=== PATIENT | female | born 1970 | race Two or more races ===

== ENCOUNTER 2023-01-13 09:43 | Emergency (ER) | payer MEDICAID, SELFPAY ==
[2023-01-13 09:49] VITALS: BP 154/90; PULSE 85; RESP 18; TEMP 36.8; O2SAT 98; BMI 36.4
[2023-01-13] MEDS: BENZOCAINE 30 ML, lidocaine HCL 15 ML MM (10:21)
[2023-01-13] MEDS: KETOROLAC TROMETHAMINE 30 MG/ML VIAL IM (10:21)
[2023-01-13] MEDS: AMOXICILLIN/POTASSIUM CLAV 1 TAB TABLET PO (10:21)
--- NOTE | 2023-01-13 10:28 | ED.GENADUL1 ---
HPI - General Adult General Chief complaint: Dental/Oral Stated complaint: TOOTHACHE Time Seen by Provider: 01/13/23 10:08 History of Present Illness HPI narrative: The patient coming to the ER with a lower dental pain that been going on at least for the last few days the patient did had a history of multiple dental issues before with dental work The patient is coming with a left lower dental pain denying any other complaints she did take Tylenol at home with no effect Related Data Previous Rx's Medication Instructions Recorded amoxicillin 875 mg-potassium 1 tab PO BID #20 tabs 01/13/23 clavulanate 125 mg tablet ibuprofen 600 mg tablet 600 mg PO Q8H PRN pain #20 tabs 01/13/23 Allergies Allergy/AdvReac Type Severity Reaction Status Date / Time acetaminophen [From Percocet] Allergy Unknown Verified 01/13/23 09:49 doxycycline Allergy Unknown Verified 01/13/23 09:49 oxycodone [From Percocet] Allergy Unknown Verified 01/13/23 09:49 Review of Systems ROS Status of ROS 10 or more systems reviewed and unremarkable except as noted in history and below PFSH PFSH Social History Smoking status: Never smoker Exam Narrative Exam Narrative: Nurses notes and vital signs reviewed and patient is not hypoxic Dental exam The patient have a multiple dental work in the left lower mandible in addition to the tooth #17 is totally decayed with the gum that is inflamed and red left-sided lymphadenopathy detected Nurses notes and vital signs reviewed and patient is not hypoxic. General: Well-appearing and in no apparent distress. Skin: Warm, dry, no pallor noted. No rash. Head: Normocephalic, atraumatic. Neck: Supple, non-tender. Eye: Pupils are equal, round and EOMI. No scleral icterus. Ears, Nose, Mouth, and Throat: TM are clear, no nasal mucosal hypertrophy. Oral mucosa is moist, no posterior oropharynx erythema, uvula is mid-line Cardiovascular: Regular Rate and Rhythm without murmur, gallop or rub. Respiratory: No accessory muscle use or respiratory distress. Lungs are clear to auscultation, no wheezing, rales or rhonchi Chest Wall: no tenderness Back: No midline thoracic or lumbar vertebral tenderness. No CVA tenderness Musculoskeletal: normal ROM, no calf or popliteal tenderness, no lower extremity edema/swelling GI: Abdomen is soft, non-distended. Normal bowel sounds. No masses appreciated. No tenderness to palpation. No rebound, guarding, or rigidity noted. Neurological: A&O x4. No cranial nerve dysfunction observed. No truncal ataxia. Moves all extremities. Sensation intact. Psychiatric: Cooperative and interactive. Normal mood and affect. Constitutional Vital Signs, click to edit/add: Last Vital Signs Temp 98.2 F 01/13/23 09:49 Pulse 85 01/13/23 09:49 Resp 18 01/13/23 09:49 BP 154/90 H 01/13/23 09:49 Pulse Ox 98 01/13/23 09:49 O2 Del Method Room Air 01/13/23 09:49 Course Vital Signs Vital signs: Vital Signs Temperature 98.2 F 01/13/23 09:49 Pulse Rate 85 01/13/23 09:49 Respiratory Rate 18 01/13/23 09:49 Blood Pressure 154/90 H 01/13/23 09:49 Pulse Oximetry 98 01/13/23 09:49 Oxygen Delivery Method Room Air 01/13/23 09:49 Temperature 98.2 F 01/13/23 09:49 Pulse Rate 85 01/13/23 09:49 Respiratory Rate 18 01/13/23 09:49 Blood Pressure 154/90 H 01/13/23 09:49 Pulse Oximetry 98 01/13/23 09:49 Oxygen Delivery Method Room Air 01/13/23 09:49 Medical Decision Making [facility] Narrative Medical decision making narrative: The patient presenting to us with a dental infection she was started on Augmentin in addition to supportive care of pain and she will be following up with her dentist with outpatient The patient is to follow up with primary care physician in next 2-3 days or to return to the emergency department should any of the signs or symptoms worsen or new symptoms develop. The patient agrees with the following Diagnosis and Treatment plan and the patient will be discharged home. Discharge Plan Discharge Chief Complaint: Dental/Oral Clinical Impression: Toothache, Dental abscess Time of Disposition Decision: 10:09 Condition: Good Mode of Transportation: Private Vehicle Prescriptions / Home Meds: New amoxicillin-pot clavulanate 875-125 mg tablet 1 tab PO BID Qty: 20 0RF ibuprofen 600 mg tablet 600 mg PO Q8H PRN (Reason: pain) Qty: 20 0RF Instructions: Dental Abscess (ED) Stand Alone Forms: Portal Instructions
== END 2023-01-13 10:38 | disposition home or self-care (01) ==
LOC: ER 10:33
PROVIDERS: Emergency Provider Emergency Medicine
DX: K08.89 Other specified disorders of teeth and supporting structures (principal); K04.7 Periapical abscess without sinus
CPT/HCPCS: 96372; 99284

== ENCOUNTER 2023-06-24 13:03 | Outpatient (OUT) | payer MEDICAID, SELFPAY ==
--- NOTE | 2023-06-24 13:12 | XR_ITS ---
The [place] [id number] Patient Name: VIKKI YEH MRN: [id number] date: 1970 Sex: F Assigned Patient Location: [facility] Current Patient Location: [facility] Accession/Order Number: [id number] Exam Date: 06/24/2023 13:20 Report Date: 06/24/2023 14:37 At the request of: NIR SPIVEY Procedure: XR lumbar spine min 4V EXAMINATION: XR lumbar spine min 4V HISTORY: Sciatica Right Side M54.31 COMPARISON: No relevant comparison available. FINDINGS: BONES: Normal alignment with no acute fracture or spondylolisthesis. Mild to moderate degenerative spondylosis and facet osteoarthropathy DISC SPACES: Mild to moderate multilevel disc space narrowing most significant at L5-S1 PARASPINOUS: Negative. No paraspinous abnormality is seen. OTHER: Negative. XR/XR lumbar spine min 4V IMPRESSION: Mild to moderate degenerative changes Electronically authenticated by: LYNN WILCOX Date: 06/24/2023 14:37
--- NOTE | 2023-06-24 13:12 | XR_ITS ---
The [address] [address] Patient Name: VIKKI YEH MRN: [id number] date: 1970 Sex: F Assigned Patient Location: [facility] Current Patient Location: Accession/Order Number: [id number] Exam Date: 06/24/2023 13:20 Report Date: 06/25/2023 06:38 At the request of: NIR SPIVEY Procedure: XR hip RT min 2V PROCEDURE: XR hip RT min 2V HISTORY: Right Hip Pain M25.551 COMPARISON: None. FINDINGS: BONES:No fracture, acute abnormality, or significant arthropathy. SOFT TISSUES:No visible soft tissue swelling. EFFUSION:None visible. OTHER: Negative. XR/XR hip RT min 2V IMPRESSION: 1. No acute bone abnormality or significant degenerative joint disease. Electronically authenticated by: ARISTEO GÓMEZ Date: 06/25/2023 06:38
== END 2023-06-24 13:04 | disposition home or self-care (01) ==
LOC: MAMMO 13:04
PROVIDERS: Visit Provider Nurse Practitioner
DX: Z12.31 Encounter for screening mammogram for malignant neoplasm of breast (principal); M54.31 Sciatica, right side; M25.551 Pain in right hip; M51.36 Other intervertebral disc degeneration, lumbar region
CPT/HCPCS: 72110; 73502; 77063; 77067

== ENCOUNTER 2023-07-09 15:27 | Outpatient (OUT) | payer MEDICAID, SELFPAY ==
--- OUTSIDE RECORDS SUMMARY | 2023-07-09 15:31 | XMS_ITS | CCD ---
Author Organization [facility] Care Team Providers Care Commanding Officer Garage Name Role Phone Shazia Coker Primary Care Physician Shazia Coker Attending Unavailable Sheela, Shazia Mcclain Admitting Unavailable Sheela, Shazia Mcclain Attending Unavailable Sheela, Shazia Mcclain Attending Unavailable Sheela, Shazia Mcclain Attending Unavailable Sheela, Shazia Mcclain Attending Unavailable Sheela, NURSING SERVICE DIRECTOR Shazia Mcclain Attending Unavailable Sheela, NURSING SERVICE DIRECTORAdriana Mcclain Admitting Unavailable Allergies Allergy Classification Reported Allergen(s) Allergy Type Date of Onset Reaction(s) Facility (2 sources) Doxycycline; Translations: [doxycycline] Drug Allergy Dizziness (finding) [facility] (2 sources) methazolAMIDE; Translations: [methazolamide] Drug Allergy Weal (disorder) [facility] (2 sources) oxyCODONE; Translations: [oxycodone] Drug Allergy Loss of consciousness (finding) [facility] Medications Current Medications Medication Drug Class(es) Dates Sig (Normalized) Sig (Original) loratadine 10 mg oral tablet (1 source) Start: 06-18-2023 take 10 mg by mouth once daily loratadine 10 mg, Oral, Daily, Refills(s) 0 Start Date: 06/18/23 Status: Ordered rimegepant 75 mg disintegrating oral tablet (1 source) Start: 07-03-2023 take 1 tablet by mouth once Nurtec ODT 75 mg oral tablet, disintegrating 75 mg = 1 tab(s), Oral, Once, # 8 tab(s), Refills(s) 0, Samples 8 Start Date: 07/03/23 Status: Ordered traMADol hydrochloride 50 mg oral tablet (1 source) Opioid Agonist Start: 06-18-2023 take 1 tablet by mouth every twelve hours as needed for pain traMADOL 50 mg Tab 50 mg = 1 tab(s), Oral, q12hr, PRN for pain, # 30 tab(s), Refills(s) 0, Pharmacy: [facility]/pharmacy #[id number], 150, cm, 06/18/23 13:20:00 EDT, Height/Length Dosing, 75.8, kg, 06/18/23 13:20:00 EDT, Weight Dosing Start Date: 06/18/23 Status: Ordered Problems Problem Classification Problem Date Documented Da te Episodic/Chronic Genitourinary symptoms and ill-defined conditions (1 source) Urinary incontinence 07-03-2023 Chronic Headache; including migraine (1 source) Migraine 07-03-2023 Chronic Malaise and fatigue (1 source) Fatigue 07-03-2023 Episodic Other non-traumatic joint disorders (1 source) Hip pain 06-18-2023 Episodic Other skin disorders (1 source) Changes in skin texture 07-03-2023 Episodic Other upper respiratory disease (1 source) Polyp of nasal cavity and/or nasal sinus 07-03-2023 Episodic Spondylosis; intervertebral disc disorders; other back problems (1 source) Backache 06-18-2023 Episodic Unclassified (1 source) Cancer cervix screening status 07-03-2023 Unclassified (4 sources) Patient encounter status 06-18-2023 Results Test Name Value Interpretation Reference Range Facility Outside Mammographyon 2023 Outside Mammography [id number]# 1.00TIFF Normal [facility] Reminderson 07-04-2023 Reminders - From: Shazia Kerr To: [facility] - Clinical; Sent: 07/04/2023 10:55:22 EDT Show up: 07/04/2023 10:55:00 EDT Subject: Ambulatory Reminder Due Date/Time: 07/05/2023 10:54:00 EDT labs look good. triglycerides are slightly elevated but cholesterol is good. changing diet will help bring triglycerides down. less greasy, fatty, fried foods Results: Date Result Name Ind Value Ref Range 07/03/2023 9:09 WBC 8.2 E9/L (4.0 - 11.0) 07/03/2023 9:09 RBC 4.6 E12/L (4.3 - 5.9) 07/03/2023 9:09 HGB 13.5 gm/dL (12.0 - 16.0) 07/03/2023 9:09 Hct 40.5 % (34.0 - 46.0) 07/03/2023 9:09 MCV 87.5 fL (80.0 - 100.0) 07/03/2023 9:09 MCH 29.1 pg (27.0 - 34.0) 07/03/2023 9:09 MCHC 33.2 gm/dL (31.4 - 36.0) 07/03/2023 9:09 RDW ((H)) 15.6 % (10.9 - 14.2) 07/03/2023 9:09 Platelet 338.0 E9/L (150.0 - 500.0) 07/03/2023 9:09 MPV 8.1 fL (6.4 - 10.8) 07/03/2023 9:09 Neutro Auto 61.1 % (36.0 - 75.0) 07/03/2023 9:09 Lymph Auto 25.0 % (14.0 - 50.0) 07/03/2023 9:09 Gallia Auto 7.4 % (4.0 - 14.0) 07/03/2023 9:09 Eos Auto 5.4 % (0.0 - 8.0) 07/03/2023 9:09 Basophil Auto 1.1 % (0.0 - 2.0) 07/03/2023 9:09 Neutro Absolute 5.0 E9/L (2.0 - 7.5) 07/03/2023 9:09 Lymph Absolute 2.1 E9/L (1.0 - 4.0) 07/03/2023 9:09 Gallia Absolute 0.6 E9/L (0.2 - 1.0) 07/03/2023 9:09 Eos Absolute 0.4 E9/L (0.0 - 0.5) 07/03/2023 9:09 Basophil Absolute 0.1 E9/L (0.0 - 0.2) 07/03/2023 9:09 Glucose Lvl 81 mg/dL (55 - 199) 07/03/2023 9:09 BUN 9 mg/dL (5 - 21) 07/03/2023 9:09 Creatinine 0.7 mg/dL (0.5 - 1.3) 07/03/2023 9:09 eGFR 103 mL/min/1.73 m2 (>=59 - ) 07/03/2023 9:09 BUN/Creat Ratio 13 (10 - 20) 07/03/2023 9:09 Sodium Lvl 136 mmol/L (135 - 145) 07/03/2023 9:09 Potassium Lvl 4.1 mmol/L (3.5 - 5.3) 07/03/2023 9:09 Chloride 105 mmol/L (101 - 111) 07/03/2023 9:09 CO2 26 mmol/L (21 - 31) 07/03/2023 9:09 AGAP 9 mEq/L (6 - 16) 07/03/2023 9:09 Calcium Lvl 9.2 mg/dL (8.9 - 11.1) 07/03/2023 9:09 Alk Phos 96 Int._Unit/L (21 - 98) 07/03/2023 9:09 ALT 20 Int._Unit/L (6 - 46) 07/03/2023 9:09 AST 20 Int._Unit/L (5 - 43) 07/03/2023 9:09 Total Protein 7.5 gm/dL (6.0 - 7.8) 07/03/2023 9:09 Albumin Lvl 4.2 gm/dL (3.3 - 5.0) 07/03/2023 9:09 Globulin 3.3 gm/dL (1.4 - 4.0) 07/03/2023 9:09 A/G Ratio 1.3 (1.1 - 2.2) 07/03/2023 9:09 Bili Total 0.4 mg/dL (0.0 - 1.1) 07/03/2023 9:09 Chol 143 mg/dL (120 - 200) 07/03/2023 9:09 Trig ((H)) 157 mg/dL ( - <=149) 07/03/2023 9:09 HDL 60 mg/dL 07/03/2023 9:09 LDL Direct 58 mg/dL ( - <=129) 07/03/2023 9:09 VLDL 31 mg/dL (7 - 40) 07/03/2023 9:09 TSH 2.05 mcIU/mL (0.34 - 5.60) Patient informed and voiced understanding. Normal [facility] CBC w/ Auto Diffon 4 Basophils/100 WBC (Bld) 1.1 % Normal 0.0-2.0 [facility] Comment on above: Performed By: #### 2 [id number] #### [facility] [address] [place] [address] Basophils/Leukocytes Auto (Bld) [Pure # fraction] 0.1 E9/L Normal 0.0-0.2 [facility] Comment on above: Performed By: #### 2 [id number] #### [facility] [address] [place] [address] Eosinophils (Bld) [#/Vol] 0.4 E9/L Normal 0.0-0.5 [facility] Comment on above: Performed By: #### 2 [id number] #### [facility] [address] [place] [address] Eosinophils/100 WBC (Bld) 5.4 % Normal 0.0-8.0 [facility] Comment on above: Performed By: #### 2 [id number] #### [facility] [address] [place] [address] Erythrocyte distribution width (RBC) [Ratio] 15.6 % High 10.9-14.2 [facility] Comment on above: Performed By: #### 2 [id number] #### [facility] [address] [place] [address] Hematocrit (Bld) [Volume fraction] 40.5 % Normal 34.0-46.0 [facility] Comment on above: Performed By: #### 2 [id number] #### [facility] [address] [place] [address] Hemoglobin (Bld) [Mass/Vol] 13.5 g/dL Normal 12.0-16.0 [facility] Comment on above: Performed By: #### 2 [id number] #### [facility] [address] [place] [address] Lymphocytes (Bld) [#/Vol] 2.1 E9/L Normal 1.0-4.0 [facility] Comment on above: Performed By: #### 2 [id number] #### [facility] [address] [place] [address] Lymphocytes/100 WBC (Bld) 25.0 % Normal 14.0-50.0 [facility] Comment on above: Performed By: #### 2 [id number] #### [facility] [address] [place] [address] MCH (RBC) [Entitic mass] 29.1 pg Normal 27.0-34.0 [facility] Comment on above: Performed By: #### 2 [id number] #### [facility] [address] [place] [address] MCHC (RBC) [Mass/Vol] 33.2 g/dL Normal 31.4-36.0 [facility] Comment on above: Performed By: #### 2 [id number] #### [facility] [address] [place] [address] MCV (RBC) [Entitic vol] 87.5 fL Normal 80.0-100.0 [facility] Comment on above: Performed By: #### 2 [id number] #### [facility] [address] [place] [address] Monocytes (Bld) [#/Vol] 0.6 E9/L Normal 0.2-1.0 [facility] Comment on above: Performed By: #### 2 [id number] #### [facility] [address] [place] [address] Neutrophils (Bld) [#/Vol] 5.0 E9/L Normal 2.0-7.5 [facility] Comment on above: Performed By: #### 2 [id number] #### [facility] [address] [place] [address] Neutrophils/100 WBC (Bld) 61.1 % Normal 36.0-75.0 [facility] Comment on above: Performed By: #### 2 [id number] #### [facility] [address] [place] [address] Platelet mean volume (Bld) [Entitic vol] 8.1 fL Normal 6.4-10.8 [facility] Comment on above: Performed By: #### 2 [id number] #### [facility] [address] [place] [address] Platelets (Bld) [#/Vol] 338.0 E9/L Normal 150.0-500.0 [facility] Comment on above: Performed By: #### 2 [id number] #### [facility] [address] [place] [address] RBC (Bld) [#/Vol] 4.6 E12/L Normal 4.3-5.9 [facility] Comment on above: Performed By: #### 2 [id number] #### [facility] [address] [place] [address] WBC corrected for nucl RBC Auto (Bld) [#/Vol] 8.2 E9/L Normal 4.0-11.0 [facility] Comment on above: Performed By: #### 2 [id number] #### [facility] [address] [place] [address] CHEMISTRYOrdered By: SYSTEM SYSTEM on 07-03-2023 Albumin [Mass/Vol] 4.2 g/dL Normal 3.3 - 5.0 gm/dL [facility] Albumin/Globulin [Mass ratio] 1.3 {ratio} Normal 1.1 - 2.2 [facility] ALP [Catalytic activity/Vol] 96 [iU]/d Normal 21 - 98 Int._Unit/L [facility] ALT No additional P-5'-P [Catalytic activity/Vol] 20 [iU]/d Normal 6 - 46 Int._Unit/L [facility] Anion gap [Moles/Vol] 9 mmol/L Normal 6 - 16 mEq/L R emisol Chem AST [Catalytic activity/Vol] 20 [iU]/d Normal 5 - 43 Int._Unit/L [facility] Bilirubin [Mass/Vol] 0.4 mg/dL Normal 0.0 - 1 .1 mg/dL [facility] Calcium [Mass/Vol] 9.2 mg/dL Normal 8.9 - 11. 1 mg/dL [facility] Chloride [Moles/Vol] 105 mmol/L Normal 101 - 1 11 mmol/L [facility] Cholesterol [Mass/Vol] 143 mg/dL Normal 120 - 200 mg/dL [facility] Cholesterol in HDL [Mass/Vol] 60 mg/dL Invalid Interpretation Code [facility] Comment on above: Result Comment: '>= 60 LOW RISK' '<= 40 HIGH RISK' Cholesterol in LDL [Mass/Vol] 58 mg/dL Normal <=129mg/dL [facility] Cholesterol in VLDL [Mass/Vol] 31 mg/dL Normal 7 - 40 mg/dL [facility] CO2 [Moles/Vol] 26 mmol/L Normal 21 - 31 mmol/L [facility] Creatinine [Mass/Vol] 0.7 mg/dL Normal 0.5 - 1.3 mg/dL [facility] eGFR 103 mL/min/1.73 m2 Normal >=59mL/mi n/1. 73 m2 [facility] Globulin (S) [Mass/Vol] 3.3 g/dL Normal 1.4 - 4.0 gm/dL [facility] Glucose [Mass/Vol] 81 mg/dL Normal 55 - 199 mg/dL [facility] Potassium [Moles/Vol] 4.1 mmol/L Normal 3.5 - 5.3 mmol/L [facility] Protein [Mass/Vol] 7.5 g/dL Normal 6.0 - 7.8 gm/dL [facility] Sodium [Moles/Vol] 136 mmol/L Normal 135 - 145 mmol/L [facility] Triglyceride [Mass/Vol] 157 mg/dL High <=149mg/dL [facility] TSH Qn 2.05 m[IU]/L Normal 0.34 - 5.60 mcIU/mL [facility] Urea nitrogen [Mass/Vol] 9 mg/dL Normal 5 - 21 mg/dL [facility] Urea nitrogen/Creatinine [Mass ratio] 13 mg/mg Normal 10 - 20 [facility] CMPon 07-03-2023 Albumin [Mass/Vol] 4.2 g/dL Normal 3.3-5.0 [facility] Comment on above: Performed By: #### 2 [id number] #### [facility] [address] [place] [address] Albumin/Globulin (S) [Mass conc ratio] 1.3 Normal 1.1-2.2 [facility] Comment on above: Performed By: #### 2 [id number] #### [facility] [address] [place] [address] ALP [Catalytic activity/Vol] 96 Int._Unit/L Normal 21-98 [facility] Comment on above: Performed By: #### 2 [id number] #### [facility] [address] [place] [address] ALT No additional P-5'-P [Catalytic activity/Vol] 20 Int._Unit/L Normal 6-46 [facility] Comment on above: Performed By: #### 2 [id number] #### [facility] [address] [place] [address] Anion gap [Moles/Vol] 9 mmol/L Normal 6-16 [facility] Comment on above: Performed By: #### 2 [id number] #### [facility] [address] [place] [address] AST [Catalytic activity/Vol] 20 Int._Unit/L Normal 5-43 [facility] Comment on above: Performed By: #### 2 [id number] #### [facility] [address] [place] [address] Bilirubin [Mass/Vol] 0.4 mg/dL Normal 0.0-1.1 [facility] Comment on above: Performed By: #### 2 [id number] #### [facility] [address] [place] [address] Calcium [Mass/Vol] 9.2 mg/dL Normal 8.9-11.1 [facility] Comment on above: Performed By: #### 2 [id number] #### [facility] [address] [place] [address] Chloride [Moles/Vol] 105 mmol/L Normal 101-111 [facility] Comment on above: Performed By: #### 2 [id number] #### [facility] [address] [place] [address] CO2 [Moles/Vol] 26 mmol/L Normal 21-31 [facility] Comment on above: Performed By: #### 2 990264 #### [facility] [address] [place] [address] Creatinine [Mass/Vol] 0.7 mg/dL Normal 0.5-1.3 [facility] Comment on above: Performed By: #### 2 085885 #### [facility] [address] [place] [address] Globulin (S) [Mass/Vol] 3.3 g/dL Normal 1.4-4.0 [facility] Comment on above: Performed By: #### 2 135218 #### [facility] [address] [place] [address] Glucose [Mass/Vol] 81 mg/dL Normal 55-199 [facility] Comment on above: Performed By: #### 2 [id number] #### [facility] [address] [place] [address] Potassium [Moles/Vol] 4.1 mmol/L Normal 3.5-5.3 [facility] Comment on above: Performed By: #### 2 627187 #### [facility] [address] [place] [address] Protein [Mass/Vol] 7.5 g/dL Normal 6.0-7.8 [facility] Comment on above: Performed By: #### 2 855752 #### [facility] [address] [place] [address] Sodium [Moles/Vol] 136 mmol/L Normal 135-145 [facility] Comment on above: Performed By: #### 2 748334 #### [facility] [address] [place] [address] Urea nitrogen [Mass/Vol] 9 mg/dL Normal 5-21 [facility] Comment on above: Performed By: #### 2 532256 #### [facility] [address] [place] [address] Urea nitrogen/Creatinine [Mass ratio] 13 No Units Normal 10-20 [facility] Comment on above: Performed By: #### 2 [id number] #### [facility] [address] [place] [address] Family Medicine Office/Clini c Noteon 07-03-2023 Family Medicine Office/Clinic Note HPI Staff Vikki is a 52 year old female presenting for well woman Woman check up: Last pap: 2020 Last Suze: 2020 Results of lap pap: normal but in 2019 had hyperplasia Where was it done: [place] hx: # of pregnancies.2.. abortions.0.. live births.2.. living children...2 menstrual cycle (normal,heavy,ect): D&C after hyperplasia and it normalized her periods. Had her on progesterone for a couple months History of STD: no Do you want tested for STD today: yes Vaginal discharge, odor, itching: none Self breast exam at home? she doesn't she has lumpy breasts and would call every month thinking something's wrong Hx of breast, cervical or uterine cancer in the family: none questions/concerns: wants to see a urogynecologist for incontinence that's worsening History of Present Illness pt presents today for well woman exam Review of Systems PHQ Score Initial Depression Screen Score: 0 SCORE Physical Exam Vitals & Measurements T: 36.7 ?C(Temporal Artery) HR: 68(Peripheral) RR: 16 BP: 118/66 SpO2: 98% HT: 59 in HT: 150 cm WT: 77.10 kg WT: 169.62 lb BMI: 34.27 General: Well developed, well nourished, in no acute distress Neck: Neck supple. No masses or palpable cervical nodes. Trachea midline. Thyroid without nodules, masses, tenderness, or enlargement Breast: No mass, nodule, discharge, or erythema bilaterally, and no axillary lymphadenopathy Lungs: Normal respiratory effort and clear to auscultation Cardio: Regular rate and rhythm, normal S1 and S2, no murmur, no rub Abdomen: Soft, non-distended, non-tender, normal bowel sounds x4 Gyno: normal external genitalia. Urethra no discharge. Vagina normal without lesions, no vaginal discharge. Cervix normal, without lesions. Uterus normal. No adnexal masses. Pap obtained Neurologic: Grossly normal Skin: Faxon, moist, no tenting Lymph Nodes: No cervical adenopathy, nodes normal Mental Status: Alert and oriented x3. Normal mood and affect Assessment/Plan 1. Well woman exam (Z01.419: Encounter for gynecological examination (general) (routine) without abnormal findings) pt presents today for well woman exam. BSE discussed. mammogram done at [facility]. pap obtained without difficulty. pt scheduled for MRI of back next weeks Ordered: CBC w/ Auto Diff Comprehensive Metabolic Panel Lab Specimen Collect 55900 Lipid Panel PAP [id number] CT/GC/Trich HPV rflx Genotype PAP 520856 CT/GC/Trich HPV rflx Genotype Thyroid Stimulating Hormone 2. Screening for hyperlipidemia (Z13.220: Encounter for screening for lipoid disorders) lipid panel drawn Ordered: CBC w/ Auto Diff Comprehensive Metabolic Panel Lab Specimen Collect 59220 Lipid Panel PAP 324144 CT/GC/Trich HPV rflx Genotype Thyroid Stimulating Hormone 3. Screening for thyroid disorder (Z13.29: Encounter for screening for other suspected endocrine disorder) TSH drawn Ordered: CBC w/ Auto Diff Comprehensive Metabolic Panel Lab Specimen Collect 32987 Lipid Panel PAP [id number] CT/GC/Trich HPV rflx Genotype Thyroid Stimulating Hormone 4. Fatigue (R53.83: Other fatigue) pt c/o fatigue will check CBC and TSH Ordered: CBC w/ Auto Diff Comprehensive Metabolic Panel Lab Specimen Collect 88315 Lipid Panel PAP [id number] CT/GC/Trich HPV rflx Genotype Thyroid Stimulating Hormone 5. Change of, skin texture (R23.4: Changes in skin texture) area on left thigh is dark, hard and has changed in texture. will refer to SHELLY huizar Ordered: [facility] External Ambulatory Referral Lab Specimen Collect [id number]/GC/Trich HPV rflx Genotype 6. Urinary incontinence in female (R32: Unspecified urinary incontinence) c/o worsening urinary incontinence pt requesting referral to urogyn in [place]. Ordered: [facility] External Ambulatory Referral PAP [id number] CT/GC/Trich HPV rflx Genotype 7. Nasal polyps (J33.9: Nasal polyp, unspecified) pt had nasal polyps removed in 2019 and 2020. was supposed to follow up with ENT annually but has not done so since moving to [place], will refer to Dr. Bautista Ordered: [facility] External Ambulatory Referral PAP [id number] CT/GC/Trich HPV rflx Genotype 8. Screening for cervical cancer (Z12.4: Encounter for screening for malignant neoplasm of cervix) pap obtained . pt requesting STD testing as well Ordered: PAP [id number] CT/GC/Trich HPV rflx Genotype PAP [id number] CT/GC/Trich HPV rflx Genotype 9. Migraine (G43.909: Migraine, unspecified, not intractable, without status migrainosus) 10. BMI 34.0-34.9,adult (Z68.34: Body mass index [BMI] 34.0-34.9, adult) BMI education complete Ordered: Body Mass Index (BMI) documented 3008F CBC w/ Auto Diff Comprehensive Metabolic Panel Current tobacco non-user 1036F Depression Screening Negative 3352F Lipid Panel Most recent diastolic blood pressure <80 mm Hg 3078F PAP [id number] CT/GC/Trich HPV rflx Genotype Systolic BP <130 mm Hg (Most Recent) 3074F Thyroid Stimulating Hormone 11. Class 1 obesity due to e (more content not included)... Normal [facility] Comment on above: Result Comment: Elec tronically Signed By: Shazia Kerr\.br\Date and Time Signed: 07/03/23 09:29 EDT HEMATOLOGYOrdered By: SYSTEM SYSTEM on 07-03-2023 Basophils/100 WBC (Bld) 1.1 % Normal 0.0 - 2.0 % [facility] Basophils/Leukocytes Auto (Bld) [Pure # fraction] 0.1 E9/L Normal 0.0 - 0.2 E9/L [facility] Eosinophils (Bld) [#/Vol] 0.4 E9/L Normal 0.0 - 0.5 E9/L [facility] Eosinophils/100 WBC (Bld) 5.4 % Normal 0.0 - 8.0 % [facility] Erythrocyte distribution width (RBC) [Ratio] 15.6 % High 10.9 - 14.2 % [facility] Hematocrit (Bld) [Volume fraction] 40.5 % Normal 34.0 - 46.0 % [facility] Hemoglobin (Bld) [Mass/Vol] 13.5 g/dL Normal 12.0 - 16.0 gm/dL [facility] Lymphocytes (Bld) [#/Vol] 2.1 E9/L Normal 1.0 - 4.0 E9/L [facility] Lymphocytes/100 WBC (Bld) 25.0 % Normal 14.0 - 50.0 % [facility] MCH (RBC) [Entitic mass] 29.1 pg Normal 27.0 - 34.0 pg [facility] MCHC (RBC) [Mass/Vol] 33.2 g/dL Normal 31.4 - 36.0 gm/dL [facility] MCV (RBC) [Entitic vol] 87.5 fL Normal 80.0 - 100.0 fL [facility] Monocytes (Bld) [#/Vol] 0.6 E9/L Normal 0.2 - 1.0 E9/L [facility] Monocytes/100 WBC (Bld) 7.4 % Normal 4.0 - 14.0 % [facility] Neutrophils (Bld) [#/Vol] 5.0 E9/L Normal 2.0 - 7.5 E9/L [facility] Neutrophils/100 WBC (Bld) 61.1 % Normal 36.0 - 75.0 % [facility] Platelet mean volume (Bld) [Entitic vol] 8.1 fL Normal 6.4 - 10.8 fL [facility] Platelets (Bld) [#/Vol] 338.0 E9/L Normal 150.0 - 500.0 E9/L [facility] RBC (Bld) [#/Vol] 4.6 E12/L Normal 4.3 - 5.9 E12/L [facility] WBC corrected for nucl RBC Auto (Bld) [#/Vol] 8.2 E9/L Normal 4.0 - 11.0 E9/L [facility] Lipid Panelon 07-03-2023 Cholesterol [Mass/Vol] 143 mg/dL Normal 120-200 [facility] Comment on above: Performed By: #### 2 [id number] #### [facility] [address] [place] [address] Cholesterol in HDL [Mass/Vol] 60 mg/dL Invalid Interpretation Code [facility] Comment on above: Result Comment: '>= 60 LOW RISK' '<= 40 HIGH RISK' Performed By: #### 2 [id number] #### [facility] [address] [place] [address] Cholesterol in LDL [Mass/Vol] 58 mg/dL Normal <=129 [facility] Comment on above: Performed By: #### 2 [id number] #### [facility] [address] [place] [address] Cholesterol in VLDL [Mass/Vol] 31 mg/dL Normal 7-40 [facility] Comment on above: Performed By: #### 2 272476 #### [facility] [address] [place] [address] Triglyceride [Mass/Vol] 157 mg/dL High <=149 [facility] Comment on above: Performed By: #### 2 [id number] #### [facility] [address] [place] [address] PAP [id number] 07-03-2023 PAP [id number] cancel Invalid Interpretation Code [facility] Comment on above: Performed By: #### 1 [id number] #### [facility] [address] [place] [address] Gynecological Body Site ENDOCERVIX Normal [facility] Comment on above: Performed By: #### 1 [id number] #### [facility] [address] [place] [address] Physician Referralon 024 Physician Referral [id number] #1.00TIFF Normal [facility] Physician Referral [id number] #1.00TIFF Normal [facility] Physician Referral [id number] 9#1.00TIFF Normal [facility] TSHon 07-03-2023 TSH Qn 2.05 m[IU]/L Normal 0.34-5.60 [facility] Comment on above: Performed By: #### 2 [id number] #### [facility] [address] [place] [address] eGFRon 07-03-2023 eGFR 103 mL/min/1.73 m2 Normal >=59 [facility] Comment on above: Order Comment: Order added by Discern Expert. Performed By: #### 1 [id number] #### [facility] [address] [place] [address] RAD - MISCon 06-25-2023 RAD - MIS [id number]# 1.00TIFF Normal [facility] RAD - MISC [id number] #1.00TIFF Normal [facility] Ambulatory Visit Summaryon 0 06-18-2023 Ambulatory Visit Summary VIKKI YEH :1970 Visit Date:06/18/2023 Ambulatory Visit Instructions Your Diagnosis Breast cancer screening by mammogram Back pain with right-sided sciatica Right hip pain BMI 33.0-33.9,adult Non-smoker Tests Performed MA Mamm Screen w/CAD if perf and 3D [place] -- Results Pending -- XR Hip 2-3 Views Right -- Results Pending -- XR Spine Lumbosacral Minimum 4 Views -- Results Pending -- Please visit your patient portal for your results or contact your primary care physician. Your Care Team Attending Physician - Shazia Kerr Primary Care Physician - Shazia Kerr This Is Your Medications List loratadine Procedures Performed Surgery, Surgery, Surgery. Discharge Vitals Heart Rate (Peripheral) 80 Respiratory Rate 18 Blood Pressure 124/76 Height 150 cm Height 59 in Weight 75.75 kg Weight 166.65 lb BMI 33.67 What to do next Scheduled Follow-Up Appointments Saturday. 2023 8:20 AM EDT With: Shazia Kerr Where: [facility] [place] Normal [facility] Family Medicine Office/Clini c Noteon 06-18-2023 Family Medicine Office/Clinic Note HPI Staff Vikki is a 52 year old female presenting to [facility] care Establish Care: History: Any previous diagnosis: Gerd, Migraine, Vertigo, Allergic Rhinitis , Right side Tinnitus, Chronic Sinusitis History of seeing any specialist: ENT When was your last doctors visit: Last provider: new to area Any recent labs: nothing in the last year Health Maintenance UTD: Colonoscopy: 2 years ago, removed one polyup everything else was normal Mammogram: 2000 normal( would like order for [facility] and go to [place]) Pelvic/Pap: 2000 normal EGD: had 2 of them had them done in [place] Current issues/complaints: Pain characteristics: Pain location: Right hip and leg pain Intensity:3/10 sitting, when moving or at night 7/10 Onset: 5-6 months ago gradually started, worse in 2 months Medication used: Aspercreme, Bengay, heating pad, tylenol Having a hard time going up stairs, this Saturday pain woke her up out of sleep had to sleep on the chair. Had hit right hip a few time on end of bed unsure if this is what caused the pain. Having radiculopathy down right side. Pain is aching and then turns to sharp, night time is the worst. Hasn't had any imaging done. has been told she has herniated disc at either L4 or L5. Has done PT and injections done for that. Would like referral to ENT she is to be checked ever 6 months to have nasal passaged checked Hasn't had a migraines in several months. Pt states she use to see a neurologist and was diagnosed with migraines. She use to take Nurtec and another medication. Pt is going to contact her old pharmacy and get the names and doses of medication. History of Present Illness pt c/o right hip and lower back pain with sciatica Review of Systems PHQ Score Initial Depression Screen Score: 0 SCORE Physical Exam Vitals & Measurements HR: 80(Peripheral) RR: 18 BP: 124/76 SpO2: 99% HT: 59 in HT: 150 cm WT: 75.75 kg WT: 166.65 lb BMI: 33.67 General: alert, no acute distress ENMT: oral mucosa moist, no pharyngeal erythema or exudate Cardiovascular: regular rate and rhythm, normal peripheral perfusion Respiratory: Lungs CTA, respirations non labored Extremities: no deformity, no trauma Neurological: oriented x 4, LOC appropriate for age, CN II-XII intact, motor strength equal & normal bilaterally, speech normal Assessment/Plan 1. Back pain with right-sided sciatica (M54.31: Sciatica, right side) low back pain with right sciatica. pt has been doing exercises she learned at Physical therapy for about 2 months. can not take anit inflammatory due to acid reflux. will order medrol dose pack and tramadol for bedtime. is not able to sleep due to pain. RTC 2 weeks for well woman exam Ordered: methylPREDNISolone, = 1 packet(s), Oral, As Directed, as directed on package labeling, X 6 day(s), # 21 tab(s), Refills(s) 0, Pharmacy: [facility]/pharmacy #[id number], 150, cm, 06/18/23 13:20:00 EDT, Height/Length Dosing, 75.8, kg, 06/18/23 13:20:00 EDT, Weight Dosing tramadol, 50 mg = 1 tab(s), Oral, q12hr, PRN for pain, # 30 tab(s), Refills(s) 0, Pharmacy: [facility]/pharmacy #[id number], 150, cm, 06/18/23 13:20:00 EDT, Height/Length Dosing, 75.8, kg, 06/18/23 13:20:00 EDT, Weight Dosing XR Hip 2-3 Views Right XR Spine Lumbosacral Minimum 4 Views 2. Right hip pain (M25.551: Pain in right hip) x ray order provided will go to [facility] Ordered: methylPREDNISolone, = 1 packet(s), Oral, As Directed, as directed on package labeling, X 6 day(s), # 21 tab(s), Refills(s) 0, Pharmacy: [facility]/pharmacy #[id number], 150, cm, 06/18/23 13:20:00 EDT, Height/Length Dosing, 75.8, kg, 06/18/23 13:20:00 EDT, Weight Dosing tramadol, 50 mg = 1 tab(s), Oral, q12hr, PRN for pain, # 30 tab(s), Refills(s) 0, Pharmacy: [facility]/pharmacy #[id number], 150, cm, 06/18/23 13:20:00 EDT, Height/Length Dosing, 75.8, kg, 06/18/23 13:20:00 EDT, Weight Dosing XR Hip 2-3 Views Right XR Spine Lumbosacral Minimum 4 Views 3. Breast cancer screening by mammogram (Z12.31: Encounter for screening mammogram for malignant neoplasm of breast) mammogram order provided Ordered: methylPREDNISolone, = 1 packet(s), Oral, As Directed, as directed on package labeling, X 6 day(s), # 21 tab(s), Refills(s) 0, Pharmacy: [facility]/pharmacy #[id number], 150, cm, 06/18/23 13:20:00 EDT, Height/Length Dosing, 75.8, kg, 06/18/23 13:20:00 EDT, Weight Dosing tramadol, 50 mg = 1 tab(s), Oral, q12hr, PRN for pain, # 30 tab(s), Refills(s) 0, Pharmacy: [facility]/pharmacy #[id number], 150, cm, 06/18/23 13:20:00 EDT, Height/Length Dosing, 75.8, kg, 06/18/23 13:20:00 EDT, Weight Dosing MA Mamm Screen w/CAD if perf and 3D [place] 4. BMI 33.0-33.9,adult (Z68.33: Body mass index [BMI] 33.0-33.9, adult) BMI education complete Ordered: methylPREDNISolone, = 1 packet(s), Oral, As Directed, as directed on package labeling, X 6 day(s), # 21 tab(s), Refills(s) 0, Pharmacy: [facility]/pharmacy #[id number], 150, cm, 06/18/23 13:20:00 EDT, Height/Length Dosing, 75.8, kg, 06/18/23 13:20:00 EDT, Weight Dosing tramadol, 50 mg = 1 tab(s), Oral, q12hr, PRN for pain, (more content not included)... Normal [facility] Comment on above: Result Comment: Elec tronically Signed By: Sheela BLANCO, Shazia Mcclain\.br\Date and Time Signed: 06/18/23 17:37 EDT Encounters Encounter Date Encounter Type Care Provider Facility Start: 07-03-2023 End: 07-04-2023 ambulatory Shazia Coker Facility:[facility] Start: 07-03-2023 End: 07-03-2023 Lab Drop off Shazia Coker [facility] Start: 06-18-2023 End: 06-19-2023 ambulatory Shazia L Sheela Facility:[facility] Margaret noe Start: 06-17-2023 ambulatory Shazia L Sheela Facility: [facility] [place] Procedures Date Procedure Procedure Detail Performing Clinician Cerclage Shazia Coker Comment on above: 2007 Surgery (qualifier value) Margareth bustos Sheela Surgical procedure Shazia Schw ab Payers Date Payer Category Payer Private Health Insurance [id number] 1970 Unknown [id number] 1970 Unknown [id number] 1970 Unknown [id number] 1970 Unknown [id number] Social History Date Type Detail Facility Start: 07-03-2023 Tobacco smoking status Never s moked tobacco (finding) [facility] Tobacco smoking status Never [facility] Sex Assigned At Female [facility] Evaluation + Plan note 07-03-2023 Note Date & Type Note Facility 07-03-2023 Evaluation + Plan note Diagnostic Tests PendingWIP [id number] CT/GC/Trich HPV rflx Genotype 07/03/23 [facility] Hospital course Narrative Note Date & Type Note Facility Hospital course Narrative No data available for this section [facility] Hospital Discharge instructions Note Date & Type Note Facility Hospital Discharge instructions No data available for this section [facility] Progress note Note Date & Type Note Facility Progress note No data available for this section [facility] Summary Purpose Family History No Family History Records Found Advance Directives No Advanced Directives Records FoundNo Advanced Directives Records FoundNo Advanced Directives Records FoundNo Advanced Directives Records FoundNo Advanced Directives Records FoundNo Advanced Directives Records FoundNo Advanced Directives Records Found Additional Source Comments Patient Care team informatio n (unrecognized section and content) Personnel Name: Shazia Kerr Address: Address: [address] [place] [address]- INFORMATION SOURCE (unrecogn ized section and content) DATE CREATED AUTHOR 07/04/2023 [facility] DATE CREATED AUTHOR AUTHOR'S ORGANIZ ATION 07/05/2023 [facility] DATE CREATED AUTHOR AUTHOR'S ORGANIZ ATION 07/06/2023 [facility] FOR RECORDS PERTAINING TO PATIENTS WHO ARE OR HAVE BEEN ENROLLED IN A CHEMICAL DEPENDENCY/SUBSTANCEABUSE PROGRAM, SOME INFORMATION MAY BE OMITTED. This clinical summary was aggregated from multiple sources. Caution should be exercised in using it in the provision of clinical care. This summary normalizes information from multiple sources, and as a consequence, information in this document may materially change the coding, format and clinical context of patient data. In addition, data may be omitted in some cases. CLINICAL DECISIONS SHOULD BE BASED ON THE PRIMARY CLINICAL RECORDS. [facility] [employer] provides no warranty or guarantee of the accuracy or completeness of information in this document.
--- NOTE | 2023-07-09 15:32 | MR_ITS ---
[address] [address] Patient Name: VIKKI YEH MRN: [id number] date: 1970 Sex: F Assigned Patient Location: MRI Current Patient Location: Accession/Order Number: [id number] Exam Date: 07/09/2023 15:44 Report Date: 07/10/2023 07:25 At the request of: NIR SPIVEY Procedure: MR lumbar spine wo con EXAMINATION: MR lumbar spine wo con HISTORY: Degenerative disc disase, low back pain with right sciatica COMPARISON: 06/24/23 plain x-ray TECHNIQUE: A variety of imaging planes and parameters were utilized for visualization of suspected pathology. FINDINGS: For the purposes of numbering, sagittal T2 image # 8 extends from the T10 vertebral body superiorly to the S3-S4 level inferiorly. PARASPINAL AREA: Normal with no visible mass. BONES: Normal alignment of the lumbar vertebral bodies with no acute fracture or spondylolisthesis. Signal abnormality inferior L4 superior L5 vertebral bodies with decreased T1 increased T2 signal, Modic type I changes . Mild degenerative spondylosis and facet osteoarthropathy CORD/CAUDA EQUINA: Normal caliber, contour, and signal intensity. DISC LEVELS: 12-L1: Early degenerative disc disease is present without focal protrusion or neural impingement. L1-L2: Moderate degenerative disc disease is present without visible neural impingement. L2-L3: Moderate degenerative disc disease is present without visible neural impingement. L3-L4: Moderate degenerative disc disease is present without visible neural impingement. L4-L5: Modic 1 endplate changes consistent with edema/inflammation. Asymmetric narrowing right greater than left. Moderate diffuse disc/osteophyte complex with posterior broad-based disc herniation of the protrusion type, extending posteriorly up to 3.4 mm, this abuts but does not efface the nerves. No foraminal stenosis. L5-S1: Disc desiccation. Posterior disc protrusion measuring 2 mm. No central or foraminal stenosis MR/MR lumbar spine wo con IMPRESSION: Degenerative changes throughout the lumbar spine most significant at L4-L5 where posterior central broad-based disc herniation the protrusion type is observed abutting but not effacing the nerves Electronically authenticated by: LYNN WILCOX Date: 07/10/2023 07:25
== END 2023-07-09 15:28 | disposition home or self-care (01) ==
LOC: MRI 15:27
PROVIDERS: PCP Nurse Practitioner; Visit Provider Nurse Practitioner
DX: M51.36 Other intervertebral disc degeneration, lumbar region (principal); M54.41 Lumbago with sciatica, right side
CPT/HCPCS: 72148

== ENCOUNTER 2023-09-10 13:20 | Outpatient (OUT) | payer MEDICAID, SELFPAY ==
--- NOTE | 2023-09-10 | CONS_ITS ---
CONSULTATION DATE: 09/10/2023 TO: Antoine Corral M.D. and Dr. Faviola Toscano CHIEF COMPLAINT: Includes severe right hip pain. HISTORY: Patient complains of pain in her right hip area. She is a 52-year-old female, who reports having pain starting in this area approximately six months ago. It occurred spontaneously, increased gradually to its present state, where she complains at least 5-7/10 pain, described as a stabbing type of pain in her right hip area, increased with activities such as standing, walking and performing transitioning maneuvers. She feels most comfortable in the semi- recumbent position. Denies any change in bowel and bladder habits or new sensorimotor changes in the lower extremities. CURRENT MEDICATIONS: Include Aleve, topical Maikel-Good, Biofreeze and she reports she has tried Flexeril in the past. Her FERN on today?s visit is 42%. EXAMINATION: Notable for patient having no clinical radiculopathy or myelopathy involving the lower extremities. The patient did have significant tenderness overlying the right greater trochanteric area, just proximal to the insertion of the gluteus medius muscle on the right side. IMPRESSION: Our impression is patient with chronic pain secondary to right trochanteric bursitis. RECOMMENDATIONS: I have recommended she consider using a Lidoderm patch over the affected area. I have given her a script for baclofen 10 mg pills, half a pill to one pill b.i.d. and to consider proceeding with a right trochanteric bursa injection in the office. Gone over the details of the procedure with the patient. All her questions were answered. She agrees to proceed with the outlined plan. Will obtain approval for the procedure. As part of providing excellent, safe, comprehensive care, the following was completed at our patient's visit: 1. A medication reconciliation and review to ensure accurate knowledge of current/active medications, including asking our patients to inform us about any bugr-esn-ncvhyeh medications or herbal remedies/nutritional supplements/alternative remedies. 2. A review to specifically ensure our patients have had annual screening for: elevated body mass index (BMI, see intake chart for exact total), tobacco use, screening for depression, and screening for unhealthy alcohol use. When screening is concerning, patients are provided with education and the specific recommendation to discuss the concerning health issue and treatment options with their primary care provider. DAWNA
--- OUTSIDE RECORDS SUMMARY | 2023-09-10 13:43 | XMS_ITS | CCD ---
Author Organization [facility] Care Team Providers Care Industrial Staff Nurse Name Role Phone Shazia Coker Primary Care Physician Patric Shazia L Attending Unavailable Patric, ADULT AND PEDIATRIC NEUROLOGIST Shazia L Attending Unavailable Patric, ADULT AND PEDIATRIC NEUROLOGIST Shazia L Admitting Unavailable Patric, ADULT AND PEDIATRIC NEUROLOGIST Shazia L Admitting Unavailable Patric, ADULT AND PEDIATRIC NEUROLOGIST Shazia L Attending Unavailable Patric, ADULT AND PEDIATRIC NEUROLOGIST Shazia L Attending Unavailable Patric, ADULT AND PEDIATRIC NEUROLOGIST Shazia L Attending Unavailable Patric, FRANCIS Shazia L Attending Unavailable MD Antoine Corral Primary Care Provider MD Justus Toscano Attending Provider DOROTHY DYER Attending Unavailable PATRIC, SHAZIA Referring Unavailable GERALDINE MOISE Attending Unavailable PATRIC, SHAZIA Referring Unavailable Justus Toscano Attending Unavailable Justus Toscano Admitting Unavailable Antoine Corral Primary Care Unavailable Allergies Allergy Classification Reported Allergen(s) Allergy Type Date of Onset Reaction(s) Facility (2 sources) Doxycycline; Translations: [doxycycline] Drug Allergy Dizziness (finding) [facility] (4 sources) methazolAMIDE; Translations: [methazolamide] Drug Allergy 4 Weal (disorder) [facility] (2 sources) oxyCODONE; Translations: [oxycodone] Drug Allergy Loss of consciousness (finding) [facility] (2 sources) Acetaminophen / oxyCODONE Drug Allergy 4 Anaphylaxis [facility] (2 sources) doxyclin Allergy to substance 4 Dizziness [facility] Medications Current Medications Medication Drug Class(es) Dates Sig (Normalized) Sig (Original) cholecalciferol 0.025 mg oral capsule (1 source) Vitamin D Start: 08-29-2023 take 25 ug by mouth once daily Cholecalciferol (Vitamin D3) Active 25 MCG PO Daily August 29, 2023 12:00am loratadine 10 mg oral tablet (2 sources) Start: 08-29-2023 take 1 tablet by mouth once daily Loratadine (Claritin) 10 mg tablet Active 10 MG PO Daily August 29, 2023 12:00am Start: 06-18-2023 take 10 mg by mouth [...] Ordered traMADol hydrochloride 50 mg oral tablet (2 sources) Opioid Agonist Start: 08-29-2023 Tramadol Activ e MG PO August 29, 2023 12:00am Start: 06-18-2023 take 1 tablet by edward th every twelve hours as needed for pain traMADOL 50 mg Tab 50 mg = 1 tab(s), Oral, q12hr, PRN for pain, # 30 tab(s), Refills(s) 0, Pharmacy: [facility]/pharmacy #[id number], 150, cm, 06/18/23 13:20:00 EDT, Height/Length Dosing, 75.8, kg, 06/18/23 13:20:00 EDT, Weight Dosing Start Date: 06/18/23 Status: Ordered Completed/Discontinued Medications Medication Drug Class(es) Dates Sig (Normalized) Sig (Original) Ciprofloxacin (2 sources) Quinolone Antimicrobial Start: 04-17-2023 End: 08-29-2023 Ciprofloxacin Hcl (Ciloxan) 0.3 % ointment Discontinued 1 APPLIC EYE-LEFT Three times daily 3.5 April 17, 2023 1:00am August 29, 2023 1:16pm Start: 04-17-2023 Ciprofloxacin Hcl (Ciloxan) 0.3 % ointment Active 1 APPLIC EYE-LEFT Three times daily 3.5 April 17, 2023 1:00am fluticasone propionate 0.05 mg/actuat metered dose nasal spray (1 source) Corticosteroid Start: 08-29-2023 End: 08-29-2023 Fluticasone Propionate Discontinued INTRANASAL August 29, 2023 12:00am August 29, 2023 1:16pm Problems Problem Classification Problem Date Documented Date Episodic/Chronic Esophageal disorders (2 sources) Gastroesophageal reflux disease; Translations: [Gastro-esophageal reflux disease without esophagitis] 04-17-2023 Chronic Genitourinary symptoms and ill-defined conditions (1 source) Urinary incontinence 07-03-2023 Chronic Headache; including migraine (1 source) Migraine 07-03-2023 Chronic Malaise and fatigue (1 source) Fatigue 07-03-2023 Episodic Other non-traumatic joint disorders (1 source) Hip pain 06-18-2023 Episodic Other skin disorders (1 source) Changes in skin texture 07-03-2023 Episodic Other upper respiratory disease (2 sources) Seasonal allergic rhinitis; Translations: [Other seasonal allergic rhinitis] 04-17-2023 Chronic Other upper respiratory disease (1 source) Polyp of nasal cavity and/or nasal sinus 07-03-2023 Episodic Spondylosis; intervertebral disc disorders; other back problems (1 source) Backache 06-18-2023 Episodic Unclassified (1 source) Cancer cervix screening status 07-03-2023 Unclassified (4 sources) Patient encounter status 06-18-2023 Unclassified (1 source) Low back pain, unspecified; Translations: [Low back pain, unspecified] Onset: 08-28-2023 Results Test Name Value Interpretation Reference Range Facility XR lumbar spine 6V w bending on 08-28-2023 XR lumbar spine 6V w bending [facility] [place] [address] XRay Report Signed Patient: Vikki Power MR#: [id number] [birth year] : 1970 Acct:[id number] Age/Sex: 52 / F ADM Date: 08/28/23 Loc: XD Room: Type: [facility] Attending Dr: Justus Toscano MD Copies to: Justus Toscano MD Ordering Provider: Justus Toscano MD Date of Service: 08/28/23 XR/XR lumbar spine 6V w bending: M54.50 - Low back pain, unspecified LUMBAR SPINE WITH FLEXION, EXTENSION AND BENDING VIEWS - 6 views: CLINICAL HISTORY: Low back pain with radiation to the hips and down to the left knee. No reported injury. COMPARISON: 06/24/2023 Standing AP neutral, right and left bending and lateral views in neutral, flexion and extension were obtained. There is reverse S-shaped thoracolumbar scoliotic curvature. No acute compression fractures are identified. There is minimal retrolisthesis of L3 on L4, L4 and L5 and L5 on S1. Alignment does not change significantly with flexion or extension. There is mild multilevel disc space narrowing and endplate spurring. There is also mid and lower lumbar facet hypertrophy. The SI joints are intact. No paraspinal soft tissue abnormalities are seen. XR/XR lumbar spine 6V w bending IMPRESSION: SCOLIOSIS AND DEGENERATIVE CHANGES, DESCRIBED. Impression dictated by: Brandi Weinstein M.D.08/28/2023 4:52 PM Dictation Location: [place] [address] Transcribed By: [facility] 08/28/23 1652 Dictated By: Brandi Weinstein MD 08/28/23 1644 Signed By: 08/28/23 1652 Normal [facility] Physician Referralon 024 Physician Referral [id number]#1.00TIFF Normal [facility] Consultation Noteon 07-10-19 Consultation Note [id number] #1.00TIFF Normal [facility] RAD - MRI Reporton RAD - MRI Report [id number] #1.00TIFF Normal [facility] Reminderson 07-10-2023 Reminders - From: Shazia Kerr To: [facility] - Clinical; Sent: 07/10/2023 08:34:02 EDT Show up: 07/10/2023 08:34:00 EDT Subject: Ambulatory Reminder Due Date/Time: 07/11/2023 08:33:00 EDT Pap, HPV and all STD tests were negative Results: Date Result Name Value Ref Range 07/03/2023 9:20 Chlamydia Negative (Negative - ) 07/03/2023 9:20 Gonococcus Negative (Negative - ) 07/03/2023 9:20 HPV Aptima Negative (Negative - ) 07/03/2023 9:20 PAP [id number] Note 07/03/2023 9:20 Trich vag by STEFFANIE Negative (Negative - ) Patient informed and voiced understanding. Normal [facility] PAP [id number] 07-09-2023 C. trachomatis rRNA STEFFANIE+probe Ql (Cvx) Negative Invalid Interpretation Code Negative [facility] Comment on above: Performed By: #### 1 [id number] #### [facility] [address] [place] [address] Cytology report Cyto stain Doc (Cvx/Vag) Note Invalid Interpretation Code [facility] Comment on above: Result Comment: TEST S RESULT FLAG UNITS REF RANGE LAB Clinician Provided Cytology Information Source.............Cervix No. of containers..01 ThinPrep Vial DIAGNOSIS: 01 NEGATIVE FOR INTRAEPITHELIAL LESION OR MALIGNANCY. Specimen adequacy: 01 Satisfactory for evaluation. Endocervical and/or squamous metaplastic cells (endocervical component) are present. Performed by: Tamera Lee, Salt Machine Operator ([facility]) . 01 Note: Note 01 The Pap smear is a screening test designed to aid in the detection of premalignant and malignant conditions of the uterine cervix. It is not a diagnostic procedure and should not be used as the sole means of detecting cervical cancer. Both false-positive and false-negative reports do occur. Test Methodology: Note 01 This liquid based ThinPrep(R) pap test was screened with the use of an image guided system. HPV Genotype Reflex Note 01 Criteria not met, HPV Genotype not performed. FLAG LEGEND: L-Low Normal,H-High Normal,LL-Alert Low,HH-Alert High <-Panic Low,>-Panic High,A-Abnormal,AA-Critical Abnormal Performed at: [address] [address] Callie Cardona MD, Performed By: #### 1 [id number] #### [facility] [address] [place] [address] HPV 16+18+31+33+35+39+45+ 51+52+56+58+59+66+68 DNA Probe+sig amp Ql (Cvx) Negative Invalid Interpretation Code Negative [facility] Comment on above: Result Comment: This nucleic acid amplification test detects fourteen high-risk HPV types (16,18,31,33,35,39,45,51,52,56,58,59,66,68) without differentiation. Performed By: #### 1 [id number] #### [facility] [address] [place] [address] N. gonorrhoeae rRNA STEFFANIE+probe Ql (Cvx) Negative Invalid Interpretation Code Negative [facility] Comment on above: Performed By: #### 1 [id number] #### [facility] [address] [place] [address] T. vaginalis rRNA STEFFANIE+probe Ql (Unsp spec) Negative Invalid Interpretation Code Negative [facility] Comment on above: Result Comment: Perf ormed at: [facility] [id number] MD Brendan Ledesma Performed at: = [facility] [id number] MD Brendan Ledesma Performed By: #### 1 [id number] #### [facility] [address] [place] [address] Outside Mammographyon 2023 Outside Mammography [id number]# 1.00TIFF Normal [facility] Reminderson 07-04-2023 Reminders - From: Shazia [...] 25.0 % (14.0 - 50.0) 07/03/2023 9:09 Storey Auto 7.4 % (4.0 - 14.0) 07/03/2023 9:09 Eos Auto 5.4 % (0.0 - 8.0) 07/03/2023 9:09 Basophil Auto 1.1 % (0.0 - 2.0) 07/03/2023 9:09 Neutro Absolute 5.0 E9/L (2.0 - 7.5) 07/03/2023 9:09 Lymph Absolute 2.1 E9/L (1.0 - 4.0) 07/03/2023 9:09 Storey Absolute 0.6 E9/L (0.2 - 1.0) 07/03/2023 [...] 5.60) Patient informed and voiced understanding. Normal [facility] CBC w/ Auto Diffon 4 Basophils/100 WBC (Bld) 1.1 % Normal 0.0-2.0 [facility] Comment on above: Performed By: #### 2 [id number] #### [facility] [address] [place] [address] Basophils/Leukocytes Auto (Bld) [Pure # fraction] 0.1 E9/L Normal 0.0-0.2 [facility] Comment on above: Performed By: #### 2 [id number] #### [facility] [address] [place] [address] Eosinophils (Bld) [#/Vol] 0.4 E9/L Normal 0.0-0.5 [facility] Comment on above: Performed By: #### 2 [id number] #### [facility] [address] [place] [address] Eosinophils/100 WBC (Bld) 5.4 % Normal 0.0-8.0 [facility] Comment on above: Performed By: #### 2 [id number] #### [facility] [address] [place] [address] Erythrocyte distribution width (RBC) [Ratio] 15.6 % High 10.9-14.2 [facility] Comment on above: Performed By: #### 2 [id number] #### [facility] [address] [place] [address] Hematocrit (Bld) [Volume fraction] 40.5 % Normal 34.0-46.0 [facility] Comment on above: Performed By: #### 2 [id number] #### [facility] [address] [place] [address] Hemoglobin (Bld) [Mass/Vol] 13.5 g/dL Normal 12.0-16.0 [facility] Comment on above: Performed By: #### 2 [id number] #### [facility] [address] [place] [address] Lymphocytes (Bld) [#/Vol] 2.1 E9/L Normal 1.0-4.0 [facility] Comment on above: Performed By: #### 2 [id number] #### [facility] [address] [place] [address] Lymphocytes/100 WBC (Bld) 25.0 % Normal 14.0-50.0 [facility] Comment on above: Performed By: #### 2 [id number] #### [facility] [address] [place] [address] MCH (RBC) [Entitic mass] 29.1 pg Normal 27.0-34.0 [facility] Comment on above: Performed By: #### 2 [id number] #### [facility] [address] [place] [address] MCHC (RBC) [Mass/Vol] 33.2 g/dL Normal 31.4-36.0 [facility] Comment on above: Performed By: #### 2 [id number] #### [facility] [address] [place] [address] MCV (RBC) [Entitic vol] 87.5 fL Normal 80.0-100.0 [facility] Comment on above: Performed By: #### 2 [id number] #### [facility] [address] [place] [address] Monocytes (Bld) [#/Vol] 0.6 E9/L Normal 0.2-1.0 [facility] Comment on above: Performed By: #### 2 753258 #### [facility] [address] [place] [address] Neutrophils (Bld) [#/Vol] 5.0 E9/L Normal 2.0-7.5 [facility] Comment on above: Performed By: #### 2 [id number] #### [facility] [address] [place] [address] Neutrophils/100 WBC (Bld) 61.1 % Normal 36.0-75.0 [facility] Comment on above: Performed By: #### 2 [id number] #### [facility] [address] [place] [address] Platelet mean volume (Bld) [Entitic vol] 8.1 fL Normal 6.4-10.8 [facility] Comment on above: Performed By: #### 2 [id number] #### [facility] [address] [place] [address] Platelets (Bld) [#/Vol] 338.0 E9/L Normal 150.0-500.0 [facility] Comment on above: Performed By: #### 2 549692 #### [facility] [address] [place] [address] RBC (Bld) [#/Vol] 4.6 E12/L Normal 4.3-5.9 [facility] Comment on above: Performed By: #### 2 [id number] #### [facility] [address] [place] [address] WBC corrected for nucl RBC Auto (Bld) [#/Vol] 8.2 E9/L Normal 4.0-11.0 [facility] Comment on above: Performed By: #### 2 430958 #### [facility] [address] [place] [address] CHEMISTRYOrdered By: SYSTEM SYSTEM on 07-03-2023 Albumin [...] 07-03-2023 Albumin [Mass/Vol] 4.2 g/dL Normal 3.3-5.0 [facility] Comment on above: Performed By: #### 2 [id number] #### [facility] [address] [place] [address] Albumin/Globulin (S) [Mass conc ratio] 1.3 Normal 1.1-2.2 [facility] Comment on above: Performed By: #### 2 [id number] #### [facility] [address] [place] [address] ALP [Catalytic activity/Vol] 96 Int._Unit/L Normal 21-98 [facility] Comment on above: Performed By: #### 2 [id number] #### [facility] [address] [place] [address] ALT No additional P-5'-P [Catalytic activity/Vol] 20 Int._Unit/L Normal 6-46 [facility] Comment on above: Performed By: #### 2 [id number] #### [facility] [address] [place] [address] Anion gap [Moles/Vol] 9 mmol/L Normal 6-16 [facility] Comment on above: Performed By: #### 2 [id number] #### [facility] [address] [place] [address] AST [Catalytic activity/Vol] 20 Int._Unit/L Normal 5-43 [facility] Comment on above: Performed By: #### 2 [id number] #### [facility] [address] [place] [address] Bilirubin [Mass/Vol] 0.4 mg/dL Normal 0.0-1.1 [facility] Comment on above: Performed By: #### 2 [id number] #### [facility] [address] [place] [address] Calcium [Mass/Vol] 9.2 mg/dL Normal 8.9-11.1 [facility] Comment on above: Performed By: #### 2 831556 #### [facility] [address] [place] [address] Chloride [Moles/Vol] 105 mmol/L Normal 101-111 [facility] Comment on above: Performed By: #### 2 356887 #### [facility] [address] [place] [address] CO2 [Moles/Vol] 26 mmol/L Normal 21-31 [facility] Comment on above: Performed By: #### 2 854382 #### [facility] [address] [place] [address] Creatinine [Mass/Vol] 0.7 mg/dL Normal 0.5-1.3 [facility] Comment on above: Performed By: #### 2 186644 #### [facility] [address] [place] [address] Globulin (S) [Mass/Vol] 3.3 g/dL Normal 1.4-4.0 [facility] Comment on above: Performed By: #### 2 397501 #### [facility] [address] [place] [address] Glucose [Mass/Vol] 81 mg/dL Normal 55-199 [facility] Comment on above: Performed By: #### 2 663221 #### [facility] [address] [place] [address] Potassium [Moles/Vol] 4.1 mmol/L Normal 3.5-5.3 [facility] Comment on above: Performed By: #### 2 370391 #### [facility] [address] [place] [address] Protein [Mass/Vol] 7.5 g/dL Normal 6.0-7.8 [facility] Comment on above: Performed By: #### 2 [id number] #### [facility] [address] [place] [address] Sodium [Moles/Vol] 136 mmol/L Normal 135-145 [facility] Comment on above: Performed By: #### 2 371835 #### [facility] [address] [place] [address] Urea nitrogen [Mass/Vol] 9 mg/dL Normal 5-21 [facility] Comment on above: Performed By: #### 2 430108 #### [facility] [address] [place] [address] Urea nitrogen/Creatinine [Mass ratio] 13 No Units Normal 10-20 [facility] Comment on above: Performed By: #### 2 [id number] #### [facility] [address] [place] [address] Family Medicine Office/Clini c Noteon 07-03-2023 Family Medicine Office/Clinic Note HPI Staff Vikki is a 52 year old female presenting for well woman Woman check up: Last pap: 2020 Last Jose F: 2020 Results of lap pap: normal but [...] masses. Pap obtained Neurologic: Grossly normal Skin: [place], moist, no tenting Lymph Nodes: No cervical adenopathy, nodes normal Mental Status: Alert and oriented x3. Normal mood and affect Assessment/Plan 1. Well woman exam (Z01.419: Encounter for gynecological examination (general) (routine) without abnormal findings) pt presents today for well woman exam. BSE discussed. mammogram done at [facility]. pap obtained without difficulty. pt scheduled for MRI of back next weeks Ordered: CBC w/ Auto Diff Comprehensive Metabolic Panel Lab Specimen Collect 09786 Lipid Panel PAP [id number] CT/GC/Trich HPV rflx Genotype PAP [id number] CT/GC/Trich HPV rflx Genotype Thyroid Stimulating Hormone 2. Screening for hyperlipidemia (Z13.220: Encounter for screening for lipoid disorders) lipid panel drawn Ordered: CBC w/ Auto Diff Comprehensive Metabolic Panel Lab Specimen Collect 40108 Lipid Panel PAP [id number] CT/GC/Trich HPV rflx Genotype Thyroid Stimulating Hormone 3. Screening for thyroid disorder (Z13.29: Encounter for screening for other suspected endocrine disorder) TSH drawn Ordered: CBC w/ Auto Diff Comprehensive Metabolic Panel Lab Specimen Collect [id number] Lipid Panel PAP [id number] CT/GC/Trich HPV rflx Genotype Thyroid Stimulating Hormone 4. Fatigue (R53.83: Other fatigue) pt c/o fatigue will check CBC and TSH Ordered: CBC w/ Auto Diff Comprehensive Metabolic Panel Lab Specimen Collect 56034 Lipid Panel PAP [id number] CT/GC/Trich HPV rflx Genotype Thyroid Stimulating Hormone 5. Change of, skin texture (R23.4: Changes in skin texture) area on left thigh is dark, hard and has changed in texture. will refer to SHELLY huizar Ordered: [facility] External Ambulatory Referral Lab Specimen Collect [id number]/GC/Trich HPV rflx Genotype 6. Urinary incontinence in female (R32: Unspecified urinary incontinence) c/o worsening urinary incontinence pt requesting referral to urogyn in [place]. Ordered: [facility] External Ambulatory Referral PAP [id number] CT/GC/Trich HPV rflx Genotype 7. Nasal polyps (J33.9: Nasal polyp, unspecified) pt had nasal polyps removed in 2019 and 2020. was supposed to follow up with ENT annually but has not done so since moving to [place], will refer to Dr. Dyer Ordered: [facility] External Ambulatory Referral PAP [id number] CT/GC/Trich HPV rflx Genotype 8. Screening for [...] blood pressure <80 mm Hg 3078F PAP [id number] CT/GC/Trich HPV rflx Genotype Systolic BP <130 mm Hg (Most Recent) 3074F Thyroid Stimulating Hormone 11. Class 1 obesity due to e (more content not included)... Normal [facility] Comment on above: Result Comment: Elec [...] 07-03-2023 Cholesterol [Mass/Vol] 143 mg/dL Normal 120-200 [facility] Comment on above: Performed By: #### 2 [id number] #### [facility] [address] [place] [address] Cholesterol in HDL [Mass/Vol] 60 mg/dL Invalid Interpretation Code [facility] Comment on above: Result Comment: '>= 60 LOW RISK' '<= 40 HIGH RISK' Performed By: #### 2 [id number] #### [facility] [address] [place] [address] Cholesterol in LDL [Mass/Vol] 58 mg/dL Normal <=129 [facility] Comment on above: Performed By: #### 2 [id number] #### [facility] [address] [place] [address] Cholesterol in VLDL [Mass/Vol] 31 mg/dL Normal 7-40 [facility] Comment on above: Performed By: #### 2 [id number] #### [facility] [address] [place] [address] Triglyceride [Mass/Vol] 157 mg/dL High <=149 [facility] Comment on above: Performed By: #### 2 [id number] #### [facility] [address] [place] [address] PAP [id number] 07-03-2023 PAP [id number] cancel Invalid Interpretation Code [facility] Comment on above: Performed By: #### 1 [id number] #### [facility] [address] [place] [address] Gynecological Body Site CERVIX Normal [facility] Comment on above: Performed By: #### 1 [id number] #### [facility] [address] [place] [address] Gynecological Body Site ENDOCERVIX Normal [facility] Comment on above: Performed By: #### 1 [id number] #### [facility] [address] [place] [address] Physician Referralon 024 Physician Referral [id number] #1.00TIFF Normal [facility] Physician Referral [id number] #1.00TIFF Normal [facility] Physician Referral [id number]#1.00TIFF Normal [facility] TSHon 07-03-2023 TSH Qn 2.05 m[IU]/L Normal 0.34-5.60 [facility] Comment on above: Performed By: #### 2 [id number] #### [facility] [address] [place] [address] eGFRon 07-03-2023 eGFR 103 mL/min/1.73 m2 Normal >=59 [facility] Comment on above: Order Comment: Order added by Discern Expert. Performed By: #### 1 [id number] #### [facility] [address] [place] [address] RAD - MISCon 06-25-2023 RAD - MISC [id number]# 1.00TIFF Normal [facility] RAD - MISC [id number] #1.00TIFF Normal [facility] Ambulatory Visit Summaryon 0 06-18-2023 Ambulatory Visit Summary POWERVIKKI L :1970 Visit Date:06/18/2023 Ambulatory Visit Instructions Your [...] What to do next Scheduled Follow-Up Appointments Saturday 8:20 AM EDT With: Shazia Kerr Where: [facility] Aminta Normal [facility] Family Medicine Office/Clini c Noteon 06-18-2023 Family Medicine Office/Clinic Note HPI Staff Vikki is a 52 [facility]: History: Any previous diagnosis: Gerd, Migraine, Vertigo, Allergic Rhinitis , Right side Tinnitus, Chronic Sinusitis History of seeing any specialist: ENT When was your last doctors visit: Last provider: new to area Any recent labs: nothing in the last year Health Maintenance UTD: Colonoscopy: 2 years ago, removed one polyup everything else was normal Mammogram: 2000 normal( would like order for jose f and go to [place]) Pelvic/Pap: 2000 normal EGD: had 2 of them had them done in [place] Current issues/complaints: Pain characteristics: Pain location: Right [...] day(s), # 21 tab(s), Refills(s) 0, Pharmacy: [facility]/pharmacy #[id number], 150, cm, 06/18/23 13:20:00 EDT, Height/Length Dosing, 75.8, kg, 06/18/23 13:20:00 EDT, Weight Dosing tramadol, 50 mg = 1 tab(s), Oral, q12hr, PRN for pain, # 30 tab(s), Refills(s) 0, Pharmacy: [facility]/pharmacy #[id number], 150, cm, 06/18/23 13:20:00 EDT, Height/Length Dosing, 75.8, kg, 06/18/23 13:20:00 EDT, Weight Dosing XR Hip 2-3 Views Right XR Spine Lumbosacral Minimum 4 Views 2. Right hip pain (M25.551: Pain in right hip) x ray order provided will go to [facility] Ordered: methylPREDNISolone, = 1 packet(s), Oral, As Directed, as directed on package labeling, X 6 day(s), # 21 tab(s), Refills(s) 0, Pharmacy: [facility]/pharmacy #[id number], 150, cm, 06/18/23 13:20:00 EDT, Height/Length Dosing, 75.8, kg, 06/18/23 13:20:00 EDT, Weight Dosing tramadol, 50 mg = 1 tab(s), Oral, q12hr, PRN for pain, # 30 tab(s), Refills(s) 0, Pharmacy: [facility]/pharmacy #[id number], 150, cm, 06/18/23 13:20:00 EDT, Height/Length [...] day(s), # 21 tab(s), Refills(s) 0, Pharmacy: [facility]/pharmacy #[id number], 150, cm, 06/18/23 13:20:00 EDT, Height/Length Dosing, 75.8, kg, 06/18/23 13:20:00 EDT, Weight Dosing tramadol, 50 mg = 1 tab(s), Oral, q12hr, PRN for pain, # 30 tab(s), Refills(s) 0, Pharmacy: [facility]/pharmacy #[id number], 150, cm, 06/18/23 13:20:00 EDT, Height/Length Dosing, 75.8, kg, 06/18/23 13:20:00 EDT, Weight Dosing MA Mamm Screen w/CAD if perf and 3D [place] 4. BMI 33.0-33.9,adult (Z68.33: Body mass index [BMI] 33.0-33.9, adult) BMI education complete Ordered: methylPREDNISolone, = 1 packet(s), Oral, As Directed, as directed on package labeling, X 6 day(s), # 21 tab(s), Refills(s) 0, Pharmacy: [facility]/pharmacy #[id number], 150, cm, 06/18/23 13:20:00 EDT, Height/Length Dosing, 75.8, kg, 06/18/23 13:20:00 EDT, Weight Dosing tramadol, 50 mg = 1 tab(s), Oral, q12hr, PRN for pain, (more content not included)... Normal [facility] Comment on above: Result Comment: Elec tronically Signed By: Patric BLANCO, Shazia Mcclain\.br\Date and Time Signed: 06/18/23 17:37 EDT Vital Signs Date Time Vital Sign Value Performing Clinician Tigist gray 08-29-2023 13:11-0400 Body height 149.86 cm MD Antoine Corral Work Phone: [facility] 08-29-2023 13:11-0400 Body mass index (BMI) [Ratio] 34.3 kg/m2 MD Antoine Corral Work Phone: [facility] 08-29-2023 13:11-0400 Body weight 77.11 kg MD Antoine Corral Work Phone: [facility] Encounters Encounter Date Encounter Type Care Provider Facility Start: 08-29-2023 End: 08-29-2023 ambulatory MD Antoine Corral Work Phone: [facility] Work Phone: Start: 08-29-2023 End: 08-29-2023 Patient encounter procedure MD Antoine Corral Work Phone: [facility] Work Phone: Start: 08-28-2023 End: 08-28-2023 Patient encounter procedure MD Antoine Corral Work Phone: [facility] Work Phone: Start: 08-28-2023 End: 08-28-2023 ambulatory MD Antoine Corral Work Phone: [facility] Work Phone: Start: 07-10-2023 End: 07-10-2023 ambulatory DOROTHY DYER Not Available Start: 07-03-2023 End: 07-04-2023 ambulatory Shazia L Patric Facility: [facility] [place] Start: 07-03-2023 End: 07-03-2023 Lab Drop off Shazia L Patric [facility] Start: 06-18-2023 End: 06-19-2023 ambulatory ADULT AND PEDIATRIC NEUROLOGIST Shazia L Patric Facility:[facility] [place] Start: 06-17-2023 ambulatory ADULT AND PEDIATRIC NEUROLOGIST Shazia L Patric Facil ity:[facility] [place] Procedures Date Procedure Procedure Detail Performing Clinician Start: 08-28-2023 X-ray of lumbar spin e, six views including bending views MD Antoine Corral Work Phone: [facility] Shazia Patric Comment on above: 2008 Surgery (qualifier value) Margareth di Patric Surgical procedure Shazia Schw ab Payers Date Payer Category Payer Private Health Insurance [id number] 1970 Unknown [id number] [id number] [id number] 1970 Unknown [id number] 2.16.8 [id number] 1970 Unknown [id number] 2.16.8 [id number] 1970 Unknown [id number] 2.16.8 [id number] 1970 Unknown [id number] 2.16.84 [id number] 1970 Unknown [id number] 2.16.84 [id number] Social History Date Type Detail Facility Start: 04-17-2023 End: 07-03-2023 Tobacco smoking status Never smoked tobacco (finding) [facility] Tobacco smoking status Never [place] Sex Assigned At Female [facility] Start: 1970 Sex Assigned At Female F [facility] Evaluation + Plan note 07-03-2023 Note Date & Type Note Facility 07-03-2023 Evaluation + Plan note Diagnostic Tests PendingPAP [id number] CT/GC/Trich HPV rflx Genotype 07/03/23 [facility] Evaluation note Note Date & Type Note Facility Evaluation note No assessment information availa [facility] Work Phone: Hospital course Narrative Note Date & Type Note Facility Hospital course Narrative No data available for this section [facility] Hospital Discharge instructions Note Date & Type Note Facility Hospital Discharge instructions No data available for this section [facility] Progress note Note Date & Type Note Facility Progress note No data available for this section [facility] Summary Purpose Family History Relationship Condition Age at Onset Recorded Date/T luiza father Diabetes mellitus Unknown mother Gastroesophageal reflux disease Unknown No Family History Records Found Advance Directives No Advanced Directives Records Found Advance Directive Response Recorded Date/ Time Advance Directives No July 21 12:43pm Advance Directive Response Recorded Date/ Time Advance Directives No April 16 2:01pm Chief Complaint and Reason for Visit Chief Complaint m54.50 Chief Complaint m54.50 Low back pain with right side sciatica Additional Source Comments Patient Care team informatio n (unrecognized section and content) Team Status: Active Member Role Status Dates Antoine Corral MD Primary Care Provider Active Team Status: Inactive Member Role Status Dates Antoine Corral MD Primary Care Provider Active Start: August 28, 2023 End: August 28, 2023 Justus Toscano MD Attending Provider Active Star t: August 28, 2023 End: August 28, 2023 Team Status: Inactive Member Role Status Dates Antoine Corral MD Primary Care Provider Active Start: August 29, 2023 End: August 29, 2023 Justus Toscano MD Attending Provider Active Star t: August 29, 2023 End: August 29, 2023 INFORMATION SOURCE (unrecogn ized section and content) DATE CREATED AUTHOR 07/05/2023 [facility] DATE CREATED AUTHOR AUTHOR'S ORGANIZ ATION 07/06/2023 [facility] DATE CREATED AUTHOR AUTHOR'S ORGANIZ ATION 07/10/2023 [facility] DATE CREATED AUTHOR AUTHOR'S ORGANIZ ATION 07/11/2023 [facility] DATE CREATED AUTHOR AUTHOR'S ORGANIZ ATION 09/01/2023 [facility] DATE CREATED AUTHOR AUTHOR'S ORGANIZ ATION 09/01/2023 [facility] Goals (unrecognized section and content) Goals may be documented in a n alternate section FOR RECORDS PERTAINING TO PATIENTS WHO ARE [...] BE BASED ON THE PRIMARY CLINICAL RECORDS. [employer] provides no warranty or guarantee of the accuracy or completeness of information in this document.
== END 2023-09-10 13:21 | disposition home or self-care (01) ==
LOC: PM 13:20
PROVIDERS: PCP Family Medicine; Visit Provider Anesthesiology Pain Medicine
DX: M25.551 Pain in right hip (principal); M70.61 Trochanteric bursitis, right hip
CPT/HCPCS: G0463

== ENCOUNTER 2023-09-17 11:51 | Outpatient (OUT) | payer MEDICAID, SELFPAY ==
--- NOTE | 2023-09-17 | CONS_ITS ---
PROCEDURE DATE: 09/17/2023 PROCEDURE: Right greater trochanteric bursa injection. PREOPERATIVE DIAGNOSIS: Pain secondary to right greater trochanteric bursitis. POSTOPERATIVE DIAGNOSIS: Pain secondary to right greater trochanteric bursitis. SOLUTION USED FOR INJECTION: 2 mL of 2% lidocaine, 2 mL of 0.25% Marcaine and 22 mg of Kenalog, total of 5 mL, and 5 mL used for the injection in divided doses. IMMEDIATE COMPLICATIONS: None. PROCEDURE: After informed consent was obtained from the patient, placed in the left lateral decubitus position. Skin overlying the area was prepped with alcohol. A 25 gauge, 1 ?? needle inserted into the substance of the right greater trochanter at a point just proximal to the insertion of the right gluteus medius. Needle tip advanced until it was encountered. We deposited a total of 5 mL of solution in two locations within the greater trochanteric bursa. Post procedure the needle was removed. Patient reports a dramatic reduction in pain symptoms post procedurally. Discharged after meeting criteria. DAWNA
--- OUTSIDE RECORDS SUMMARY | 2023-09-17 12:10 | XMS_ITS | CCD ---
Author Organization [facility] Care Team Providers Care Community Support Associate Name Role Phone Shazia Coker Primary Care Physician Patric Shazia L Attending Unavailable Patric, CARDIOLOGY NURSE PRACTITIONER Shazia L Attending Unavailable Patric, CARDIOLOGY NURSE PRACTITIONER Shazia L Admitting Unavailable Patric, CARDIOLOGY NURSE PRACTITIONER Shazia L Admitting Unavailable Patric, CARDIOLOGY NURSE PRACTITIONER Shazia L Attending Unavailable Patric, CARDIOLOGY NURSE PRACTITIONER Shazia L Attending Unavailable Patric, CARDIOLOGY NURSE PRACTITIONER Shazia L Attending Unavailable Patric, FRANCIS Shazia L Attending Unavailable MD Antoine Corral Primary Care Provider [phone] MD Justus Toscano Attending Provider DOROTHY DYER Attending Unavailable PATRIC, SHAZIA Referring Unavailable GERALDINE MOISE Attending Unavailable PATRIC, SHAZIA Referring Unavailable Justus Toscano Attending Unavailable Justus Toscano Admitting Unavailable Antoine Corral Primary Care Unavailable Allergies Allergy Classification Reported Allergen(s) Allergy Type Date of Onset Reaction(s) Facility (2 sources) Doxycycline; Translations: [doxycycline] Drug Allergy Dizziness (finding) [facility] (4 sources) methazolAMIDE; Translations: [methazolamide] Drug Allergy 4 Weal (disorder) [facility] (2 sources) oxyCODONE; Translations: [oxycodone] Drug Allergy Loss of consciousness (finding) [facility] (2 sources) Acetaminophen / oxyCODONE Drug Allergy 4 Anaphylaxis [facility] (2 sources) doxyclin Allergy to substance 4 Dizziness [facility] Medications Current Medications Medication Drug Class(es) Dates [...] pain, # 30 tab(s), Refills(s) 0, Pharmacy: [facility]/pharmacy #[id number], 150, cm, 06/18/23 13:20:00 EDT, [...] 08-28-2023 XR lumbar spine 6V w bending [facility] [place] [address] XRay Report Signed Patient: Vikki Power MR#: [id number] 02 : 1970 Acct:[id number] Age/Sex: 52 / F ADM Date: 08/28/23 Loc: XD Room: Type: [facility] Attending Dr: Justus Toscano MD Copies to: Justus Toscano MD Ordering Provider: Jusuts Toscano MD Date of Service: 08/28/23 XR/XR [...] Brandi Weinstein M.D.08/28/2023 4:52 PM Dictation Location: [place] [address] Transcribed By: [facility] 08/28/23 1652 Dictated By: Brandi Weinstein MD 08/28/23 1644 Signed By: 08/28/23 1652 Normal [facility] Physician Referralon 024 Physician Referral [id number] 41#1.00TIFF Normal [facility] Consultation Noteon 07-10-19 Consultation Note [id number] #1.00TIFF Normal [facility] RAD - MRI Reporton RAD - MRI Report [id number] #1.00TIFF Normal [facility] Reminderson 07-10-2023 Reminders - From: Shazia [...] ) Patient informed and voiced understanding. Normal [facility] PAP [id number] 07-09-2023 C. trachomatis rRNA STEFFANIE+probe Ql (Cvx) Negative Invalid Interpretation Code Negative [facility] Comment on above: Performed By: #### 1 [id number] #### [facility] [address] [place] [address] Cytology report Cyto stain Doc (Cvx/Vag) Note Invalid Interpretation Code [facility] Comment on above: Result Comment: TEST S RESULT FLAG UNITS REF RANGE LAB Clinician Provided Cytology Information Source.............Cervix No. of containers..01 ThinPrep Vial DIAGNOSIS: 01 NEGATIVE FOR INTRAEPITHELIAL LESION OR MALIGNANCY. Specimen adequacy: 01 Satisfactory for evaluation. Endocervical and/or squamous metaplastic cells (endocervical component) are present. Performed by: Tamera Lee, Retention Representative ([facility]) . 01 Note: Note 01 The [...] <-Panic Low,>-Panic High,A-Abnormal,AA-Critical Abnormal Performed at: [address] [address] Callie Cardona MD, Performed By: #### 1 [id number] #### [facility] [address] [place] [address] HPV 16+18+31+33+35+39+45+ 51+52+56+58+59+66+68 DNA Probe+sig amp Ql (Cvx) Negative Invalid Interpretation Code Negative [facility] Comment on above: Result Comment: This nucleic acid amplification test detects fourteen high-risk HPV types (16,18,31,33,35,39,45,51,52,56,58,59,66,68) without differentiation. Performed By: #### 1 [id number] #### [facility] [address] [place] [address] N. gonorrhoeae rRNA STEFFANIE+probe Ql (Cvx) Negative Invalid Interpretation Code Negative [facility] Comment on above: Performed By: #### 1 [id number] #### [facility] [address] [place] [address] T. vaginalis rRNA STEFFANIE+probe Ql (Unsp spec) Negative Invalid Interpretation Code Negative [facility] Comment on above: Result Comment: Perf ormed at: [facility] [id number] MD Brendan Ledesma Performed at: = [facility] [id number] MD Brendan Ledesma Performed By: #### 1 [id number] #### [facility] [address] [place] [address] Outside Mammographyon 2023 Outside Mammography [id number]# 1.00TIFF Normal [facility] Reminderson 07-04-2023 Reminders - From: Shazia [...] 25.0 % (14.0 - 50.0) 07/03/2023 9:09 Tompkins Auto 7.4 % (4.0 - 14.0) 07/03/2023 9:09 Eos Auto 5.4 % (0.0 - 8.0) 07/03/2023 9:09 Basophil Auto 1.1 % (0.0 - 2.0) 07/03/2023 9:09 Neutro Absolute 5.0 E9/L (2.0 - 7.5) 07/03/2023 9:09 Lymph Absolute 2.1 E9/L (1.0 - 4.0) 07/03/2023 9:09 Tompkins Absolute 0.6 E9/L (0.2 - 1.0) 07/03/2023 [...] 5.60) Patient informed and voiced understanding. Normal [facility] CBC w/ Auto Diffon 4 Basophils/100 WBC (Bld) 1.1 % Normal 0.0-2.0 [facility] Comment on above: Performed By: #### 2 [id number] #### [facility] [address] [place] [address] Basophils/Leukocytes Auto (Bld) [Pure # fraction] 0.1 E9/L Normal 0.0-0.2 [facility] Comment on above: Performed By: #### 2 [id number] #### [facility] [address] [place] [address] Eosinophils (Bld) [#/Vol] 0.4 E9/L Normal 0.0-0.5 [facility] Comment on above: Performed By: #### 2 [id number] #### [facility] [address] [place] [address] Eosinophils/100 WBC (Bld) 5.4 % Normal 0.0-8.0 [facility] Comment on above: Performed By: #### 2 [id number] #### [facility] [address] [place] [address] Erythrocyte distribution width (RBC) [Ratio] 15.6 % High 10.9-14.2 [facility] Comment on above: Performed By: #### 2 [id number] #### [facility] [address] [place] [address] Hematocrit (Bld) [Volume fraction] 40.5 % Normal 34.0-46.0 [facility] Comment on above: Performed By: #### 2 [id number] #### [facility] [address] [place] [address] Hemoglobin (Bld) [Mass/Vol] 13.5 g/dL Normal 12.0-16.0 [facility] Comment on above: Performed By: #### 2 [id number] #### [facility] [address] [place] [address] Lymphocytes (Bld) [#/Vol] 2.1 E9/L Normal 1.0-4.0 [facility] Comment on above: Performed By: #### 2 670250 #### [facility] [address] [place] [address] Lymphocytes/100 WBC (Bld) 25.0 % Normal 14.0-50.0 [facility] Comment on above: Performed By: #### 2 [id number] #### [facility] [address] [place] [address] MCH (RBC) [Entitic mass] 29.1 pg Normal 27.0-34.0 [facility] Comment on above: Performed By: #### 2 [id number] #### [facility] [address] [place] [address] MCHC (RBC) [Mass/Vol] 33.2 g/dL Normal 31.4-36.0 [facility] Comment on above: Performed By: #### 2 [id number] #### [facility] [address] [place] [address] MCV (RBC) [Entitic vol] 87.5 fL Normal 80.0-100.0 [facility] Comment on above: Performed By: #### 2 996460 #### [facility] [address] [place] [address] Monocytes (Bld) [#/Vol] 0.6 E9/L Normal 0.2-1.0 [facility] Comment on above: Performed By: #### 2 749043 #### [facility] [address] [place] [address] Neutrophils (Bld) [#/Vol] 5.0 E9/L Normal 2.0-7.5 [facility] Comment on above: Performed By: #### 2 146660 #### [facility] [address] [place] [address] Neutrophils/100 WBC (Bld) 61.1 % Normal 36.0-75.0 [facility] Comment on above: Performed By: #### 2 544500 #### [facility] [address] [place] [address] Platelet mean volume (Bld) [Entitic vol] 8.1 fL Normal 6.4-10.8 [facility] Comment on above: Performed By: #### 2 [id number] #### [facility] [address] [place] [address] Platelets (Bld) [#/Vol] 338.0 E9/L Normal 150.0-500.0 [facility] Comment on above: Performed By: #### 2 046150 #### [facility] [address] [place] [address] RBC (Bld) [#/Vol] 4.6 E12/L Normal 4.3-5.9 [facility] Comment on above: Performed By: #### 2 765171 #### [facility] [address] [place] [address] WBC corrected for nucl RBC Auto (Bld) [#/Vol] 8.2 E9/L Normal 4.0-11.0 [facility] Comment on above: Performed By: #### 2 913087 #### [facility] [address] [place] [address] CHEMISTRYOrdered By: SYSTEM SYSTEM on 07-03-2023 Albumin [...] 07-03-2023 Albumin [Mass/Vol] 4.2 g/dL Normal 3.3-5.0 [facility] Comment on above: Performed By: #### 2 955676 #### [facility] [address] [place] [address] Albumin/Globulin (S) [Mass conc ratio] 1.3 Normal 1.1-2.2 [facility] Comment on above: Performed By: #### 2 525702 #### [facility] [address] [place] [address] ALP [Catalytic activity/Vol] 96 Int._Unit/L Normal 21-98 [facility] Comment on above: Performed By: #### 2 459208 #### [facility] [address] [place] [address] ALT No additional P-5'-P [Catalytic activity/Vol] 20 Int._Unit/L Normal 6-46 [facility] Comment on above: Performed By: #### 2 144626 #### [facility] [address] [place] [address] Anion gap [Moles/Vol] 9 mmol/L Normal 6-16 [facility] Comment on above: Performed By: #### 2 151626 #### [facility] [address] [place] [address] AST [Catalytic activity/Vol] 20 Int._Unit/L Normal 5-43 [facility] Comment on above: Performed By: #### 2 605453 #### [facility] [address] [place] [address] Bilirubin [Mass/Vol] 0.4 mg/dL Normal 0.0-1.1 [facility] Comment on above: Performed By: #### 2 724306 #### [facility] [address] [place] [address] Calcium [Mass/Vol] 9.2 mg/dL Normal 8.9-11.1 [facility] Comment on above: Performed By: #### 2 595348 #### [facility] [address] [place] [address] Chloride [Moles/Vol] 105 mmol/L Normal 101-111 [facility] Comment on above: Performed By: #### 2 257551 #### [facility] [address] [place] [address] CO2 [Moles/Vol] 26 mmol/L Normal 21-31 [facility] Comment on above: Performed By: #### 2 602493 #### [facility] [address] [place] [address] Creatinine [Mass/Vol] 0.7 mg/dL Normal 0.5-1.3 [facility] Comment on above: Performed By: #### 2 758710 #### [facility] [address] [place] [address] Globulin (S) [Mass/Vol] 3.3 g/dL Normal 1.4-4.0 [facility] Comment on above: Performed By: #### 2 273020 #### [facility] [address] [place] [address] Glucose [Mass/Vol] 81 mg/dL Normal 55-199 [facility] Comment on above: Performed By: #### 2 704077 #### [facility] [address] [place] [address] Potassium [Moles/Vol] 4.1 mmol/L Normal 3.5-5.3 [facility] Comment on above: Performed By: #### 2 967331 #### [facility] [address] [place] [address] Protein [Mass/Vol] 7.5 g/dL Normal 6.0-7.8 [facility] Comment on above: Performed By: #### 2 274665 #### [facility] [address] [place] [address] Sodium [Moles/Vol] 136 mmol/L Normal 135-145 [facility] Comment on above: Performed By: #### 2 493708 #### [facility] [address] [place] [address] Urea nitrogen [Mass/Vol] 9 mg/dL Normal 5-21 [facility] Comment on above: Performed By: #### 2 769507 #### [facility] [address] [place] [address] Urea nitrogen/Creatinine [Mass ratio] 13 No Units Normal 10-20 [facility] Comment on above: Performed By: #### 2 162867 #### [facility] [address] [place] [address] Family Medicine Office/Clini c Noteon 07-03-2023 Family [...] masses. Pap obtained Neurologic: Grossly normal Skin: Rennert, moist, no tenting Lymph Nodes: No cervical adenopathy, nodes normal Mental Status: Alert and oriented x3. Normal mood and affect Assessment/Plan 1. Well woman exam (Z01.419: Encounter for gynecological examination (general) (routine) without abnormal findings) pt presents today for well woman exam. BSE discussed. mammogram done at [facility]. pap obtained without difficulty. pt scheduled for MRI of back next weeks Ordered: CBC w/ Auto Diff Comprehensive Metabolic Panel Lab Specimen Collect [id number] Lipid Panel [address]AP 726129 CT/GC/Trich HPV rflx Genotype PAP [id number] CT/GC/Trich HPV rflx Genotype Thyroid Stimulating Hormone 2. Screening for hyperlipidemia (Z13.220: Encounter for screening for lipoid disorders) lipid panel drawn Ordered: CBC w/ Auto Diff Comprehensive Metabolic Panel Lab Specimen Collect 16353 Lipid Panel PAP 814351 CT/GC/Trich HPV rflx Genotype Thyroid Stimulating Hormone 3. Screening for thyroid disorder (Z13.29: Encounter for screening for other suspected endocrine disorder) TSH drawn Ordered: CBC w/ Auto Diff Comprehensive Metabolic Panel Lab Specimen Collect 75220 Lipid Panel PAP [id number] CT/GC/Trich HPV rflx Genotype Thyroid Stimulating Hormone 4. Fatigue (R53.83: Other fatigue) pt c/o fatigue will check CBC and TSH Ordered: CBC w/ Auto Diff Comprehensive Metabolic Panel Lab Specimen Collect 73117 Lipid Panel PAP [id number] CT/GC/Trich HPV rflx Genotype Thyroid Stimulating Hormone 5. Change of, skin texture (R23.4: Changes in skin texture) area on left thigh is dark, hard and has changed in texture. will refer to SHELLY huizar Ordered: [facility] [place] Lab Specimen Collect [address]/GC/Trich HPV rflx Genotype 6. Urinary incontinence in female (R32: Unspecified urinary incontinence) c/o worsening urinary incontinence pt requesting referral to urogyn in [place]. Ordered: [facility] [place] Ambulatory Referral PAP [id number] CT/GC/Trich HPV rflx Genotype 7. Nasal polyps (J33.9: Nasal polyp, unspecified) pt had nasal polyps removed in 2019 and 2020. was supposed to follow up with ENT annually but has not done so since moving to [place], will refer to Dr. Dyer Ordered: [facility] [place] Ambulatory Referral PAP 634807 CT/GC/Trich HPV rflx Genotype 8. Screening for [...] blood pressure <80 mm Hg 3078F PAP 228184 CT/GC/Trich HPV rflx Genotype Systolic BP <130 mm Hg (Most Recent) 3074F Thyroid Stimulating Hormone 11. Class 1 obesity due to e (more content not included)... Normal [facility] Comment on above: Result Comment: Elec [...] 07-03-2023 Cholesterol [Mass/Vol] 143 mg/dL Normal 120-200 [facility] Comment on above: Performed By: #### 2 607134 #### [facility] [address] [place] [address] Cholesterol in HDL [Mass/Vol] 60 mg/dL Invalid Interpretation Code [facility] Comment on above: Result Comment: '>= 60 LOW RISK' '<= 40 HIGH RISK' Performed By: #### 2 026597 #### [facility] [address] [place] [address] Cholesterol in LDL [Mass/Vol] 58 mg/dL Normal <=129 [facility] Comment on above: Performed By: #### 2 245249 #### [facility] [address] [place] [address] Cholesterol in VLDL [Mass/Vol] 31 mg/dL Normal 7-40 [facility] Comment on above: Performed By: #### 2 569758 #### [facility] [address] [place] [address] Triglyceride [Mass/Vol] 157 mg/dL High <=149 [facility] Comment on above: Performed By: #### 2 838482 #### [facility] [address] [place] [address] PAP [id number] 07-03-2023 PAP [id number] cancel Invalid Interpretation Code [facility] Comment on above: Performed By: #### 1 [id number] #### [facility] [address] [place] [address] Gynecological Body Site CERVIX Normal [facility] Comment on above: Performed By: #### 1 [id number] #### [facility] [address] [place] [address] Gynecological Body Site ENDOCERVIX Normal [facility] Comment on above: Performed By: #### 1 [id number] #### [facility] [address] [place] [address] Physician Referralon 024 Physician Referral [id number] #1.00TIFF Normal [facility] Physician Referral [id number] #1.00TIFF Normal [facility] Physician Referral [id number] 9#1.00TIFF Normal [facility] TSHon 07-03-2023 TSH Qn 2.05 m[IU]/L Normal 0.34-5.60 [facility] Comment on above: Performed By: #### 2 553737 #### [facility] [address] [place] [address] eGFRon 07-03-2023 eGFR 103 mL/min/1.73 m2 Normal >=59 [facility] Comment on above: Order Comment: Order added by Discern Expert. Performed By: #### 1 [id number] #### [facility] [address] [place] [address] RAD - MISCon 06-25-2023 RAD - MISC [id number]# 1.00TIFF Normal [facility] RAD - MISC [id number] #1.00TIFF Normal [facility] Ambulatory Visit Summaryon 0 06-18-2023 Ambulatory [...] physician. Your Care Team Attending Physician - Shaiza Kerr Primary Care Physician - Shazia Kerr This Is Your Medications List loratadine Procedures Performed Surgery, Surgery, Surgery. Discharge Vitals Heart Rate (Peripheral) 80 Respiratory Rate 18 Blood Pressure 124/76 Height 150 cm Height 59 in Weight 75.75 kg Weight 166.65 lb BMI 33.67 What to do next Scheduled Follow-Up Appointments Saturday 8:20 AM EDT With: Shazia Kerr Where: [facility] Family Medicine Plain Normal [facility] Family Medicine Office/Clini c Noteon 06-18-2023 Family Medicine Office/Clinic Note HPI Staff Vikki is a 52 year old female presenting to [facility] Establish Care: History: Any previous [...] order for jose f and go to [facility]) Pelvic/Pap: 2000 normal EGD: had 2 of them [place] Current issues/complaints: Pain characteristics: Pain location: Right [...] day(s), # 21 tab(s), Refills(s) 0, Pharmacy: [facility]/pharmacy #[id number], 150, cm, 06/18/23 13:20:00 EDT, Height/Length Dosing, 75.8, kg, 06/18/23 13:20:00 EDT, Weight Dosing tramadol, 50 mg = 1 tab(s), Oral, q12hr, PRN for pain, # 30 tab(s), Refills(s) 0, Pharmacy: [facility]/pharmacy #[id number], 150, cm, 06/18/23 13:20:00 EDT, Height/Length Dosing, 75.8, kg, 06/18/23 13:20:00 EDT, Weight Dosing XR Hip 2-3 Views Right XR Spine Lumbosacral Minimum 4 Views 2. Right hip pain (M25.551: Pain in right hip) x ray order provided will go to [facility] Ordered: methylPREDNISolone, = 1 packet(s), Oral, As Directed, as directed on package labeling, X 6 day(s), # 21 tab(s), Refills(s) 0, Pharmacy: [facility]/pharmacy #[id number], 150, cm, 06/18/23 13:20:00 EDT, Height/Length Dosing, 75.8, kg, 06/18/23 13:20:00 EDT, Weight Dosing tramadol, 50 mg = 1 tab(s), Oral, q12hr, PRN for pain, # 30 tab(s), Refills(s) 0, Pharmacy: [facility]/pharmacy #[id number], 150, cm, 06/18/23 13:20:00 EDT, [...] day(s), # 21 tab(s), Refills(s) 0, Pharmacy: [facility]/pharmacy #[id number], 150, cm, 06/18/23 13:20:00 EDT, Height/Length Dosing, 75.8, kg, 06/18/23 13:20:00 EDT, Weight Dosing tramadol, 50 mg = 1 tab(s), Oral, q12hr, PRN for pain, # 30 tab(s), Refills(s) 0, Pharmacy: [facility]/pharmacy #[id number], 150, cm, 06/18/23 13:20:00 EDT, [...] for pain, (more content not included)... Normal [facility] Comment on above: Result Comment: Elec tronically Signed By: Patric BLANCO, Shazia Mcclain\.br\Date and Time Signed: 06/18/23 17:37 EDT Vital Signs Date Time Vital Sign Value Performing Clinician Tigist gray 08-29-2023 13:11-0400 Body height 149.86 cm MD Antoine Corral Work Phone: [facility] 08-29-2023 13:11-0400 Body mass index (BMI) [Ratio] 34.3 kg/m2 MD Antoine Corral Work Phone: [facility] 08-29-2023 13:11-0400 Body weight 77.11 kg MD Antoine Corral Work Phone: [facility] Encounters Encounter Date Encounter Type Care Provider Facility Start: 08-29-2023 End: 08-29-2023 ambulatory MD Antoine Corral Work Phone: [facility] Work Phone: Start: 08-29-2023 End: 08-29-2023 Patient encounter procedure MD Antoine Corral Work Phone: [facility] Work Phone: Start: 08-28-2023 End: 08-28-2023 Patient encounter procedure MD Antoine Corral [facility] Phone[facility] Work Phone: Start: 08-28-2023 End: 08-28-2023 ambulatory MD Antoine Corral Work Phone: [facility] Work Phone: Start: 07-10-2023 End: 07-10-2023 ambulatory DOROTHY DYER Not Available Start: 07-03-2023 End: 07-04-2023 ambulatory Shazia L Patric Facility: [facility] [place] [facility] Start: 07-03-2023 End: 07-03-2023 Lab Drop off Shazia L Patric [facility] Start: 06-18-2023 End: 06-19-2023 ambulatory CARDIOLOGY NURSE PRACTITIONER Shazia L Patric Facility:[facility] [place] [facility] Start: 06-17-2023 ambulatory CARDIOLOGY NURSE PRACTITIONER Shazia L Patric Facil ity:[facility] Aminta Procedures Date Procedure Procedure Detail Performing Clinician Start: 08-28-2023 X-ray of lumbar spin e, six views including bending views MD Antoine Corral Work Phone: [facility] Shazia Patric Comment on above: 2008 Surgery (qualifier value) Margareth di Patric Surgical procedure Shazia Schw ab Payers Date Payer Category Payer Private Health Insurance [id number] 1970 Unknown [id number] 2.16.8 [id number] 1970 Unknown [id number] 2.16.8 [id number] 1970 Unknown [id number] 2.16.8 [id number] 1970 Unknown [id number] 2.16.8 [id number] 1970 Unknown [id number] 2.16.84 [id number] 1970 Unknown [id number] 2.16.84 [id number] Social History Date Type Detail Facility Start: 04-17-2023 End: 07-03-2023 Tobacco smoking status Never smoked tobacco (finding) [facility] Tobacco smoking status Never [facility] Sex Assigned At Female [facility] Start: 1970 Sex Assigned At Female [facility] Evaluation + Plan note 07-03-2023 Note Date & Type Note Facility 07-03-2023 Evaluation + Plan note Diagnostic Tests PendingPAP [id number] CT/GC/Trich HPV rflx Genotype 07/03/23 [facility] Evaluation note Note Date & Type Note Facility Evaluation note No assessment information availa [facility] Work Phone: Hospital course Narrative Note Date [...] [facility] Summary Purpose Family History Relationship [...] CREATED AUTHOR AUTHOR'S ORGANIZ ATION 07/06/2023 [facility] DATE CREATED AUTHOR AUTHOR'S ORGANIZ ATION 07/10/2023 [facility] [facility] DATE CREATED AUTHOR AUTHOR'S ORGANIZ ATION 07/11/2023 [facility] DATE CREATED AUTHOR AUTHOR'S ORGANIZ ATION 09/01/2023 [facility] DATE CREATED AUTHOR AUTHOR'S ORGANIZ ATION 09/01/2023 [facility] Goals (unrecognized section and content) [...] BE BASED ON THE PRIMARY CLINICAL RECORDS. [employer] provides no warranty or guarantee of the accuracy or completeness of information in this document.
== END 2023-09-17 11:52 | disposition home or self-care (01) ==
LOC: PM 11:52
PROVIDERS: PCP Family Medicine; Visit Provider Anesthesiology Pain Medicine
DX: M70.61 Trochanteric bursitis, right hip (principal)
CPT/HCPCS: 20610; J0665; J3301

== ENCOUNTER 2023-11-12 13:59 | Outpatient (OUT) | payer MEDICAID, SELFPAY ==
--- NOTE | 2023-11-12 14:07 | US_ITS ---
[address] [address] Patient Name: VIKKI YEH MRN: [id number] date: 1970 Sex: F Assigned Patient Location: US Current Patient Location: US Accession/Order Number: [id number] Exam Date: 11/12/2023 14:08 Report Date: 11/12/2023 14:41 At the request of: NIR SPIVEY Procedure: US venous doppler LE RT EXAM: US venous doppler LE RT HISTORY: Pain Right Leg, Swelling Right Leg COMPARISON: None. TECHNIQUE: Grayscale, color and Doppler FINDINGS: Region: Right leg Thrombus: None Flow: Normal Augmentation: Normal Compressibility: Normal Other: In the region of the patient's palpable abnormality a patent normal-sized vein is observed measuring 1.7 mm US/US venous doppler LE RT IMPRESSION: No deep or superficial vein thrombus observed Electronically authenticated by: LYNN WILCOX Date: 11/12/2023 14:41
--- OUTSIDE RECORDS SUMMARY | 2023-11-12 14:19 | XMS_ITS | CCD ---
Author Organization [facility] Care Team Providers Care Processing Operator Name Role Phone Shazia Coker Primary Care Physician [phone] Margareth Cokerdi Sarahi Attending Unavailable Patric, TAX STAFF ACCOUNTANT Shazia L Attending Unavailable Patric, TAX STAFF ACCOUNTANT Shazia L Admitting Unavailable Patric, TAX STAFF ACCOUNTANT Shazia L Admitting Unavailable Patric, TAX STAFF ACCOUNTANT Shazia L Attending Unavailable Patric, TAX STAFF ACCOUNTANTAdriana Mcclain Attending Unavailable Aptric, FRANCIS Mcclain Attending Unavailable Patric, FRANCIS Shazia L Attending Unavailable MD Antoine Corral Primary Care Provider MD Justus Toscano Attending Provider Justus Toscano Attending Unavailable Justus Toscaon Admitting Unavailable Antoine Corral Primary Care Unavailable DOROTHY BAUTISTA Attending Unavailable PATRIC, SHAZIA Referring Unavailable GERALDINE MOISE Attending Unavailable PATRIC, SHAZIA Referring Unavailable ELISEO BRYAN Attending Unavailable Allergies Allergy Classification Reported Allergen(s) Allergy Type Date of Onset Reaction(s) Facility (2 sources) Doxycycline; Translations: [doxycycline] Drug Allergy Dizziness (finding) [facility] (4 sources) methazolAMIDE; Translations: [methazolamide] Drug Allergy 4 Weal (disorder) [facility] (2 sources) oxyCODONE; Translations: [oxycodone] Drug Allergy Loss of consciousness (finding) [facility] (2 sources) Acetaminophen / oxyCODONE Drug Allergy [address] [facility] (2 sources) doxyclin Allergy to substance [address] [facility] Medications Current Medications Medication Drug Class(es) [...] pain, # 30 tab(s), Refills(s) 0, Pharmacy: [facility]/pharmacy #[id number], 150, cm, 06/18/23 13:20:00 EDT, Height/Length [...] 08-28-2023 XR lumbar spine 6V w bending [facility] [place] [address] XRay Report Signed Patient: Vikki Yeh MR#: [id number] [birth year] : 1970 Acct:[id number] Age/Sex: 52 / F ADM Date: 08/28/23 Loc: XD Room: Type: [facility] Attending Dr: Justus Toscano MD Copies to: [...] Brandi Weinstein M.D.08/28/2023 4:52 PM Dictation Location: [place] [address] Transcribed By: [facility] 08/28/23 1652 Dictated By: Brandi Weinstein MD 08/28/23 1644 Signed By: 08/28/23 1652 Normal [facility] Physician Referralon 024 Physician Referral [id number]#1.00TIFF Normal [facility] Consultation Noteon 07-10-19 Consultation Note [id number] #1.00TIFF Normal [facility] RAD - MRI Reporton RAD - MRI Report [id number] #1.00TIFF Normal [facility] Reminderson 07-10-2023 Reminders - From: Shazia Kerr [...] ) Patient informed and voiced understanding. Normal [facility] PAP [id number] 07-09-2023 C. trachomatis rRNA STEFFANIE+probe Ql (Cvx) Negative Invalid Interpretation Code Negative [facility] Comment on above: Performed By: #### 1 [id number] #### [facility] [address] [place] [address] Cytology report Cyto stain Doc (Cvx/Vag) Note Invalid Interpretation Code [facility] Comment on above: Result Comment: TEST S RESULT FLAG UNITS REF RANGE LAB Clinician Provided Cytology Information Source.............Cervix No. of containers..01 ThinPrep Vial DIAGNOSIS: 01 NEGATIVE FOR INTRAEPITHELIAL LESION OR MALIGNANCY. Specimen adequacy: 01 Satisfactory for evaluation. Endocervical and/or squamous metaplastic cells (endocervical component) are present. Performed by: 01 Kylah Lee, Director Of Global Marketing ([facility]) . 01 Note: Note 01 The Pap [...] <-Panic Low,>-Panic High,A-Abnormal,AA-Critical Abnormal Performed at: [address] [place] [address] Callie Cardona MD, Performed By: #### 1 [id number] #### [facility] [address] [place] [address] HPV 16+18+31+33+35+39+45+ 51+52+56+58+59+66+68 DNA Probe+sig amp Ql (Cvx) Negative Invalid Interpretation Code Negative [facility] Comment on above: Result Comment: This nucleic acid amplification test detects fourteen high-risk HPV types (16,18,31,33,35,39,45,51,52,56,58,59,66,68) without differentiation. Performed By: #### 1 [id number] #### [facility] [address] [place] [address] N. gonorrhoeae rRNA STEFFANIE+probe Ql (Cvx) Negative Invalid Interpretation Code Negative [facility] Comment on above: Performed By: #### 1 [id number] #### [facility] [address] [place] [address] T. vaginalis rRNA STEFFANIE+probe Ql (Unsp spec) Negative Invalid Interpretation Code Negative [facility] Comment on above: Result Comment: Perf ormed at: [facility] [id number] MD Brendan Ledesma Performed at: =[facility] [id number] MD Brendan Ledesma Performed By: #### 1 [id number] #### [facility] [address] [place] [address] Outside Mammographyon 2023 Outside Mammography [id number]# 1.00TIFF Normal [facility] Reminderson 07-04-2023 Reminders - From: Shazia Kerr [...] 25.0 % (14.0 - 50.0) 07/03/2023 9:09 Bryan Auto 7.4 % (4.0 - 14.0) 07/03/2023 9:09 Eos Auto 5.4 % (0.0 - 8.0) 07/03/2023 9:09 Basophil Auto 1.1 % (0.0 - 2.0) 07/03/2023 9:09 Neutro Absolute 5.0 E9/L (2.0 - 7.5) 07/03/2023 9:09 Lymph Absolute 2.1 E9/L (1.0 - 4.0) 07/03/2023 9:09 Bryan Absolute 0.6 E9/L (0.2 - 1.0) 07/03/2023 [...] 5.60) Patient informed and voiced understanding. Normal [facility] CBC w/ Auto Diffon 4 Basophils/100 WBC (Bld) 1.1 % Normal 0.0-2.0 [facility] Comment on above: Performed By: #### 2 [id number] #### [facility] [address] [place] [address] Basophils/Leukocytes Auto (Bld) [Pure # fraction] 0.1 E9/L Normal 0.0-0.2 [facility] Comment on above: Performed By: #### 2 [id number] #### [facility] [address] [place] [address] Eosinophils (Bld) [#/Vol] 0.4 E9/L Normal 0.0-0.5 [facility] Comment on above: Performed By: #### 2 [id number] #### [facility] [address] [place] [address] Eosinophils/100 WBC (Bld) 5.4 % Normal 0.0-8.0 [facility] Comment on above: Performed By: #### 2 [id number] #### [facility] [address] [place] [address] Erythrocyte distribution width (RBC) [Ratio] 15.6 % High 10.9-14.2 [facility] Comment on above: Performed By: #### 2 [id number] #### [facility] [address] [place] [address] Hematocrit (Bld) [Volume fraction] 40.5 % Normal 34.0-46.0 [facility] Comment on above: Performed By: #### 2 [id number] #### [facility] [address] [place] [address] Hemoglobin (Bld) [Mass/Vol] 13.5 g/dL Normal 12.0-16.0 [facility] Comment on above: Performed By: #### 2 [id number] #### [facility] [address] [place] [address] Lymphocytes (Bld) [#/Vol] 2.1 E9/L Normal 1.0-4.0 [facility] Comment on above: Performed By: #### 2 [id number] #### [facility] [address] [place] [address] Lymphocytes/100 WBC (Bld) 25.0 % Normal 14.0-50.0 [facility] Comment on above: Performed By: #### 2 [id number] #### [facility] [address] [place] [address] MCH (RBC) [Entitic mass] 29.1 pg Normal 27.0-34.0 [facility] Comment on above: Performed By: #### 2 [id number] #### [facility] [address] [place] [address] MCHC (RBC) [Mass/Vol] 33.2 g/dL Normal 31.4-36.0 [facility] Comment on above: Performed By: #### 2 [id number] #### [facility] [address] [place] [address] MCV (RBC) [Entitic vol] 87.5 fL Normal 80.0-100.0 [facility] Comment on above: Performed By: #### 2 [id number] #### [facility] [address] [place] [address] Monocytes (Bld) [#/Vol] 0.6 E9/L Normal 0.2-1.0 [facility] Comment on above: Performed By: #### 2 [id number] #### [facility] [address] [place] [address] Neutrophils (Bld) [#/Vol] 5.0 E9/L Normal 2.0-7.5 [facility] Comment on above: Performed By: #### 2 [id number] #### [facility] [address] [place] [address] Neutrophils/100 WBC (Bld) 61.1 % Normal 36.0-75.0 [facility] Comment on above: Performed By: #### 2 [id number] #### [facility] [address] [place] [address] Platelet mean volume (Bld) [Entitic vol] 8.1 fL Normal 6.4-10.8 [facility] Comment on above: Performed By: #### 2 [id number] #### [facility] [address] [place] [address] Platelets (Bld) [#/Vol] 338.0 E9/L Normal 150.0-500.0 [facility] Comment on above: Performed By: #### 2 [id number] #### [facility] [address] [place] [address] RBC (Bld) [#/Vol] 4.6 E12/L Normal 4.3-5.9 [facility] Comment on above: Performed By: #### 2 [id number] #### [facility] [address] [place] [address] WBC corrected for nucl RBC Auto (Bld) [#/Vol] 8.2 E9/L Normal 4.0-11.0 [facility] Comment on above: Performed By: #### 2 750981 #### [facility] [address] [place] [address] CHEMISTRYOrdered By: SYSTEM SYSTEM on 07-03-2023 Albumin [...] 07-03-2023 Albumin [Mass/Vol] 4.2 g/dL Normal 3.3-5.0 [facility] Comment on above: Performed By: #### 2 [id number] #### [facility] [address] [place] [address] Albumin/Globulin (S) [Mass conc ratio] 1.3 Normal 1.1-2.2 [facility] Comment on above: Performed By: #### 2 849043 #### [facility] [address] [place] [address] ALP [Catalytic activity/Vol] 96 Int._Unit/L Normal 21-98 [facility] Comment on above: Performed By: #### 2 [id number] #### [facility] [address] [place] [address] ALT No additional P-5'-P [Catalytic activity/Vol] 20 Int._Unit/L Normal 6-46 [facility] Comment on above: Performed By: #### 2 [id number] #### [facility] [address] [place] [address] Anion gap [Moles/Vol] 9 mmol/L Normal 6-16 [facility] Comment on above: Performed By: #### 2 [id number] #### [facility] [address] [place] [address] AST [Catalytic activity/Vol] 20 Int._Unit/L Normal 5-43 [facility] Comment on above: Performed By: #### 2 [id number] #### [facility] [address] [place] [address] Bilirubin [Mass/Vol] 0.4 mg/dL Normal 0.0-1.1 [facility] Comment on above: Performed By: #### 2 308636 #### [facility] [address] [place] [address] Calcium [Mass/Vol] 9.2 mg/dL Normal 8.9-11.1 [facility] Comment on above: Performed By: #### 2 [id number] #### [facility] [address] [place] [address] Chloride [Moles/Vol] 105 mmol/L Normal 101-111 [facility] Comment on above: Performed By: #### 2 039907 #### [facility] [address] [place] [address] CO2 [Moles/Vol] 26 mmol/L Normal 21-31 [facility] Comment on above: Performed By: #### 2 648562 #### [facility] [address] [place] [address] Creatinine [Mass/Vol] 0.7 mg/dL Normal 0.5-1.3 [facility] Comment on above: Performed By: #### 2 777694 #### [facility] [address] [place] [address] Globulin (S) [Mass/Vol] 3.3 g/dL Normal 1.4-4.0 [facility] Comment on above: Performed By: #### 2 [id number] #### [facility] [address] [place] [address] Glucose [Mass/Vol] 81 mg/dL Normal 55-199 [facility] Comment on above: Performed By: #### 2 392831 #### [facility] [address] [place] [address] Potassium [Moles/Vol] 4.1 mmol/L Normal 3.5-5.3 [facility] Comment on above: Performed By: #### 2 434279 #### [facility] [address] [place] [address] Protein [Mass/Vol] 7.5 g/dL Normal 6.0-7.8 [facility] Comment on above: Performed By: #### 2 953862 #### [facility] [address] [place] [address] Sodium [Moles/Vol] 136 mmol/L Normal 135-145 [facility] Comment on above: Performed By: #### 2 324558 #### [facility] [address] [place] [address] Urea nitrogen [Mass/Vol] 9 mg/dL Normal 5-21 [facility] Comment on above: Performed By: #### 2 118605 #### [facility] [address] [place] [address] Urea nitrogen/Creatinine [Mass ratio] 13 No Units Normal 10-20 [facility] Comment on above: Performed By: #### 2 558560 #### [facility] [address] [place] [address] Family Medicine Office/Clini c Noteon 07-03-2023 Family [...] masses. Pap obtained Neurologic: Grossly normal Skin: Addison, moist, no tenting Lymph Nodes: No cervical adenopathy, nodes normal Mental Status: Alert and oriented x3. Normal mood and affect Assessment/Plan 1. Well woman exam (Z01.419: Encounter for gynecological examination (general) (routine) without abnormal findings) pt presents today for well woman exam. BSE discussed. mammogram done at [facility]. pap obtained without difficulty. pt scheduled for MRI of back next weeks Ordered: CBC w/ Auto Diff Comprehensive Metabolic Panel Lab Specimen Collect 69558 Lipid Panel PAP [id number] CT/GC/Trich HPV rflx Genotype PAP [id number] CT/GC/Trich HPV rflx Genotype Thyroid Stimulating Hormone 2. Screening for hyperlipidemia (Z13.220: Encounter for screening for lipoid disorders) lipid panel drawn Ordered: CBC w/ Auto Diff Comprehensive Metabolic Panel Lab Specimen Collect 40166 Lipid Panel PAP [id number] CT/GC/Trich HPV rflx Genotype Thyroid Stimulating Hormone 3. Screening for thyroid disorder (Z13.29: Encounter for screening for other suspected endocrine disorder) TSH drawn Ordered: CBC w/ Auto Diff Comprehensive Metabolic Panel Lab Specimen Collect 61801 Lipid Panel PAP 19920216 CT/GC/Trich HPV rflx Genotype Thyroid Stimulating Hormone 4. Fatigue (R53.83: Other fatigue) pt c/o fatigue will check CBC and TSH Ordered: CBC w/ Auto Diff Comprehensive Metabolic Panel Lab Specimen Collect 19238 Lipid Panel PAP 415669 CT/GC/Trich HPV rflx Genotype Thyroid Stimulating Hormone 5. Change of, skin texture (R23.4: Changes in skin texture) area on left thigh is dark, hard and has changed in texture. will refer to [facility] Ordered: [facility] [place] Ambulatory Referral Lab Specimen Collect [id number]/GC/Trich HPV rflx Genotype 6. Urinary incontinence in female (R32: Unspecified urinary incontinence) c/o worsening urinary incontinence pt requesting referral to [place]rogyn in [place]. Ordered: [facility] [place] Ambulatory Referral PAP [id number] CT/GC/Trich HPV rflx Genotype 7. Nasal polyps (J33.9: Nasal polyp, unspecified) pt had nasal polyps removed in 2019 and 2020. was supposed to follow up with ENT annually but has not done so since moving to [place], will refer to Dr. Bautista Ordered: [facility] External Ambulatory Referral PAP [id number] CT/GC/Trich HPV rflx Genotype 8. Screening for [...] blood pressure <80 mm Hg 3078F PAP 018019 CT/GC/Trich HPV rflx Genotype Systolic BP <130 mm Hg (Most Recent) 3074F Thyroid Stimulating Hormone 11. Class 1 obesity due to e (more content not included)... Normal [facility] Comment on above: Result Comment: Elec tronically [...] 07-03-2023 Cholesterol [Mass/Vol] 143 mg/dL Normal 120-200 [facility] Comment on above: Performed By: #### 2 [id number] #### [facility] [address] [place] [address] Cholesterol in HDL [Mass/Vol] 60 mg/dL Invalid Interpretation Code [facility] Comment on above: Result Comment: '>= 60 LOW RISK' '<= 40 HIGH RISK' Performed By: #### 2 091161 #### [facility] [address] [place] [address] Cholesterol in LDL [Mass/Vol] 58 mg/dL Normal <=129 [facility] Comment on above: Performed By: #### 2 720443 #### [facility] [address] [place] [address] Cholesterol in VLDL [Mass/Vol] 31 mg/dL Normal 7-40 [facility] Comment on above: Performed By: #### 2 784874 #### [facility] [address] [place] [address] Triglyceride [Mass/Vol] 157 mg/dL High <=149 [facility] Comment on above: Performed By: #### 2 [id number] #### [facility] [address] [place] [address] PAP [id number] 07-03-2023 PAP [id number] cancel Invalid Interpretation Code [facility] Comment on above: Performed By: #### 1 [id number] #### [facility] [address] [place] [address] Gynecological Body Site CERVIX Normal [facility] Comment on above: Performed By: #### 1 [id number] #### [facility] [address] [place] [address] Gynecological Body Site ENDOCERVIX Normal [facility] Comment on above: Performed By: #### 1 [id number] #### [facility] [address] [place] [address] Physician Referralon 024 Physician Referral [id number] #1.00TIFF Normal [facility] Physician Referral [id number] #1.00TIFF Normal [facility] Physician Referral [id number] 9#1.00TIFF Normal [facility] TSHon 07-03-2023 TSH Qn 2.05 m[IU]/L Normal 0.34-5.60 [facility] Comment on above: Performed By: #### 2 [id number] #### [facility] [address] [place] [address] eGFRon 07-03-2023 eGFR 103 mL/min/1.73 m2 Normal >=59 [facility] Comment on above: Order Comment: Order added by Discern Expert. Performed By: #### 1 [id number] #### [facility] [address] [place] [address] RAD - MISCon 06-25-2023 RAD - MISC [id number]# 1.00TIFF Normal [facility] RAD - MISC [id number] #1.00TIFF Normal [facility] Ambulatory Visit Summaryon 0 06-18-2023 Ambulatory Visit [...] 8:20 AM EDT With: Shazia Kerr Where: [facility] [place] Normal [facility] Family Medicine Office/Clini c Noteon 06-18-2023 Family Medicine Office/Clinic Note HPI Staff Vikki is a 52 year old female presenting to [facility] Establish Care: History: Any previous diagnosis: [...] order for jose f and go to [place]) Pelvic/Pap: 2000 normal EGD: had 2 of them had them done in [place] Current issues/complaints: Pain characteristics: Pain location: Right [...] day(s), # 21 tab(s), Refills(s) 0, Pharmacy: [facility]/pharmacy #[id number], 150, cm, 06/18/23 13:20:00 EDT, Height/Length Dosing, 75.8, kg, 06/18/23 13:20:00 EDT, Weight Dosing tramadol, 50 mg = 1 tab(s), Oral, q12hr, PRN for pain, # 30 tab(s), Refills(s) 0, Pharmacy: [facility]/pharmacy #[id number], 150, cm, 06/18/23 13:20:00 EDT, Height/Length Dosing, 75.8, kg, 06/18/23 13:20:00 EDT, Weight Dosing XR Hip 2-3 Views Right XR Spine Lumbosacral Minimum 4 Views 2. Right hip pain (M25.551: Pain in right hip) x ray order provided will go to [facility] Ordered: methylPREDNISolone, = 1 packet(s), Oral, As Directed, as directed on package labeling, X 6 day(s), # 21 tab(s), Refills(s) 0, [id number], 150, cm, 06/18/23 13:20:00 EDT, Height/Length Dosing, 75.8, kg, 06/18/23 13:20:00 EDT, Weight Dosing tramadol, 50 mg = 1 tab(s), Oral, q12hr, PRN for pain, # 30 tab(s), Refills(s) 0, Pharmacy: [facility]/pharmacy #[id number], 150, cm, 06/18/23 13:20:00 EDT, Height/Length [...] day(s), # 21 tab(s), Refills(s) 0, Pharmacy: [facility]/pharmacy #[id number], 150, cm, 06/18/23 13:20:00 EDT, Height/Length Dosing, 75.8, kg, 06/18/23 13:20:00 EDT, Weight Dosing tramadol, 50 mg = 1 tab(s), Oral, q12hr, PRN for pain, # 30 tab(s), Refills(s) 0, Pharmacy: [facility]/pharmacy #[id number], 150, cm, 06/18/23 13:20:00 EDT, Height/Length [...] for pain, (more content not included)... Normal [facility] Comment on above: Result Comment: Elec tronically Signed By: Patric BLANCO, Shazia Mcclain\.br\Date and Time Signed: 06/18/23 17:37 EDT Vital Signs Date Time Vital Sign Value Performing Clinician Johni isaac 08-29-2023 13:11-0400 Body height 149.86 cm MD Antoine Corral Work Phone: [facility] 08-29-2023 13:11-0400 Body mass index (BMI) [Ratio] 34.3 kg/m2 MD Antoine Corral Work Phone: [facility] 08-29-2023 13:11-0400 Body weight 77.11 kg MD Antoine Corral Work Phone: [facility] Encounters Encounter Date Encounter Type Care Provider Facility Start: 09-16-2023 End: 09-16-2023 ambulatory ELISEO BRYAN Not Available Start: 08-29-2023 End: 08-29-2023 ambulatory MD Antoine Corral Work Phone: [facility] Work Phone: Start: 08-29-2023 End: 08-29-2023 Patient encounter procedure MD Antoine Corral Work Phone: [facility] Work Phone: Start: 08-28-2023 End: 08-28-2023 Patient encounter procedure MD Antoine Corral Work Phone: [facility] Work Phone: Start: 08-28-2023 End: 08-28-2023 ambulatory MD Antoine Corral Work Phone: [facility] Work Phone: Start: 07-10-2023 End: 07-10-2023 ambulatory DOROTHY BAUTISTA Not Available Start: 07-03-2023 End: 07-04-2023 ambulatory Shazia L Patric Facility:[facility] Start: 07-03-2023 End: 07-03-2023 Lab Drop off Shazia L Patric [facility] Start: 06-18-2023 End: 06-19-2023 ambulatory TAX STAFF ACCOUNTANT Shazia L Patric Facility:[facility] [place] [facility] Start: 06-17-2023 ambulatory TAX STAFF ACCOUNTANT Shazia L Patric [facility] Procedures Date Procedure Procedure Detail Performing Clinician Start: 08-28-2023 X-ray of lumbar spin e, six views including bending views MD Antoine Corral Work Phone: [facility] Shazia Patric Comment on above: 2008 Surgery (qualifier value) Margareth di Patric Surgical procedure Shazia Schw ab Payers Date Payer Category Payer Private Health Insurance [id number] 1970 Unknown [id number] 2.16.8 [id number] 1970 Unknown [id number] 2.16.8 [id number] 1970 Unknown [id number] 2.16.8 [id number] 1970 Unknown [id number] 2.16.8 [id number] 1970 Unknown [id number] 2.16.84 [id number] 1970 Unknown [id number] 2.16.84 [id number] 1970 Unknown [id number] 2.16.84 [id number] Social History Date Type Detail Facility Start: 04-17-2023 End: 07-03-2023 Tobacco smoking status Never smoked tobacco (finding) [facility] Tobacco smoking status Never [facility] Sex Assigned At Female [facility] Start: 1970 Sex Assigned At Female F [facility] Evaluation + Plan note 07-03-2023 Note Date & Type Note Facility 07-03-2023 Evaluation + Plan note Diagnostic Tests PendingNCP [id number] CT/GC/Trich HPV rflx Genotype 07/03/23 [facility] Evaluation note Note Date & Type Note Facility Evaluation note [facility] Hospital course Narrative Note Date & Type Note Facility Hospital course Narrative No data available for this section [facility] Hospital Discharge instructions Note Date & Type Note Facility Hospital Discharge instructions No data available for this section [facility] Progress note Note Date & Type Note Facility Progress note No data available for this section [facility] Summary Purpose Family History [...] and content) DATE CREATED AUTHOR 07/05/2023 [facility] DATE CREATED AUTHOR AUTHOR'S ORGANIZ ATION 07/06/2023 Hameed [facility] DATE CREATED AUTHOR AUTHOR'S ORGANIZ ATION 07/10/2023 [facility] DATE CREATED AUTHOR AUTHOR'S ORGANIZ ATION 07/11/2023 [facility] DATE CREATED AUTHOR AUTHOR'S ORGANIZ ATION 09/01/2023 [facility] DATE CREATED AUTHOR AUTHOR'S ORGANIZ ATION 09/17/2023 [facility] EPIC Goals (unrecognized section and content) Goals may [...] BE BASED ON THE PRIMARY CLINICAL RECORDS. [facility] [employer] provides no warranty or guarantee of the accuracy or completeness of information in this document.
== END 2023-11-12 14:00 | disposition home or self-care (01) ==
LOC: US 13:59
PROVIDERS: PCP Family Medicine; Visit Provider Nurse Practitioner
DX: M79.604 Pain in right leg (principal); M79.605 Pain in left leg; R60.0 Localized edema
CPT/HCPCS: 93971

== ENCOUNTER 2023-11-21 12:50 | Outpatient (OUT) | payer MEDICAID, SELFPAY ==
--- OUTSIDE RECORDS SUMMARY | 2023-11-21 13:08 | XMS_ITS | CCD ---
Author Organization [facility] Care Team Providers Care Nuclear Pharmacist Name Role Phone Shazia Coker Primary Care Physician [phone] Margareth Cokerdi Sarahi Attending Unavailable Patric, ORAL THERAPIST Shazia L Attending Unavailable Patric, ORAL THERAPIST Shazia L Admitting Unavailable Patric, ORAL THERAPIST Shazia L Admitting Unavailable Patric, ORAL THERAPIST Shazia L Attending Unavailable Patric, ORAL THERAPISTAdriana Mcclain Attending Unavailable Patric, FRANCIS Mcclain Attending Unavailable Patric, FRANCIS Shazia L Attending Unavailable MD Antoine Corral Primary Care Provider MD Justus Toscano Attending Provider Justus Toscano Attending Unavailable Justus Toscano Admitting Unavailable Antoine Corral Primary Care Unavailable DOROTHY BAUTISTA Attending Unavailable PATRIC, SHAZIA Referring Unavailable GERALDINE MOISE Attending Unavailable PATRIC, SHAZIA Referring Unavailable ELISEO BRYAN Attending Unavailable Allergies Allergy Classification Reported Allergen(s) Allergy Type Date of Onset Reaction(s) Facility (2 sources) Doxycycline; Translations: [doxycycline] Drug Allergy Dizziness (finding) [facility] (4 sources) methazolAMIDE; Translations: [methazolamide] Drug Allergy 4 Weal (disorder) [facility] (2 sources) oxyCODONE; Translations: [oxycodone] Drug Allergy Loss of consciousness (finding) [facility] (2 sources) Acetaminophen / oxyCODONE Drug Allergy 4 Anaphylaxis [facility] (2 sources) doxyclin Allergy to substance 4 Dizziness [facility] Medications Current Medications Medication Drug Class(es) [...] pain, # 30 tab(s), Refills(s) 0, Pharmacy: [facility]/pharmacy #[id number], 150, cm, 06/18/23 13:20:00 EDT, [...] 08-28-2023 XR lumbar spine 6V w bending [facility] [address] XRay Report Signed Patient: Vikki Yeh MR#: [id number] [birth year] : 1970 Acct:[id number] Age/Sex: 52 / F ADM Date: 08/28/23 Loc: XD Room: Type: [facility] Attending Dr: Justus Toscano MD Copies to: [...] Brandi Weinstein M.D.08/28/2023 4:52 PM Dictation Location: [place] [address] Transcribed By: [facility] 08/28/23 1652 Dictated By: Brandi Weinstein MD 08/28/23 1644 Signed By: 08/28/23 1652 Normal [facility] Physician Referralon 024 Physician Referral [id number] 41#1.00TIFF Normal [facility] Consultation Noteon 07-10-19 Consultation Note [id number] #1.00TIFF Normal [facility] RAD - MRI Reporton RAD - MRI Report [id number] #1.00TIFF Normal [facility] Reminderson 07-10-2023 Reminders - From: Shazia [...] ) Patient informed and voiced understanding. Normal [facility] PAP [id number] 07-09-2023 C. trachomatis rRNA STEFFANIE+probe Ql (Cvx) Negative Invalid Interpretation Code Negative [facility] Comment on above: Performed By: #### 1 [id number] #### [facility] [address] [place] [address] Cytology report Cyto stain Doc (Cvx/Vag) Note Invalid Interpretation Code [facility] Comment on above: Result Comment: TEST S RESULT FLAG UNITS REF RANGE LAB Clinician Provided Cytology Information Source.............Cervix No. of containers..01 ThinPrep Vial DIAGNOSIS: 01 NEGATIVE FOR INTRAEPITHELIAL LESION OR MALIGNANCY. Specimen adequacy: 01 Satisfactory for evaluation. Endocervical and/or squamous metaplastic cells (endocervical component) are present. Performed by: 01 Kylah Lee, Ichthyologist ([facility]) . 01 Note: Note 01 [...] <-Panic Low,>-Panic High,A-Abnormal,AA-Critical Abnormal Performed at: [address] [facility] [place] [address] Callie Cardona MD, Performed By: #### 1 [id number] #### [facility] [address] [place] [address] HPV 16+18+31+33+35+39+45+ 51+52+56+58+59+66+68 DNA Probe+sig amp Ql (Cvx) Negative Invalid Interpretation Code Negative [facility] Comment on above: Result Comment: This nucleic acid amplification test detects fourteen high-risk HPV types (16,18,31,33,35,39,45,51,52,56,58,59,66,68) without differentiation. Performed By: #### 1 [id number] #### [facility] [address] [place] [address] N. gonorrhoeae rRNA STEFFANIE+probe Ql (Cvx) Negative Invalid Interpretation Code Negative [facility] Comment on above: Performed By: #### 1 [id number] #### [facility] [address] [place] [address] T. vaginalis rRNA STEFFANIE+probe Ql (Unsp spec) Negative Invalid Interpretation Code Negative [facility] Comment on above: Result Comment: Perf ormed at: [facility] [id number] MD Brendan Ledesma Performed at: =[facility] [id number] MD Brendan Ledesma Performed By: #### 1 [id number] #### [facility] [address] [place] [address] Outside Mammographyon 2023 Outside Mammography [id number]# 1.00TIFF Normal [facility] Reminderson 07-04-2023 Reminders - From: Shazia Kerr [...] 25.0 % (14.0 - 50.0) 07/03/2023 9:09 [place] Auto 7.4 % (4.0 - 14.0) 07/03/2023 9:09 Eos Auto 5.4 % (0.0 - 8.0) 07/03/2023 9:09 Basophil Auto 1.1 % (0.0 - 2.0) 07/03/2023 9:09 Neutro Absolute 5.0 E9/L (2.0 - 7.5) 07/03/2023 9:09 Lymph Absolute 2.1 E9/L (1.0 - 4.0) 07/03/2023 9:09 [place] Absolute 0.6 E9/L (0.2 - 1.0) 07/03/2023 [...] 5.60) Patient informed and voiced understanding. Normal [facility] CBC w/ Auto Diffon 4 Basophils/100 WBC (Bld) 1.1 % Normal 0.0-2.0 [facility] Comment on above: Performed By: #### 2 [id number] #### [facility] [address] [place] [address] Basophils/Leukocytes Auto (Bld) [Pure # fraction] 0.1 E9/L Normal 0.0-0.2 [facility] Comment on above: Performed By: #### 2 [id number] #### [facility] [address] [place] [address] Eosinophils (Bld) [#/Vol] 0.4 E9/L Normal 0.0-0.5 [facility] Comment on above: Performed By: #### 2 [id number] #### [facility] [address] [place] [address] Eosinophils/100 WBC (Bld) 5.4 % Normal 0.0-8.0 [facility] Comment on above: Performed By: #### 2 [id number] #### [facility] [address] [place] [address] Erythrocyte distribution width (RBC) [Ratio] 15.6 % High 10.9-14.2 [facility] Comment on above: Performed By: #### 2 [id number] #### [facility] [address] [place] [address] Hematocrit (Bld) [Volume fraction] 40.5 % Normal 34.0-46.0 [facility] Comment on above: Performed By: #### 2 [id number] #### [facility] [address] [place] [address] Hemoglobin (Bld) [Mass/Vol] 13.5 g/dL Normal 12.0-16.0 [facility] Comment on above: Performed By: #### 2 [id number] #### [facility] [address] [place] [address] Lymphocytes (Bld) [#/Vol] 2.1 E9/L Normal 1.0-4.0 [facility] Comment on above: Performed By: #### 2 093657 #### [facility] [address] [place] [address] Lymphocytes/100 WBC (Bld) 25.0 % Normal 14.0-50.0 [facility] Comment on above: Performed By: #### 2 [id number] #### [facility] [address] [place] [address] MCH (RBC) [Entitic mass] 29.1 pg Normal 27.0-34.0 [facility] Comment on above: Performed By: #### 2 [id number] #### [facility] [address] [place] [address] MCHC (RBC) [Mass/Vol] 33.2 g/dL Normal 31.4-36.0 [facility] Comment on above: Performed By: #### 2 [id number] #### [facility] [address] [place] [address] MCV (RBC) [Entitic vol] 87.5 fL Normal 80.0-100.0 [facility] Comment on above: Performed By: #### 2 [id number] #### [facility] [address] [place] [address] Monocytes (Bld) [#/Vol] 0.6 E9/L Normal 0.2-1.0 [facility] Comment on above: Performed By: #### 2 [id number] #### [facility] [address] [place] [address] Neutrophils (Bld) [#/Vol] 5.0 E9/L Normal 2.0-7.5 [facility] Comment on above: Performed By: #### 2 039313 #### [facility] [address] [place] [address] Neutrophils/100 WBC (Bld) 61.1 % Normal 36.0-75.0 [facility] Comment on above: Performed By: #### 2 465689 #### [facility] [address] [place] [address] Platelet mean volume (Bld) [Entitic vol] 8.1 fL Normal 6.4-10.8 [facility] Comment on above: Performed By: #### 2 [id number] #### [facility] [address] [place] [address] Platelets (Bld) [#/Vol] 338.0 E9/L Normal 150.0-500.0 [facility] Comment on above: Performed By: #### 2 891382 #### [facility] [address] [place] [address] RBC (Bld) [#/Vol] 4.6 E12/L Normal 4.3-5.9 [facility] Comment on above: Performed By: #### 2 176085 #### [facility] [address] [place] [address] WBC corrected for nucl RBC Auto (Bld) [#/Vol] 8.2 E9/L Normal 4.0-11.0 [facility] Comment on above: Performed By: #### 2 599312 #### [facility] [address] [place] [address] CHEMISTRYOrdered By: SYSTEM SYSTEM on 07-03-2023 Albumin [...] 07-03-2023 Albumin [Mass/Vol] 4.2 g/dL Normal 3.3-5.0 [facility] Comment on above: Performed By: #### 2 [id number] #### [facility] [address] [place] [address] Albumin/Globulin (S) [Mass conc ratio] 1.3 Normal 1.1-2.2 [facility] Comment on above: Performed By: #### 2 370838 #### [facility] [address] [place] [address] ALP [Catalytic activity/Vol] 96 Int._Unit/L Normal 21-98 [facility] Comment on above: Performed By: #### 2 368226 #### [facility] [address] [place] [address] ALT No additional P-5'-P [Catalytic activity/Vol] 20 Int._Unit/L Normal 6-46 [facility] Comment on above: Performed By: #### 2 124872 #### [facility] [address] [place] [address] Anion gap [Moles/Vol] 9 mmol/L Normal 6-16 [facility] Comment on above: Performed By: #### 2 589862 #### [facility] [address] [place] [address] AST [Catalytic activity/Vol] 20 Int._Unit/L Normal 5-43 [facility] Comment on above: Performed By: #### 2 858375 #### [facility] [address] [place] [address] Bilirubin [Mass/Vol] 0.4 mg/dL Normal 0.0-1.1 [facility] Comment on above: Performed By: #### 2 663645 #### [facility] [address] [place] [address] Calcium [Mass/Vol] 9.2 mg/dL Normal 8.9-11.1 [facility] Comment on above: Performed By: #### 2 395872 #### [facility] [address] [place] [address] Chloride [Moles/Vol] 105 mmol/L Normal 101-111 [facility] Comment on above: Performed By: #### 2 662523 #### [facility] [address] [place] [address] CO2 [Moles/Vol] 26 mmol/L Normal 21-31 [facility] Comment on above: Performed By: #### 2 325153 #### [facility] [address] [place] [address] Creatinine [Mass/Vol] 0.7 mg/dL Normal 0.5-1.3 [facility] Comment on above: Performed By: #### 2 124444 #### [facility] [address] [place] [address] Globulin (S) [Mass/Vol] 3.3 g/dL Normal 1.4-4.0 [facility] Comment on above: Performed By: #### 2 860897 #### [facility] [address] [place] [address] Glucose [Mass/Vol] 81 mg/dL Normal 55-199 [facility] Comment on above: Performed By: #### 2 772426 #### [facility] [address] [place] [address] Potassium [Moles/Vol] 4.1 mmol/L Normal 3.5-5.3 [facility] Comment on above: Performed By: #### 2 831593 #### [facility] [address] [place] [address] Protein [Mass/Vol] 7.5 g/dL Normal 6.0-7.8 [facility] Comment on above: Performed By: #### 2 888655 #### [facility] [address] [place] [address] Sodium [Moles/Vol] 136 mmol/L Normal 135-145 [facility] Comment on above: Performed By: #### 2 410033 #### [facility] [address] [place] [address] Urea nitrogen [Mass/Vol] 9 mg/dL Normal 5-21 [facility] Comment on above: Performed By: #### 2 740507 #### [facility] [address] [place] [address] Urea nitrogen/Creatinine [Mass ratio] 13 No Units Normal 10-20 [facility] Comment on above: Performed By: #### 2 080983 #### [facility] [address] [place] [address] Family Medicine Office/Clini c Noteon 07-03-2023 Family [...] masses. Pap obtained Neurologic: Grossly normal Skin: [place], moist, no tenting Lymph Nodes: No cervical adenopathy, nodes normal Mental Status: Alert and oriented x3. Normal mood and affect Assessment/Plan 1. Well woman exam (Z01.419: Encounter for gynecological examination (general) (routine) without abnormal findings) pt presents today for well woman exam. BSE discussed. mammogram done at [facility]. pap obtained without difficulty. pt scheduled for MRI of back next weeks Ordered: CBC w/ Auto Diff Comprehensive Metabolic Panel Lab Specimen Collect [id number] Lipid Panel PAP 132840 CT/GC/Trich HPV rflx Genotype PAP [id number] CT/GC/Trich HPV rflx Genotype Thyroid Stimulating Hormone 2. Screening for hyperlipidemia (Z13.220: Encounter for screening for lipoid disorders) lipid panel drawn Ordered: CBC w/ Auto Diff Comprehensive Metabolic Panel Lab Specimen Collect 70701 Lipid Panel PAP [id number] CT/GC/Trich HPV rflx Genotype Thyroid Stimulating Hormone 3. Screening for thyroid disorder (Z13.29: Encounter for screening for other suspected endocrine disorder) TSH drawn Ordered: CBC w/ Auto Diff Comprehensive Metabolic Panel Lab Specimen Collect 82406 Lipid Panel PAP [id number] CT/GC/Trich HPV rflx Genotype Thyroid Stimulating Hormone 4. Fatigue (R53.83: Other fatigue) pt c/o fatigue will check CBC and TSH Ordered: CBC w/ Auto Diff Comprehensive Metabolic Panel Lab Specimen Collect 74633 Lipid Panel PAP 038337 CT/GC/Trich HPV rflx Genotype Thyroid Stimulating Hormone 5. Change of, skin texture (R23.4: Changes in skin texture) area on left thigh is dark, hard and has changed in texture. will refer to [facility] Ordered: [facility] External Ambulatory Referral Lab Specimen Collect [id number]/GC/Trich HPV rflx Genotype 6. Urinary incontinence in female (R32: Unspecified urinary incontinence) c/o worsening urinary incontinence pt requesting referral to urogyn in [place]. Ordered: [facility] External Ambulatory Referral PAP [id number] CT/GC/Trich HPV rflx Genotype 7. Nasal polyps (J33.9: Nasal polyp, unspecified) pt had nasal polyps removed in 2019 and 2020. was supposed to follow up with ENT annually but has not done so since moving to [place], will refer to Dr. Bautista Ordered: [facility] External Ambulatory Referral PAP [id number] CT/GC/Trich HPV rflx Genotype 8. Screening for [...] blood pressure <80 mm Hg 3078F PAP 384994 CT/GC/Trich HPV rflx Genotype Systolic BP <130 mm Hg (Most Recent) 3074F Thyroid Stimulating Hormone 11. Class 1 obesity due to e (more content not included)... Normal [facility] Comment on above: Result Comment: Elec [...] 07-03-2023 Cholesterol [Mass/Vol] 143 mg/dL Normal 120-200 [facility] Comment on above: Performed By: #### 2 466350 #### [facility] [address] [place] [address] Cholesterol in HDL [Mass/Vol] 60 mg/dL Invalid Interpretation Code [facility] Comment on above: Result Comment: '>= 60 LOW RISK' '<= 40 HIGH RISK' Performed By: #### 2 165463 #### [facility] [address] [place] [address] Cholesterol in LDL [Mass/Vol] 58 mg/dL Normal <=129 [facility] Comment on above: Performed By: #### 2 954338 #### [facility] [address] [place] [address] Cholesterol in VLDL [Mass/Vol] 31 mg/dL Normal 7-40 [facility] Comment on above: Performed By: #### 2 199826 #### [facility] [address] [place] [address] Triglyceride [Mass/Vol] 157 mg/dL High <=149 [facility] Comment on above: Performed By: #### 2 065221 #### [facility] [address] [place] [address] PAP [id number] 07-03-2023 PAP [id number] cancel Invalid Interpretation Code [facility] Comment on above: Performed By: #### 1 [id number] #### [facility] [address] [place] [address] Gynecological Body Site CERVIX Normal [facility] Comment on above: Performed By: #### 1 [id number] #### [facility] [address] [place] [address] Gynecological Body Site ENDOCERVIX Normal [facility] Comment on above: Performed By: #### 1 [id number] #### [facility] [address] [place] [address] Physician Referralon 024 Physician Referral [id number] #1.00TIFF Normal [facility] Physician Referral [id number] #1.00TIFF Normal [facility] Physician Referral [id number] 9#1.00TIFF Normal [facility] TSHon 07-03-2023 TSH Qn 2.05 m[IU]/L Normal 0.34-5.60 [facility] Comment on above: Performed By: #### 2 [id number] #### [facility] [address] [place] [address] eGFRon 07-03-2023 eGFR 103 mL/min/1.73 m2 Normal >=59 [facility] Comment on above: Order Comment: Order added by Discern Expert. Performed By: #### 1 [id number] #### [facility] [address] [place] [address] RAD - MISCon 06-25-2023 RAD - MISC [id number]# 1.00TIFF Normal [facility] RAD - MISC [id number] #1.00TIFF Normal [facility] Ambulatory Visit Summaryon 0 06-18-2023 Ambulatory [...] 8:20 AM EDT With: Shazia Kerr Where: [facility] [place] Normal [facility] Family Medicine Office/Clini c Noteon 06-18-2023 Family Medicine Office/Clinic Note HPI Staff Vikki is a 52 year old female presenting to [facility] Establish Care: History: Any previous diagnosis: Gerd, [...] order for jose f and go to [place]) Pelvic/Pap: 2000 normal EGD: had 2 of them had them done in [place] Current issues/complaints: Pain characteristics: Pain location: Right [...] day(s), # 21 tab(s), Refills(s) 0, Pharmacy: [facility]/pharmacy #[id number], 150, cm, 06/18/23 13:20:00 EDT, Height/Length Dosing, 75.8, kg, 06/18/23 13:20:00 EDT, Weight Dosing tramadol, 50 mg = 1 tab(s), Oral, q12hr, PRN for pain, # 30 tab(s), Refills(s) 0, Pharmacy: [facility]/pharmacy #[id number], 150, cm, 06/18/23 13:20:00 EDT, Height/Length Dosing, 75.8, kg, 06/18/23 13:20:00 EDT, Weight Dosing XR Hip 2-3 Views Right XR Spine Lumbosacral Minimum 4 Views 2. Right hip pain (M25.551: Pain in right hip) x ray order provided will go to [facility] Ordered: methylPREDNISolone, = 1 packet(s), Oral, As Directed, as directed on package labeling, X 6 day(s), # 21 tab(s), Refills(s) 0, [id number] 150, cm, 06/18/23 13:20:00 EDT, Height/Length Dosing, 75.8, kg, 06/18/23 13:20:00 EDT, Weight Dosing tramadol, 50 mg = 1 tab(s), Oral, q12hr, PRN for pain, # 30 tab(s), Refills(s) 0, Pharmacy: [facility]/pharmacy #[id number], 150, cm, 06/18/23 13:20:00 EDT, [...] day(s), # 21 tab(s), Refills(s) 0, Pharmacy: [facility]/pharmacy #[id number], 150, cm, 06/18/23 13:20:00 EDT, Height/Length Dosing, 75.8, kg, 06/18/23 13:20:00 EDT, Weight Dosing tramadol, 50 mg = 1 tab(s), Oral, q12hr, PRN for pain, # 30 tab(s), Refills(s) 0, Pharmacy: [facility]/pharmacy #[id number], 150, cm, 06/18/23 13:20:00 EDT, [...] for pain, (more content not included)... Normal [facility] Comment on above: Result Comment: Elec tronically Signed By: Patric BLANCO, Shazia Mcclain\.br\Date and Time Signed: 06/18/23 17:37 EDT Vital Signs Date Time Vital Sign Value Performing Clinician Johni isaac 08-29-2023 13:11-0400 Body height 149.86 cm MD Antoine Corral Work Phone: [facility] 08-29-2023 13:11-0400 Body mass index (BMI) [Ratio] 34.3 kg/m2 MD Antoine Corral Work Phone: [facility] 08-29-2023 13:11-0400 Body weight 77.11 kg MD Antoine Corral Work Phone: [facility] Encounters Encounter Date Encounter Type Care Provider Facility Start: 09-16-2023 End: 09-16-2023 ambulatory ELISEO BRYAN Not Available Start: 08-29-2023 End: 08-29-2023 ambulatory MD Antoine Corral Work Phone: [facility] Work Phone: Start: 08-29-2023 End: 08-29-2023 Patient encounter procedure MD Antoine Corral Work Phone: [facility] Work Phone: Start: 08-28-2023 End: 08-28-2023 Patient encounter procedure MD Antoine Corral Work Phone: [facility] Work Phone: Start: 08-28-2023 End: 08-28-2023 ambulatory MD Antoine Corral Work Phone: [facility] Work Phone: Start: 07-10-2023 End: 07-10-2023 ambulatory DOROTHY BAUTISTA Not Available Start: 07-03-2023 End: 07-04-2023 ambulatory Shazia L Patric Facility:[facility] [place] [facility] Start: 07-03-2023 End: 07-03-2023 Lab Drop off Shazia L Patric [facility] Start: 06-18-2023 End: 06-19-2023 ambulatory ORAL THERAPIST Shazia L Patric Facility:[facility] [place] [facility] Start: 06-17-2023 ambulatory ORAL THERAPIST Shazia L Pat[facility] Date Procedure Procedure Detail Performing Clinician Start: 08-28-2023 X-ray of lumbar spin e, six views including bending views MD Antoine Corral Work Phone: [facility] Shazia Patric Comment on above: 2008 Surgery (qualifier value) Margareth di Patric Surgical procedure Shazia Schw ab Payers Date Payer Category Payer Private Health Insurance [id number] 1970 Unknown [id number] 2.16.8 [id number] 1970 Unknown [id number] 2.16.8 [id number] 1970 Unknown [id number] 2.16.8 [id number] 1970 Unknown [id number] 2.16.8 [id number] 1970 Unknown [id number] 2.16.84 [id number] 1970 Unknown [id number] 2.16.84 [id number] 1970 Unknown [id number] 2.16.84 [id number] Social History Date Type Detail Facility Start: 04-17-2023 End: 07-03-2023 Tobacco smoking status Never smoked tobacco (finding) [facility] Sex Assigned At Female [facility] Start: 1970 Sex Assigned At Female F [facility] Evaluation + Plan note 07-03-2023 Note Date & Type Note Facility 07-03-2023 Evaluation + Plan note Diagnostic Tests PendingRIP [id number] CT/GC/Trich HPV rflx Genotype 07/03/23 [facility] Evaluation note Note Date & Type Note Facility Evaluation note [facility] Narrative Note Date & Type Note Facility Hospital course Narrative No data available for this section [facility] Hospital Discharge instructions Note Date & Type Note Facility Hospital Discharge instructions No data available for this section [facility] Progress note Note Date & Type Note Facility Progress note No data available for this section [facility] Summary Purpose Family History Relationship Condition [...] CREATED AUTHOR AUTHOR'S ORGANIZ ATION 07/06/2023 [facility] DATE CREATED AUTHOR AUTHOR'S ORGANIZ ATION 07/10/2023 [facility] DATE CREATED AUTHOR AUTHOR'S ORGANIZ ATION 07/11/2023 [facility] DATE CREATED AUTHOR AUTHOR'S ORGANIZ ATION 09/01/2023 [facility] DATE CREATED AUTHOR AUTHOR'S ORGANIZ ATION 09/17/2023 [facility] EPIC Goals (unrecognized section [...] BE BASED ON THE PRIMARY CLINICAL RECORDS. [facility] [employer] provides no warranty or guarantee of the accuracy or completeness of information in this document.
--- NOTE | 2023-11-21 13:13 | P.CN_ITS ---
Consult Note: HPI Data of Consult Patient: known to practice within the last 3 years Requesting Physician: Kenia English NP Primary Care Provider: GO DOYLE Consult Narrative Reason for consult: right hip pain Narrative: Bridget molina 53 year old female presents for evaluation and management of right hip pain, 02/20 today increasing to mild with walking. recent right GTB injection providing 95% improvement ongoing. continues to utilize topical lidocaine, salon pas PRN as well as tylenol and baclofen with significant benefit. engaged in HEP as tolerated. cc:: CC: Kenia English NP Review of Systems ROS Status of ROS 10 or more systems reviewed and unremark able except as noted in history and below Musculoskeletal Reports: extremity pain; Denies: back pain or joint pain PFSH PFSH Social History Smoking status: Never smoker Meds Home Medications and Allergies Home Medications ?Medication ?Instructions ?Recorded ?Confirmed ?Type ibuprofen 600 mg tablet 600 mg PO Q8H PRN pain #20 tabs 01/13/23 Rx calcium phos,dibas-vitamin D3 PO QDAY 09/10/23 History loratadine 10 mg tablet 10 mg PO DAILY 09/10/23 09/10/23 History rimegepant 75 mg disintegrating mg PRN migraine headache 09/10/23 History tablet (Nurtec ODT) Allergies Allergy/AdvReac Type Severity Reaction Status Date / Time methazolamide (From Allergy Mild Unknown Verified 09/10/23 15:11 Neptazane) acetaminophen (From Percocet) Allergy Unknown unknown Verified 09/10/23 15:11 doxycycline Allergy Unknown Unknown Verified 09/10/23 15:11 oxycodone (From Percocet) Allergy Unknown Unknown Verified 09/10/23 15:11 Exam Constitutional Documenting provider has reviewed patient's vital signs: yes Common normals: no apparent distress, oriented x3, healthy appearing, alert and well nourished General appearance: cooperative HENMT Common normals: normocephalic, hearing grossly normal bilaterally and moist oral mucous membranes Head and scalp: normocephalic Eye Common normals: PERRL Pupil: PERRL Neck & C-Spine Common normals: full ROM General: normal visual inspection Chest Common normals: inspection of chest normal Respiratory Common normals: normal respiratory effort, no retractions and no use of accessory muscles Back & Pelvis Lumbar spine/lower back: normal to inspection, lumbar ROM normal and straight leg raise negative bilaterally; no pain with ROM, no lumbar spinal tenderness, no paraspinal muscle tenderness and no paraspinal muscle spasm Sacroiliac joints: SI joints normal Other: mild tenderness over right GTB non tender over right IT band Extremity Common normals: normal to inspection and full ROM Neuro Common normals: oriented x3, CN's II-XII intact bilaterally, moves all extremities, no focal motor deficits, no sensory deficits noted, deep tendon reflexes 2+ bilaterally and gait normal Sensorium/orientation: alert Motor exam: strength 5/5 throughout and no movement abnormalities noted Psych Common normals: mental status grossly normal, thought process normal, cooperative, affect normal, speech normal and activity/motor behavior normal Speech: normal speech Thought process: normal thought process Assessment and Plan Assessment and Plan (1) Greater trochanteric bursitis of right hip: (2) Myalgia: Plan continue HEP as tolerated continue current medications as needed f/u as needed, we discussed the expectations of previous injection
== END 2023-11-21 12:51 | disposition home or self-care (01) ==
LOC: PM 12:54
PROVIDERS: PCP Family Medicine; Visit Provider Nurse Practitioner
DX: M70.61 Trochanteric bursitis, right hip (principal); M79.10 Myalgia, unspecified site
CPT/HCPCS: G0463

== ENCOUNTER 2024-03-11 12:49 | Outpatient (OUT) | payer MEDICAID, SELFPAY ==
--- NOTE | 2024-03-11 12:53 | US_ITS ---
The [address] [address] Patient Name: VIKKI YEH MRN: [id number] date: 1970 Sex: F Assigned Patient Location: [place] Current Patient Location: [place] Accession/Order Number: [id number] Exam Date: 03/11/2024 13:00 Report Date: 03/11/2024 13:55 At the request of: NIR SPIVEY Procedure: US pelvis EXAMINATION: US pelvis HISTORY: Urinary Incontinence, Incomplete Uterovaginal Prolapse COMPARISON: No relevant comparison available. TECHNIQUE: Transabdominal and/or transvaginal sonographic examination was performed as indicated by examination type. FINDINGS: UTERUS: Rounded hypoechoic 2.9 cm area within posterior wall myometrium, likely subserosal leiomyoma. Uterus size: 8.9 x 5.5 6.0 cm ENDOMETRIUM: Normal homogeneous appearance. Endometrial thickness: 5 mm RIGHT OVARY: Normal size and appearance. Blood flow present within ovary was not evaluated.. . Ovary size: 2.3 x 2.1 x 1.6 cm LEFT OVARY: Normal size and appearance. Duplex Doppler demonstrates normal waveform and flow; resistive index 0.6. Ovary size: 3.5 x 1.6 x 1.6 cm CUL-DE-SAC: Unremarkable. No significant free fluid. BLADDER: Unremarkable. OTHER: None. US/US pelvis IMPRESSION: 1. Small posterior uterine mass favoring a subserosal leiomyoma. 2. No ultrasound evidence of vaginal prolapse. Electronically authenticated by: ARISTEO GÓMEZ Date: 03/11/2024 13:55
--- OUTSIDE RECORDS SUMMARY | 2024-03-11 13:10 | XMS_ITS | CCD ---
Author Organization [facility] Care Team Providers Care Business Change Manager Name Role Phone Shazia Coker Primary Care Physician [phone] Shazia Coker Attending Unavailable Patric, MEXICAN FOOD MAKER HANDAdriana Mcclain Attending Unavailable Patric, M[employer] FOOD MAKER HAND Shazia L Admitting Unavailable Patric, MEXICAN FOOD MAKER HAND Shazia L Admitting Unavailable Patric, MEXICAN FOOD MAKER HAND Shazia Mcclain Attending Unavailable Patric, FRANCIS Mcclain Attending Unavailable Patric, FRANCIS Mcclain Attending Unavailable Patric, FRANCIS Mcclain Attending Unavailable MD Antoine Corral Primary Care Provider [phone] MD Justus Toscano Attending Provider Justus Toscano Attending Unavailable Justus Toscano Admitting Unavailable Antoine Corral Primary Care Unavailable Shazia Coker MD Unavailable MARGARITA DYER Attending Unavailable PATRIC, SHAZIA Referring Unavailable GERALDINE MOISE Attending Unavailable PATRIC, SHAZIA Referring Unavailable RAMELISEO TAN Attending Unavailable MARGARITA DYER Attending Unavailable Patric, Shazia Mcclain Attending Unavailable Patric, Shazia Mcclain Attending Unavailable Allergies Allergy Classification Reported Allergen(s) Allergy Type Date of Onset Reaction(s) Facility (6 sources) Doxycycline; Translations: [doxycycline] Drug Allergy 11-28-19 17 Dizziness (finding), Dizziness, Hives [facility] (5 sources) methazolAMIDE; Translations: [methazolamide] Drug Allergy 04-17-19 24 Weal (disorder) [facility] (6 sources) oxyCODONE; Translations: [oxycodone] Drug Allergy 03-24-19 22 Loss of consciousness (finding), Rash [facility] (2 sources) Acetaminophen / oxyCODONE Drug Allergy 04-17-19 24 Anaphylaxis [facility] (2 sources) doxyclin Allergy to substance 04-17-19 24 Dizziness [facility] (3 sources) Acetaminophen / oxyCODONE Drug Allergy 11-28-19 17 Anaphylaxis, Dizziness [facility] (3 sources) Ibuprofen Drug Allergy 11-28-19 17 Anaphylaxis [facility] (3 sources) methazolAMIDE Drug Allergy 10-21-19 19 Rash [facility] Healthcare Medications Current Medications Medication Drug Class(es) Dates Sig (Normalized) Sig (Original) cholecalciferol 0.025 mg oral capsule (4 sources) Vitamin D Start: 08-29-2023 take 25 ug by mouth once daily Cholecalciferol (Vitamin D3) Active 25 MCG PO Daily August 29, 2023 12:00am take 1 tablet by mouth once wilfredo y cholecalciferol (Vitamin D-3) 25 MCG (1000 UT) tablet Take 1,000 Units by mouth Daily Active fluticasone propionate 0.05 mg/actuat metered dose nasal spray (4 sources) Corticosteroid Start: 07-10-2023 End: 07-09-2024 take 2 spray(s) nasal route once daily fluticasone (Flonase) 50 MCG/ACT nasal spray Indications: Nasal polyp Administer 2 sprays into each nostril Daily Shake gently. Before first use, prime pump. After use, clean tip and replace cap. 48 g 3 07/10/2023 07/09/2024 Active loratadine 10 mg oral tablet (5 sources) Start: 06-18-2023 take 1 tablet by mouth once daily Loratadine (Claritin) 10 mg tablet Active 10 MG PO Daily August 29, 2023 12:00am rimegepant 75 mg disintegrating oral tablet (4 sources) Start: 07-03-2023 take 1 tablet by mouth once Nurtec ODT 75 mg oral tablet, disintegrating 75 mg = 1 tab(s), Oral, Once, # 8 tab(s), Refills(s) 0, Samples 8 Start Date: 07/03/23 Status: Ordered traMADol hydrochloride 50 mg oral tablet (5 sources) Opioid Agonist Start: 08-29-2023 Tramadol Active MG PO August 29, 2023 12:00am Start: 06-18-2023 take 1 tablet by edward th every twelve hours as needed for pain traMADOL 50 mg Tab 50 mg = 1 tab(s), Oral, q12hr, PRN for pain, # 30 tab(s), Refills(s) 0, Pharmacy: [facility]/pharmacy #[id number], 150, cm, 06/18/23 13:20:00 EDT, Height/Length Dosing, 75.8, kg, 06/18/23 13:20:00 EDT, Weight Dosing Start Date: 06/18/23 Status: Ordered take 1 tablet by edward th every six hours as needed for pain traMADol (Ultram) 50 MG tablet Take 50 mg by mouth every 6 (six) hours if needed for severe pain Active Completed/Discontinued Medications Medication Drug Class(es) Dates Sig (Normalized) Sig (Original) Ciprofloxacin (2 sources) Quinolone Antimicrobial Start: 04-17-2023 End: 08-29-2023 Ciprofloxacin Hcl (Ciloxan) 0.3 % ointment Discontinued 1 APPLIC EYE-LEFT Three times daily 3.5 April 17, 2023 1:00am August 29, 2023 1:16pm Start: 04-17-2023 Ciprofloxacin Hcl (Ciloxan) 0.3 % ointment Active 1 APPLIC EYE-LEFT Three times daily 3.5 April 17, 2023 1:00am Problems Active Problems Problem Classification Problem Date Documented Date Episodic/Chronic Conditions associated with dizziness or vertigo (3 sources) Meniere's disease; Translations: [Meniere's disease, unspecified ear] Onset: 12-28-2020 07-09-2023 Chronic Esophageal disorders (5 sources) Gastroesophageal reflux disease; Translations: [Gastro-esophageal reflux disease without esophagitis] Onset: 03-24-2021 04-17-2023 Chronic Gastroduodenal ulcer (except hemorrhage) (3 sources) Peptic ulcer; Translations: [Peptic ulcer, site unspecified, unspecified as acute or chronic, without hemorrhage or perforation] Onset: 11-08-2017 07-09-2023 Chronic Genitourinary symptoms and ill-defined conditions (1 source) Urinary incontinence 07-03-2023 Chronic Headache; including migraine (7 sources) Migraine; Translations: [Basilar migraine] Onset: 07-21-2020 07-03-2023 Chronic Malaise and fatigue (1 source) Fatigue 07-03-2023 Episodic Other ear and sense organ disorders (3 sources) Mixed conductive and sensorineural hearing loss of right ear; Translations: [Mixed conductive and sensorineural hearing loss, unilateral, right ear, with unrestricted hearing on the contralateral side] Onset: 12-28-2020 07-09-2023 Chronic Other ear and sense organ disorders (3 sources) Sensorineural hearing loss; Translations: [Unspecified sensorineural hearing loss] Onset: 12-28-2020 07-09-2023 Chronic Other non-traumatic joint disorders (1 source) Hip pain 06-18-2023 Episodic Other skin disorders (1 source) Changes in skin texture 07-03-2023 Episodic Other upper respiratory disease (2 sources) Seasonal allergic rhinitis; Translations: [Other seasonal allergic rhinitis] 04-17-2023 Chronic Other upper respiratory disease (3 sources) Allergic rhinitis; Translations: [Allergic rhinitis, unspecified] Onset: 02-12-2018 07-09-2023 Chronic Other upper respiratory disease (3 sources) Allergic rhinitis due to animal hair and dander; Translations: [Allergic rhinitis due to animal (cat) (dog) hair and dander] Onset: 12-28-2020 07-09-2023 Chronic Other upper respiratory disease (3 sources) Seasonal allergy; Translations: [Other seasonal allergic rhinitis] Onset: 11-08-2017 07-09-2023 Chronic Other upper respiratory disease (6 sources) Polyp of nasal cavity and/or nasal sinus; Translations: [Nasal polyp, unspecified] Onset: 12-28-2020 07-03-2023 Episodic Other upper respiratory infections (6 sources) Chronic ethmoidal sinusitis; Translations: [Chronic ethmoidal sinusitis] Onset: 12-28-2020 07-09-2023 Chronic Spondylosis; intervertebral disc disorders; other back problems (3 sources) Disorder of lumbar disc; Translations: [Unspecified thoracic, thoracolumbar and lumbosacral intervertebral disc disorder] Onset: 11-08-2017 07-09-2023 Chronic Spondylosis; intervertebral disc disorders; other back problems (1 source) Backache 06-18-2023 Episodic Unclassified (1 source) Cancer cervix screening status 07-03-2023 Unclassified (4 sources) Patient encounter status 06-18-2023 Unclassified (1 source) Low back pain, unspecified; Translations: [Low back pain, unspecified] Onset: 08-28-2023 Past or Other Problems Problem Classification Problem Date Documented Da te Episodic/Chronic Acute bronchitis (3 sources) Acute bronchitis; Translations: [Acute bronchitis, unspecified] Onset: 03-14-2022 07-09-2023 Episodic Allergic reactions (3 sources) Allergy to mold; Translations: [Other nonmedicinal substance allergy status] Onset: 12-28-2020 07-09-2023 Episodic Conditions associated with dizziness or vertigo (6 sources) Labyrinthine disorder; Translations: [Unspecified disorder of vestibular function, unspecified ear] Onset: 12-28-2020 07-09-2023 Episodic Other and unspecified benign neoplasm (3 sources) Neoplasm of accessory sinus; 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, nasal cavity and accessory sinuses] Onset: 12-28-2020 07-09-2023 Episodic Other diseases of kidney and ureters (3 sources) Abnormal renal function; Translations: [Disorder of kidney and ureter, unspecified] Onset: 12-28-2020 07-09-2023 Episodic Other ear and sense organ disorders (3 sources) Impacted cerumen; Translations: [Impacted cerumen, unspecified ear] Onset: 12-28-2020 07-09-2023 Episodic Other ear and sense organ disorders (3 sources) Tinnitus; Translations: [Tinnitus, unspecified ear] Onset: 12-28-2020 07-09-2023 Episodic Other nutritional; endocrine; and metabolic disorders (3 sources) Overweight; Translations: [Overweight] Onset: 12-28-2020 07-09-2023 Episodic Other skin disorders (3 sources) Keratosis pilaris; Translations: [Other specified epidermal thickening] Onset: 12-28-2020 07-09-2023 Episodic Other upper respiratory disease (3 sources) Deviated nasal septum; Translations: [Deviated nasal septum] Onset: 12-28-2020 07-09-2023 Episodic Other upper respiratory disease (3 sources) Polyp of ethmoidal sinus; Translations: [Other polyp of sinus] Onset: 12-28-2020 07-09-2023 Episodic Other upper respiratory disease (3 sources) Hypertrophy of nasal turbinates; Translations: [Hypertrophy of nasal turbinates] Onset: 12-28-2020 07-09-2023 Episodic Other upper respiratory disease (3 sources) Nasal congestion; Translations: [Nasal congestion] Onset: 12-28-2020 07-09-2023 Episodic Results Test Name Value Interpretation Reference Range Facility Family Medicine Office/Clini c Noteon 03-05-2024 Family Medicine Office/Clinic Note Family Medicine Office/Clinic Note HPI Staff Vikki is a 53 year old female presenting for acute visit Onset: 2-3 months ago Pt feels like area is getting bigger and having intermittent pelvic cramping. Denies any vaginal discharge or pain pt is sexually active denies any pain with intercourse History of Present Illness pt presents today c/o feeling a bulge in vaginal canal Review of Systems PHQ Score Initial Depression Screen Score: 0 SCORE Physical Exam Vitals & Measurements HR: 80(Peripheral) RR: 16 BP: 122/74 HT: 59 in HT: 150 cm WT: 79.95 kg WT: 176.259 lb BMI: 35.53 General: alert, no acute distress ENMT: oral mucosa moist, no pharyngeal erythema or exudate Cardiovascular: regular rate and rhythm, normal peripheral perfusion Respiratory: Lungs CTA, respirations non labored Extremities: no deformity, no trauma Neurological: oriented x 4, LOC appropriate for age, CN II-XII intact, motor strength equal & normal bilaterally, speech normal no prolapse noted outside of vagina. with speculum cervix is easily visualized and when she bears down it does move forward but it does not prolapse to or past vaginal opening. Assessment/Plan 1. Urinary incontinence in female (R32: Unspecified urinary incontinence) still c/o incontinence. may consider referral to urology. 2. Cervical prolapse (N81.2: Incomplete uterovaginal prolapse) cervix moves down when bearing down, but does not prolapse to or past vaginal opening. will order pelvic u/s for further evaluation 3. BMI 35.0-35.9,adult (Z68.35: Body mass index [BMI] 35.0-35.9, adult) BMI education given 4. Non-smoker (Z78.9: Other specified health status) continue not smoking Follow-up No qualifying data available Problem List/Past Medical History Ongoing Back pain with right-sided sciatica Breast cancer screening by mammogram Cervical prolapse Change of, skin texture Fatigue Herniation of intervertebral disc between L4 and L5 Migraine Nasal polyps Pain in right kerr Right hip pain Screening for cervical cancer Screening for hyperlipidemia Screening for thyroid disorder Swelling of right lower extremity Urinary incontinence in female Well woman exam Historical No qualifying data Procedure/Surgical History Cerclage, Surgery, Surgery, Surgery. Medications BACLOFEN 10 MG TABLET, 0 loratadine, 10 mg, Oral, Daily Nurtec ODT 75 mg oral tablet, disintegrating, 75 mg= 1 tab(s), Oral, Once traMADOL 50 mg Tab, 50 mg= 1 tab(s), Oral, q12hr, PRN Allergies oxyCODONE (Loss of consciousness) doxycycline (Dizziness) methazolAMIDE (Hives) Social History Alcohol Never., 03/04/2024 Substance Abuse Never., 03/04/2024 Tobacco Never (less than 100 in lifetime) Tobacco Use:., 03/04/2024 Family History Cancer: Grandparent. Diabetes mellitus type 2: Father. [facility] Comment on above: Result Comment: Elec tronically Signed By: Shazia Kerr\.br\Date and Time Signed: 03/05/24 16:00 EST Ambulatory Visit Summaryon 0 11-07-2023 Ambulatory Visit Summary Ambulatory Visit Summary POWERVIKKI BOO L :1970 Visit Date:11/07/2023 Ambulatory Visit Instructions Your Diagnosis Non-smoker BMI 35.0-35.9,adult Class 1 obesity due to excess calories in adult Your Care Team Attending Physician - Shazia Kerr Primary Care Physician - Shazia Kerr This Is Your Medications List Misc Prescription (BACLOFEN 10 MG TABLET) loratadine rimegepant (Nurtec ODT 75 mg oral tablet, disintegrating) tramadol (traMADOL 50 mg Tab) Procedures Performed Cerclage, Surgery, Surgery, Surgery. Discharge Vitals Temperature (Temporal Artery) 36.6 ?C Heart Rate (Peripheral) 70 Respiratory Rate 18 Blood Pressure 116/78 Height 150.0 cm Height 59 in Weight 78.8 kg Weight 173.36 lb BMI 35.02 Medications What How Much When Why Instructions Unchanged loratadine 10 Milligram By Mouth Every day Unchanged Misc Prescription (BACLOFEN 10 MG TABLET) 0 Unchanged rimegepant (Nurtec ODT 75 mg oral tablet, disintegrating) 1 Tablets By Mouth Once Unchanged tramadol (traMADOL 50 mg Tab) 1 Tablets By Mouth Every 12 hours as needed for for pain Breast cancer screening by mammogram Back pain with right-sided sciatica Right hip pain BMI 33.0-33.9,adult Non-smoker Allergies oxyCODONE (Loss of consciousness) doxycycline (Dizziness) methazolAMIDE (Hives) Problems Ongoing - Any problem that you are currently receiving treatment for. Back pain with right-sided sciatica Breast cancer screening by mammogram Change of, skin texture Fatigue Herniation of intervertebral disc between L4 and L5 Migraine Nasal polyps Right hip pain Screening for cervical cancer Screening for hyperlipidemia Screening for thyroid disorder Urinary incontinence in female Well woman exam Patient Survey You may receive a survey via text or e-mail asking about your office visit. Please share your experience with us by completing your survey. We appreciate your feedback and thank you for choosing us for your care. [facility] Family Medicine Office/Clini c Noteon 11-07-2023 Family Medicine Office/Clinic Note Family Medicine Office/Clinic Note HPI Staff Vikki is a 53 year old female presenting with Onset: 2 days ago Location: right lower leg (kerr) Duration: Characteristics:_ throbbing Aggravated by: Relieved by: Aspercreme last night it did help until it wore off Timing:best in the morning some nights the pain will wake her up Associated Symptoms:_ She has a sault ste[place] she said it looks like her vein Towards the end of the day it gets allot worse She has Bursitis Right hip) in pain management... Last appt was September she goes back in November. They gave her 2 shots for her Bursitis History of Present Illness pt presents today with c/o pain and swelling of right kerr. the pain has woken her up the last 2 nights Review of Systems PHQ Score Initial Depression Screen Score: 0 SCORE Physical Exam Vitals & Measurements T: 36.6 ?C(Temporal Artery) HR: 70(Peripheral) RR: 18 BP: 116/78 SpO2: 99% HT: 59 in HT: 150.0 cm WT: 78.8 kg WT: 173.36 lb BMI: 35.02 General: alert, no acute distress ENMT: oral mucosa moist, no pharyngeal erythema or exudate Cardiovascular: regular rate and rhythm, normal peripheral perfusion Respiratory: Lungs CTA, respirations non labored Extremities: no deformity, no trauma Neurological: oriented x 4, LOC appropriate for age, CN II-XII intact, motor strength equal & normal bilaterally, speech normal right kerr slightly swollen and tender to touch Assessment/Plan 1. Pain in right kerr (M79.661: Pain in right lower leg) pt has swollen painful area on right kerr. order for Doppler u/s provided and faxed to [facility]. if no DVT pt will call vein center for further evaluation of varicose veins 2. Swelling of right lower extremity (M79.89: Other specified soft tissue disorders) see above 3. BMI 35.0-35.9,adult (Z68.35: Body mass index [BMI] 35.0-35.9, adult) BMI education 4. Class 1 obesity due to excess calories in adult (E66.09: Other obesity due to excess calories) see above 5. Non-smoker (Z78.9: Other specified health status) continue not smoking Follow-up No qualifying data available Problem List/Past Medical History Ongoing Back pain with right-sided sciatica Breast cancer screening by mammogram Change of, skin texture Fatigue Herniation of intervertebral disc between L4 and L5 Migraine Nasal polyps Pain in right kerr Right hip pain Screening for cervical cancer Screening for hyperlipidemia Screening for thyroid disorder Swelling of right lower extremity Urinary incontinence in female Well woman exam Historical No qualifying data Procedure/Surgical History Cerclage, Surgery, Surgery, Surgery. Medications BACLOFEN 10 MG TABLET, 0 loratadine, 10 mg, Oral, Daily Nurtec ODT 75 mg oral tablet, disintegrating, 75 mg= 1 tab(s), Oral, Once traMADOL 50 mg Tab, 50 mg= 1 tab(s), Oral, q12hr, PRN Allergies oxyCODONE (Loss of consciousness) doxycycline (Dizziness) methazolAMIDE (Hives) Social History Tobacco Never (less than 100 in lifetime) Tobacco Use:. Never Smokeless Tobacco Use:. Cigarettes, Household tobacco concerns: No., 11/07/2023 Family History Cancer: Grandparent. Diabetes mellitus type 2: Father. Normal [facility] Comment on above: Result Comment: Elec tronically Signed By: Shazia Kerr\.br\Date and Time Signed: 11/07/23 15:45 EDT XR lumbar spine 6V w bending on 08-28-2023 XR lumbar spine 6V w bending [facility] [place] [address] [place] [id number] XRay Report Signed Patient: Vikki Power MR#: [id number] [birth year] : 1970 Acct:[id number] Age/Sex: 52 / F ADM Date: 08/28/23 Loc: XD Room: Type: [facility] [address] Attending Dr: Justus Toscano MD Copies to: [...] Brandi Weinstein M.D.08/28/2023 4:52 PM Dictation Location: [place] [address] Transcribed By: [facility] 08/28/231651 Dictated By: Brandi Weinstein MD 08/28/23 164 Signed By: 08/28/23 165 Normal [facility] Physician Referralon 024 Physician Referral [id number]#1.00TIFF Normal [facility] Consultation Noteon 07-10-19 Consultation Note [id number] #1.00TIFF Normal [facility] RAD - MRI Reporton RAD - MRI Report [id number] #1.00TIFF Normal [facility] Reminderson 07-10-2023 Reminders - From: hSazia Kerr To: [facility] - Clinical; Sent: 07/10/2023 08:34:02 EDT Show [...] ) Patient informed and voiced understanding. Normal [facility] PAP [id number] 07-09-2023 C. trachomatis rRNA STEFFANIE+probe Ql (Cvx) Negative Invalid Interpretation Code Negative [facility] Comment on above: Performed By: #### 1 [id number] #### [facility] Laboratory [address] [place] [address] Cytology report Cyto stain Doc (Cvx/Vag) Note Invalid Interpretation Code [facility] Comment on above: Result Comment: TEST S RESULT FLAG UNITS REF RANGE LAB Clinician Provided Cytology Information Source.............Cervix No. of containers..01 ThinPrep Vial DIAGNOSIS: 01 NEGATIVE FOR INTRAEPITHELIAL LESION OR MALIGNANCY. Specimen adequacy: 01 Satisfactory for evaluation. Endocervical and/or squamous metaplastic cells (endocervical component) are present. Performed by: 01 Kylah Lee, Under Cutter (ASC) . 01 Note: Note 01 The Pap [...] <-Panic Low,>-Panic High,A-Abnormal,AA-Critical Abnormal Performed at: [address] [address] Callie Cardona MD, Performed By: #### 1 [id number] #### [facility] [address] [place] [address] HPV 16+18+31+33+35+39+45+ 51+52+56+58+59+66+68 DNA Probe+sig amp Ql (Cvx) Negative Invalid Interpretation Code Negative [facility] Comment on above: Result Comment: This nucleic acid amplification test detects fourteen high-risk HPV types (16,18,31,33,35,39,45,51,52,56,58,59,66,68) without differentiation. Performed By: #### 1 [id number] #### [facility] [address] [place] [address] N. gonorrhoeae rRNA STEFFANIE+probe Ql (Cvx) Negative Invalid Interpretation Code Negative [facility] Comment on above: Performed By: #### 1 [id number] #### [facility] [address] [place] [address] T. vaginalis rRNA STEFFANIE+probe Ql (Unsp spec) Negative Invalid Interpretation Code Negative [facility] Comment on above: Result Comment: Perf ormed at: WB [facility] [address] [facility] [place] [id number] MD Brendan Ledesma Performed at: =G [facility] [address] [place], [place] [id number] MD Brendan Ledesma Performed By: #### 1 [id number] #### [facility] [address] [place] [address] Outside Mammographyon 2023 Outside Mammography [id number]# 1.00TIFF Normal [facility] Reminderson 07-04-2023 Reminders - From: Shazia [...] 25.0 % (14.0 - 50.0) 07/03/2023 9:09 Marathon Auto 7.4 % (4.0 - 14.0) 07/03/2023 9:09 Eos Auto 5.4 % (0.0 - 8.0) 07/03/2023 9:09 Basophil Auto 1.1 % (0.0 - 2.0) 07/03/2023 9:09 Neutro Absolute 5.0 E9/L (2.0 - 7.5) 07/03/2023 9:09 Lymph Absolute 2.1 E9/L (1.0 - 4.0) 07/03/2023 9:09 Marathon Absolute 0.6 E9/L (0.2 - 1.0) 07/03/2023 [...] 5.60) Patient informed and voiced understanding. Normal [facility] CBC w/ Auto Diffon 4 Basophils/100 WBC (Bld) 1.1 % Normal 0.0-2.0 [facility] Comment on above: Performed By: #### 2 [id number] #### [facility] [address] [place] [id number] Basophils/Leukocytes Auto (Bld) [Pure # fraction] 0.1 E9/L Normal 0.0-0.2 [facility] Comment on above: Performed By: #### 2 [id number] #### [facility] [address] [place] [address] Eosinophils (Bld) [#/Vol] 0.4 E9/L Normal 0.0-0.5 [facility] Comment on above: Performed By: #### 2 [id number] #### [facility] [address] [place] [address] Eosinophils/100 WBC (Bld) 5.4 % Normal 0.0-8.0 [facility] Comment on above: Performed By: #### 2 [id number] #### [facility] [address] [place] [address] Erythrocyte distribution width (RBC) [Ratio] 15.6 % High 10.9-14.2 [facility] Comment on above: Performed By: #### 2 [id number] #### [facility] [address] [place] [address] Hematocrit (Bld) [Volume fraction] 40.5 % Normal 34.0-46.0 [facility] Comment on above: Performed By: #### 2 [id number] #### [facility] [address] [place] [address] Hemoglobin (Bld) [Mass/Vol] 13.5 g/dL Normal 12.0-16.0 [facility] Comment on above: Performed By: #### 2 [id number] #### [facility] [address] [place] [address] Lymphocytes (Bld) [#/Vol] 2.1 E9/L Normal 1.0-4.0 [facility] Comment on above: Performed By: #### 2 [id number] #### [facility] [address] [place] [address] Lymphocytes/100 WBC (Bld) 25.0 % Normal 14.0-50.0 [facility] Comment on above: Performed By: #### 2 [id number] #### [facility] [address] [place] [address] MCH (RBC) [Entitic mass] 29.1 pg Normal 27.0-34.0 [facility] Comment on above: Performed By: #### 2 [id number] #### [facility] [address] [place] [address] MCHC (RBC) [Mass/Vol] 33.2 g/dL Normal 31.4-36.0 [facility] Comment on above: Performed By: #### 2 [id number] #### [facility] [address] [place] [address] MCV (RBC) [Entitic vol] 87.5 fL Normal 80.0-100.0 [facility] Comment on above: Performed By: #### 2 [id number] #### [facility] [address] [place] [address] Monocytes (Bld) [#/Vol] 0.6 E9/L Normal 0.2-1.0 [facility] Comment on above: Performed By: #### 2 [id number] #### [facility] [address] [place] [address] Neutrophils (Bld) [#/Vol] 5.0 E9/L Normal 2.0-7.5 [facility] Comment on above: Performed By: #### 2 [id number] #### [facility] [address] [place] [address] Neutrophils/100 WBC (Bld) 61.1 % Normal 36.0-75.0 [facility] Comment on above: Performed By: #### 2 [id number] #### [facility] [address] [place] [address] Platelet mean volume (Bld) [Entitic vol] 8.1 fL Normal 6.4-10.8 [facility] Comment on above: Performed By: #### 2 [id number] #### [facility] [address] [place] [address] Platelets (Bld) [#/Vol] 338.0 E9/L Normal 150.0-500.0 [facility] Comment on above: Performed By: #### 2 [id number] #### [facility] [address] [place] [address] RBC (Bld) [#/Vol] 4.6 E12/L Normal 4.3-5.9 [facility] Comment on above: Performed By: #### 2 [id number] #### [facility] [address] [place] [address] WBC corrected for nucl RBC Auto (Bld) [#/Vol] 8.2 E9/L Normal 4.0-11.0 [facility] Comment on above: Performed By: #### 2 [id number] #### [facility] [address] [place] [address] CHEMISTRYOrdered By: SYSTEM SYSTEM on 07-03-2023 Albumin [...] 07-03-2023 Albumin [Mass/Vol] 4.2 g/dL Normal 3.3-5.0 [facility] Comment on above: Performed By: #### 2 [id number] #### [facility] [address] [place] [address] Albumin/Globulin (S) [Mass conc ratio] 1.3 Normal 1.1-2.2 [facility] Comment on above: Performed By: #### 2 [id number] #### [facility] [address] [place] [address] ALP [Catalytic activity/Vol] 96 Int._Unit/L Normal 21-98 [facility] Comment on above: Performed By: #### 2 [id number] #### [facility] [address] [place] [address] ALT No additional P-5'-P [Catalytic activity/Vol] 20 Int._Unit/L Normal 6-46 [facility] Comment on above: Performed By: #### 2 [id number] #### [facility] [address] [place] [address] Anion gap [Moles/Vol] 9 mmol/L Normal 6-16 [facility] Comment on above: Performed By: #### 2 [id number] #### [facility] [address] [place] [address] AST [Catalytic activity/Vol] 20 Int._Unit/L Normal 5-43 [facility] Comment on above: Performed By: #### 2 [id number] #### [facility] [address] [place] [address] Bilirubin [Mass/Vol] 0.4 mg/dL Normal 0.0-1.1 [facility] Comment on above: Performed By: #### 2 [id number] #### [facility] [address] [place] [address] Calcium [Mass/Vol] 9.2 mg/dL Normal 8.9-11.1 [facility] Comment on above: Performed By: #### 2 [id number] #### [facility] [address] [place] [address] Chloride [Moles/Vol] 105 mmol/L Normal 101-111 [facility] Comment on above: Performed By: #### 2 [id number] #### [facility] [address] [place] [address] CO2 [Moles/Vol] 26 mmol/L Normal 21-31 [facility] Comment on above: Performed By: #### 2 [id number] #### [facility] [address] [place] [address] Creatinine [Mass/Vol] 0.7 mg/dL Normal 0.5-1.3 [facility] Comment on above: Performed By: #### 2 [id number] #### [facility] [address] [place] [address] Globulin (S) [Mass/Vol] 3.3 g/dL Normal 1.4-4.0 [facility] Comment on above: Performed By: #### 2 318574 #### [facility] [address] [place] [address] Glucose [Mass/Vol] 81 mg/dL Normal 55-199 [facility] Comment on above: Performed By: #### 2 806086 #### [facility] [address] [place] [address] Potassium [Moles/Vol] 4.1 mmol/L Normal 3.5-5.3 [facility] Comment on above: Performed By: #### 2 857398 #### [facility] [address] [place] [address] Protein [Mass/Vol] 7.5 g/dL Normal 6.0-7.8 [facility] Comment on above: Performed By: #### 2 035039 #### [facility] [address] [place] [address] Sodium [Moles/Vol] 136 mmol/L Normal 135-145 [facility] Comment on above: Performed By: #### 2 815130 #### [facility] [address] [place] [address] Urea nitrogen [Mass/Vol] 9 mg/dL Normal 5-21 [facility] Comment on above: Performed By: #### 2 743547 #### [facility] [address] [place] [address] Urea nitrogen/Creatinine [Mass ratio] 13 No Units Normal 10-20 [facility] Comment on above: Performed By: #### 2 [id number] #### [facility] [address] [place] [address] Family Medicine Office/Clini c Noteon 07-03-2023 Family Medicine Office/Clinic Note HPI Staff Gill is a 52 year old female presenting for well woman Woman check up: Last pap: 2020 Last Suze: 2020 Results of lap pap: normal but in 2019 had hyperplasia Where was it done: [facility] hx: # of pregnancies.2.. abortions.0.. live births.2.. [...] masses. Pap obtained Neurologic: Grossly normal Skin: [place], moist, no tenting Lymph Nodes: No cervical adenopathy, nodes normal Mental Status: Alert and oriented x3. Normal mood and affect Assessment/Plan 1. Well woman exam (Z01.419: Encounter for gynecological examination (general) (routine) without abnormal findings) pt presents today for well woman exam. BSE discussed. mammogram done at [facility]. pap obtained without difficulty. pt scheduled for MRI of back next weeks Ordered: CBC w/ Auto Diff Comprehensive Metabolic Panel Lab Specimen Collect [id number] Lipid Panel [address]AP [id number] CT/GC/Trich HPV rflx Genotype PAP [id number] CT/GC/Trich HPV rflx Genotype Thyroid Stimulating Hormone 2. Screening for hyperlipidemia (Z13.220: Encounter for screening for lipoid disorders) lipid panel drawn Ordered: CBC w/ Auto Diff Comprehensive Metabolic Panel Lab Specimen Collect [id number] Lipid Panel PAP [id number] CT/GC/Trich HPV rflx Genotype Thyroid Stimulating Hormone 3. Screening for thyroid disorder (Z13.29: Encounter for screening for other suspected endocrine disorder) TSH drawn Ordered: CBC w/ Auto Diff Comprehensive Metabolic Panel Lab Specimen Collect [id number] Lipid Panel PAP [id number] CT/GC/Trich HPV rflx Genotype Thyroid Stimulating Hormone 4. Fatigue (R53.83: Other fatigue) pt c/o fatigue will check CBC and TSH Ordered: CBC w/ Auto Diff Comprehensive Metabolic Panel Lab Specimen Collect [id number] Lipid Panel PAP [id number] CT/GC/Trich HPV rflx Genotype Thyroid Stimulating Hormone 5. Change of, skin texture (R23.4: Changes in skin texture) area on left thigh is dark, hard and has changed in texture. will refer to [facility] [place] [facility] [place] Lab Specimen Collect [id number]/GC/Trich HPV rflx Genotype 6. Urinary incontinence in female (R32: Unspecified urinary incontinence) c/o worsening urinary incontinence pt requesting [place] in [place]. [place] [facility] [place] Ref[place] PAP [id number] CT/GC/Trich HPV rflx Genotype 7. Nasal polyps (J33.9: Nasal polyp, unspecified) pt had nasal polyps removed in 2019 and 2020. was supposed to follow up with ENT annually but has not done so since moving to [place], will refer to Dr. Dyer Ordered[place] [facility] [place]ulatory [place]erral PAP [...] to e (more content not included)... Normal [facility] Comment on above: Result Comment: Elec [...] 07-03-2023 Cholesterol [Mass/Vol] 143 mg/dL Normal 120-200 [facility] Comment on above: Performed By: #### 2 [id number] #### [facility] [address] [place] [address] Cholesterol in HDL [Mass/Vol] 60 mg/dL Invalid Interpretation Code [facility] Comment on above: Result Comment: '>= 60 LOW RISK' '<= 40 HIGH RISK' Performed By: #### 2 [id number] #### [facility] [address] [place] [address] Cholesterol in LDL [Mass/Vol] 58 mg/dL Normal <=129 [facility] Comment on above: Performed By: #### 2 787783 #### [facility] [address] [place] [address] Cholesterol in VLDL [Mass/Vol] 31 mg/dL Normal 7-40 [facility] Comment on above: Performed By: #### 2 [id number] #### [facility] [address] [place] [address] Triglyceride [Mass/Vol] 157 mg/dL High <=149 [facility] Comment on above: Performed By: #### 2 225394 #### [facility] [address] [place] [address] PAP [id number] 07-03-2023 PAP [id number] cancel Invalid Interpretation Code [facility] Comment on above: Performed By: #### 1 [id number] #### [facility] [address] [place] [address] Gynecological Body Site ENDOCERVIX Normal [facility] Comment on above: Performed By: #### 1 [id number] #### [facility] [address] [place] [address] Gynecological Body Site CERVIX Normal [facility] Comment on above: Performed By: #### 1 [id number] #### [facility] [address] [place] [address] Physician Referralon 024 Physician Referral [id number] #1.00TIFF Normal [facility] Physician Referral [id number] #1.00TIFF Normal [facility] Physician Referral [id number] 9#1.00TIFF Normal [facility] TSHon 07-03-2023 TSH Qn 2.05 m[IU]/L Normal 0.34-5.60 [facility] Comment on above: Performed By: #### 2 [id number] #### [facility] [address] [place] [address] eGFRon 07-03-2023 eGFR 103 mL/min/1.73 m2 Normal >=59 [facility] Comment on above: Order Comment: Order added by Discern Expert. Performed By: #### 1 [id number] #### [facility] [address] [place] [address] RAD - MISCon 06-25-2023 RAD - MISC [id number]# 1.00TIFF Normal [facility] [place] [id number] #1.00TIFF Normal [facility] Ambulatory Visit Summaryon 0 06-18-2023 Ambulatory Visit Summary VIKKI POWER :1970 Visit Date:06/18/2023 Ambulatory Visit Instructions Your [...] 8:20 AM EDT With: Shazia Kerr Where: [facility] Family Medicine Aminta Normal [facility] Family Medicine Office/Clini c Noteon 06-18-2023 Family Medicine Office/Clinic Note HPI Staff Vikki is a 52 year old female presenting to [facility] Establish Care: History: Any previous diagnosis: Gerd, Migraine, Vertigo, Allergic Rhinitis , Right side Tinnitus, Chronic Sinusitis History of seeing any specialist: ENT When was your last doctors visit: Last provider: new to area Any recent labs: nothing in the last year Health Maintenance UTD: Colonoscopy: 2 years ago, removed one polyup everything else was normal Mammogram: 2000 normal( would like order for [facility] and go to [place]) Pelvic/Pap: 2000 normal EGD: had 2 of them had them done in [place] Current issues/complaints: Pain characteristics: Pain location: Right [...] day(s), # 21 tab(s), Refills(s) 0, Pharmacy: [facility]/pharmacy #[id number], 150, cm, 06/18/23 13:20:00 EDT, Height/Length Dosing, 75.8, kg, 06/18/23 13:20:00 EDT, Weight Dosing tramadol, 50 mg = 1 tab(s), Oral, q12hr, PRN for pain, # 30 tab(s), Refills(s) 0, Pharmacy: [facility]/pharmacy #[id number], 150, cm, 06/18/23 13:20:00 EDT, Height/Length Dosing, 75.8, kg, 06/18/23 13:20:00 EDT, Weight Dosing XR Hip 2-3 Views Right XR Spine Lumbosacral Minimum 4 Views 2. Right hip pain (M25.551: Pain in right hip) x ray order provided will go to [facility] Ordered: methylPREDNISolone, = 1 packet(s), Oral, As Directed, as directed on package labeling, X 6 day(s), # 21 tab(s), Refills(s) 0, [id number] 150, cm, 06/18/23 13:20:00 EDT, Height/Length Dosing, 75.8, kg, 06/18/23 13:20:00 EDT, Weight Dosing tramadol, 50 mg = 1 tab(s), Oral, q12hr, PRN for pain, # 30 tab(s), Refills(s) 0, [facility] day(s), # 21 tab(s), Refills(s) 0, Pharmacy: [facility]/pharmacy #[id number], 150, cm, 06/18/23 13:20:00 EDT, Height/Length Dosing, 75.8, kg, 06/18/23 13:20:00 EDT, Weight Dosing tramadol, 50 mg = 1 tab(s), Oral, q12hr, PRN for pain, # 30 tab(s), Refills(s) 0, Pharmacy: [facility]/pharmacy #[id number], 150, cm, 06/18/23 13:20:00 EDT, Height/Length Dosing, 75.8, kg, 06/18/23 13:20:00 EDT, Weight Dosing MA Mamm Screen w/CAD if perf and 3D [place] 4. BMI 33.0-33.9,adult (Z68.33: Body mass index [BMI] 33.0-33.9, adult) BMI education complete Ordered: methylPREDNISolone, = 1 packet(s), Oral, As Directed, as directed on package labeling, X 6 day(s), # 21 tab(s), Refills(s) 0, Pharmacy: [facility]/pharmacy #[id number], 150, cm, 06/18/23 13:20:00 EDT, Height/Length Dosing, 75.8, kg, 06/18/23 13:20:00 EDT, Weight Dosing tramadol, 50 mg = 1 tab(s), Oral, q12hr, PRN for pain, (more content not included)... Normal [facility] Comment on above: Result Comment: Elec tronically Signed By: Shazia Kerr\.br\Date and Time Signed: 06/18/23 17:37 EDT Vital Signs Date Time Vital Sign Value Performing Clinician Tigist gray 12-31-2023 14:31-0500 Body height 149.9 cm Margarita Dyer MD Work Phone: [facility] 12-31-2023 14:31-0500 Body mass index (BMI) [Ratio] 35.35 kg/m2 Margarita Dyer MD Work Phone: [facility] 12-31-2023 14:31-0500 Body weight 79.38 kg Margarita Dyer MD Work Phone: [facility] 12-31-2023 14:31-0500 Diastolic blood pressure 70 mm[Hg] Margarita Dyer MD Work Phone: [facility] 12-31-2023 14:31-0500 Systolic blood pressure 104 mm[Hg] Margarita Dyer MD Work Phone: [facility] 08-29-2023 13:11040 Body height 149.86 cm MD Antoine Corral Work Phone: [facility] 08-29-2023 13:110400 Body mass index (BMI) [Ratio] 34.3 kg/m2 MD Antoine Corral Work Phone: [facility] 08-29-2023 13:11040 Body weight 77.11 kg MD Antoine Corral Work Phone: [facility] Encounters Encounter Date Encounter Type Care Provider Facility Start: 03-05-2024 End: 03-05-2024 [facility] Start: 12-31-2023 End: 12-31-2023 Patient encounter procedure Margarita Dyer MD Work Phone: [facility] Comment on above: Nasal polyp (Primary Dx) Start: 12-31-2023 End: 12-31-2023 ambulatory MARGARITA DYER Not Available Start: 12-31-2023 End: 12-31-2023 Bamboo flowsheet Margarita Dyer MD Work Phone: [facility] Start: 12-31-2023 End: 12-31-2023 Doryso flowsmai Dyer MD Work Phone: [facility] Start: 11-07-2023 End: 11-07-2023 ambulatory Shazia L Patric Facility:[facility] [place] Start: 09-16-2023 End: 09-16-2023 ambulatory ELISEO Lockett RAMBASEK Not Available Start: 08-29-2023 End: 08-29-2023 ambulatory MD Antoine Corral Work Phone: [facility] Work Phone: Start: 08-29-2023 End: 08-29-2023 Patient encounter procedure MD Antoine Corral Work Phone: [facility] Work Phone: Start: 08-28-2023 End: 08-28-2023 Patient encounter procedure MD Antoine Corral Work Phone: [facility] Work Phone: Start: 08-28-2023 End: 08-28-2023 ambulatory MD Antoine Corral Work Phone: [facility] Work Phone: Start: 07-10-2023 End: 07-10-2023 ambulatory MARGARITANICHOLE LOBATOBecky Not Available Start: 07-03-2023 End: 07-04-2023 ambulatory Shazia L Patric Facility:[facility] [place] Start: 07-03-2023 End: 07-03-2023 Lab Drop off Shazia L Patric [facility] Start: 06-18-2023 End: 06-19-2023 ambulatory [employer] Shazia L Patric Facility:[facility] [place] Start: 06-17-2023 ambulatory [employer] Shazia L Patric Facil ity:[facility] Procedures Date Procedure Procedure Detail Performing Clinician Start: 08-28-2023 X-ray of lumbar spin e, six views including bending views MD Antoine Corral Work Phone: Start: 05-12-2021 Mammography Margarita toro MD Work Phone: [facility] Comment on above: 2008 Surgery (qualifier value) Margareth di Patric Surgical procedure Shazia Schw ab Plan of Treatment Date Care Activity Detail Author Start: 10-13-2023 Influenza vaccination Influenza Vacc ine (#1) [facility] Start: 05-12-2022 Screening for malign ant neoplasm of breast Mammogram [facility] Start: 2000 Screening for malign ant neoplasm of cervix [facility] Start: 09-25-1991 Screening for malign ant neoplasm of cervix Pap Smear [facility] Start: 1970 Screening for malign ant neoplasm of colon [facility] Payers Date Payer Category Payer Medicaid [facility] [place] Member Subscriber Plan / Payer (Effective 2023-Present) Name: Vikki Power Relation to Subscriber: Self Name: Vikki Power Payer ID: Not on file Type: Not on file Address: [place] [id number] 2023 Private Health Insurance [id number] 1970 Unknown [id number] [id number]. 727 1970 Unknown [id number] 2.16.840.1.031175.3.579.2. 727 1970 Unknown [id number] 2.16.840.1.731358.3.579.2. 727 1970 Unknown [id number] [id number]. 727 1970 Unknown [id number] 2.16.840.1.855217.3.579.2. 1259 1970 Unknown [id number] 2.16.840.1.892984.3.579.2. 1259 1970 Unknown [id number] 2.16.840.1.900912.3.579.2. 1259 1970 Unknown [id number] 2.16.840.1.069592.3.579.2. 1259 1970 Unknown [id number] 2.16.840.1.768405.3.579.2. 727 1970 Unknown [id number] [id number]. 727 Social History Date Type Detail Facility Start: 07-03-2023 End: 07-09-2023 [facility] Start: 08-28-2023 Sex Assigned At Female F [facility] Start: 1970 Sex Assigned At Female F [facility] Start: 07-09-2023 Tobacco use and exposure Smokeless tobacco non-user [facility] Start: 08-28-2023 Alcoholic beverage intake Ex-drinker (finding) [facility] Start: 08-28-2023 History of Social function [facility] Start: 1970 Sex assigned at Not on file [facility] Start: 12-31-2023 Alcoholic beverage intake Lifetime non-drinker (finding) [facility] History of Present illness Narrative 12-31-2023 Margarita Dyer MD - 12/31/2023 2:30 PM EST Note Date & Type Note Facility 12-31-2023 History of Presen t illness Narrative Images from the original note were not included. Subjective Patient ID: Vikki Power is a 53 y.o. female who presents for Nasal Polyps (6 month check nasal polyps ) Pt reports no nasal obs. 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 female. Procedures A diagnostic nasal endoscopy was performed bilaterally. The endoscope was placed into the nose and a thorough inspection of internal nose including the septum skull base lateral nasal wall structures was performed. There is no polypoisis sinus drainage Family History Problem Relation Name Age of Onset AKILA disease Mother Diabetes type II Father Cancer Other Asthma Paternal Grandmother LV Asthma Mother's Sister ER Migraines Mother's Sister ER Asthma Father's Sister ID Asthma Sister NS Migraines Sister NS Asthma Sister LM Migraines Sister MG Migraines Mother's Sister MA Active Ambulatory Problems Diagnosis Date Noted Acute bronchitis 03/14/2022 Allergic rhinitis 02/12/2018 Allergic rhinitis due to animal hair and dander 12/28/2020 Allergy to mold 12/28/2020 Basilar migraine (CMS/HCC) 07/21/2020 Chronic ethmoidal sinusitis 12/28/2020 Chronic maxillary sinusitis 03/24/2021 Deviated nasal septum 12/28/2020 Disorder of intervertebral disc of lumbar spine 11/08/2017 Disorder of labyrinth 12/28/2020 Ethmoid polyps 12/28/2020 GERD (gastroesophageal reflux disease) 03/24/2021 Hypertrophy of nasal turbinates 12/28/2020 Impacted cerumen 12/28/2020 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 Keratosis pilaris 12/28/2020 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 Migraine without aura (CMS/HCC) 12/28/2020 Mixed conductive and sensorineural hearing loss of right ear 12/28/2020 Nasal congestion 12/28/2020 Overweight 12/28/2020 Peptic ulcer 11/08/2017 Renal dysfunction 12/28/2020 Seasonal allergies 11/08/2017 Sensorineural hearing loss 12/28/2020 Tinnitus 12/28/2020 Nasal polyp 12/28/2020 Vertiginous syndrome 12/28/2020 Resolved Ambulatory Problems Diagnosis Date Noted No Resolved Ambulatory Problems Past Medical History: Diagnosis Date Hearing loss Migraine (CMS/HCC) Past Surgical History: Procedure Laterality Date CERVICAL CERCLAGE CYST REMOVAL Left Hand DILATION AND CURETTAGE OF UTERUS Due to Hyperlpasia SINUS SURGERY 2019 polyp's removed & reduced turbinates SINUS SURGERY 2020 R/o cluster of polyps Allergies Allergen Reactions Ibuprofen Anaphylaxis Oxycodone-Acetaminophen Anaphylaxis and Dizziness Other Reaction(s): Unknown Doxycycline Dizziness and Hives Other Reaction(s): Other (See Comments), Unknown Dizziness Dizziness Dizziness Methazolamide Rash Oxycodone Rash Other Reaction(s): Unknown Current Outpatient Medications on File Prior to Visit Medication Sig Dispense Refill cholecalciferol (Vitamin D-3) 25 MCG (1000 UT) tablet Take 1,000 Units by mouth Daily fluticasone (Flonase) 50 MCG/ACT nasal spray Administer 2 sprays into each nostril Daily Shake gently. Before first use, prime pump. After use, clean tip and replace cap. 48 g 3 loratadine (Claritin) 10 MG tablet Take 1 tablet by mouth Daily Rimegepant Sulfate (Nurtec) 75 MG tablet dispersible Take 75 mg by mouth Daily (Patient taking differently: Take 75 mg by mouth if needed) traMADol (Ultram) 50 MG tablet Take 50 mg by mouth every 6 (six) hours if needed for severe pain No current facility-administered medications on file prior to visit. 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 Pt to bring records from her previous surgery documented in this encounter [facility] Healthcare Evaluation + Plan note 07-03-2023 Note Date & Type Note Facility 07-03-2023 Evaluation + Plan note Diagnostic Tests PendingPAP [id number] CT/GC/Trich HPV rflx Genotype 07/03/23 [facility] Evaluation note Note Date & Type Note Facility Evaluation note No assessment information availa [facility] Work Phone: Evaluation note Note Date & Type Note Facility Evaluation note Diagnosis Nasal polyp- Primary Unspecified nasal polyp documented in this encounter [facility] Healthcare Hospital course Narrative Note Date & Type Note Facility Hospital course Narrative No data available for this section [facility] Hospital Discharge instructions Note Date & Type Note Facility Hospital Discharge instructions No data available for this section [facility] Progress note Note Date & Type Note Facility Progress note No data available for this section [facility] Summary Purpose Family History Relationship Condition Age [...] August 29, 2023 End: August 29, 2023 Business Change Manager Relationship Specialty Start Date End Date Shazia Coker MD [address] [place] [id number] Referring Physician Family Medicine 07/03/23 Business Change Manager Relationship Specialty Start Date End Date Shazia Coker MD [address] [place] [id number] Referring Physician Family Medicine 07/03/23 INFORMATION SOURCE (unrecogn ized section and content) DATE CREATED AUTHOR 07/05/[address] [facility] DATE CREATED AUTHOR AUTHOR'S ORGANIZ ATION 07/06/[address] [facility] DATE CREATED AUTHOR AUTHOR'S ORGANIZ ATION 07/11/[address] [facility] DATE CREATED AUTHOR AUTHOR'S ORGANIZ ATION 09/01/2023 [facility] DATE CREATED AUTHOR AUTHOR'S ORGANIZ ATION 01/03/2024 [facility] DATE CREATED AUTHOR AUTHOR'S ORGANIZ ATION 03/07/2024 [facility] Goals (unrecognized section and content) Goals may be documented in a n alternate section Reason for Visit (unrecogniz ed section and content) Reason Comments Nasal Polyps 6 month check nasal polyps FOR RECORDS PERTAINING TO PATIENTS WHO ARE [...] BE BASED ON THE PRIMARY CLINICAL RECORDS. [employer] [facility]. provides no warranty or guarantee of the accuracy or completeness of information in this document.
== END 2024-03-11 12:50 | disposition home or self-care (01) ==
LOC: US 12:49
PROVIDERS: PCP Family Medicine; Visit Provider Nurse Practitioner
DX: R32 Unspecified urinary incontinence (principal); N18.2 Chronic kidney disease, stage 2 (mild)
CPT/HCPCS: 76856

== ENCOUNTER 2024-06-11 10:28 | Outpatient (OUT) | payer MEDICAID, SELFPAY ==
--- NOTE | 2024-06-11 11:25 | P.CN_ITS ---
Consult Note: HPI Data of Consult Patient: known to practice within the last 3 years Requesting Physician: Kenia English NP Primary Care Provider: GO DOYLE Consult Narrative Reason for consult: back pain Narrative: Bridget molina 53 year old presents for evaluation of severe low back pain. longstanding hx of low back pain >12 months secondary to mulitlevel modic changes, DDD, lumbar facet arthropathy, and stenosis. prior lumbar MRI completed 07/09/23. has completed provider guided HEP >6 weeks without benefit. pt reports significant increase in low back pain with forward flexion over the last 3 months. abeba falls/injury. pt utilizing tylenol, baclofen, and salon pas with no improvement. pain today 0/10 with sitting 10/10 with forward flexion and standing. cc:: CC: Kenia English NP Review of Systems ROS Status of ROS 10 or more systems reviewed and unremark able except as noted in history and below PFSH PFSH Social History Smoking status: Never smoker Meds Home Medications and Allergies Home Medications ?Medication ?Instructions ?Recorded ?Confirmed ?Type ibuprofen 600 mg tablet 600 mg PO Q8H PRN pain #20 t abs 01/13/23 Rx calcium phos,dibas-vitamin D3 PO QDAY 09/10/23 Histor y loratadine 10 mg tablet 10 mg PO DAILY 09/10/2308/13 History rimegepant 75 mg disintegrating mg PRN migraine headac he 09/10/23 History tablet (Nurtec ODT) methylprednisolone 4 mg tablets in 4 mg PO DAILY #21 e a 06/11/24 Rx a dose pack (Medrol (Shubham)) Allergies Allergy/AdvReac Type Severity Reaction Status Date / Time methazolamide (From Allergy Mild Unknown Verified 09/10/23 15:11 Neptazane) acetaminophen (From Percocet) Allergy Unknown unknown Verified 09/10/23 15:11 doxycycline Allergy Unknown Unknown Verified 09/10/23 15:11 oxycodone (From Percocet) Allergy Unknown Unknown Verified 09/10/23 15:11 Exam Constitutional Documenting provider has reviewed patient's vital signs: yes Common normals: no apparent distress, oriented x3, healthy appearing, alert and well nourished General appearance: cooperative HENMT Common normals: normocephalic, hearing grossly normal bilaterally and moist oral mucous membranes Head and scalp: normocephalic Eye Common normals: PERRL Pupil: PERRL Neck & C-Spine Common normals: full ROM General: normal visual inspection Chest Common normals: inspection of chest normal Respiratory Common normals: normal respiratory effort, no retractions and no use of accessory muscles Back & Pelvis Lumbar spine/lower back: ROM limited, pain with ROM and bend over test abnormal; no lumbar spinal tenderness Other: significant pain with forward flexion Neuro Common normals: oriented x3 Sensorium/orientation: alert Psych Common normals: mental status grossly normal, thought process normal, cooperative, affect normal, speech normal and activity/motor behavior normal Speech: normal speech Thought process: normal thought process Results Additional Findings Additional findings: If on a controlled substance or opioids, I have checked an OARRS report on this patient and there are no aberrancies noted in the prescribing history.??If on a controlled substance or opioid a drug screen was completed and reviewed within the last year, and if there has not been a drug screen completed we ordered one today to monitor higher risk, state monitored pain medication use. As part of providing excellent, safe, comprehensive care, the following was completed at our patient's visit: 1. A medication reconciliation and review to ensure accurate knowledge of current/active medications, including asking our patients to inform us about any [id number] medications or herbal remedies/nutritional supplements/al ternative remedies. 2. A review to specifically ensure our patients have had annual screening for screening for depression, screening for tobacco use, and screening for unhealthy alcohol use. For concerning screenings had a discussion with the patient, provided patient education, and recommended follow-up with primary care provider when appropriate. If patient noted with a risk of falling, they received education on strength, gait, and balance training to prevent future risk of falling. Portions of this note may have been carried over from the previous visit and updated as appropriate. Please note this office utilizes paper charting in addition to the electronic medical record. A list of current medications, vitals, and PMH is available there as the clinical staff outside of myself do not have access to [employer] charting during the clinic day operations. As part of providing quality comprehensive care the current medications, vitals, and PMH were reviewed in the paper chart. Assessment and Plan Assessment and Plan (1) Vertebrogenic low back pain: Plan update lumbar MRI without contrast to assess vertebrogenic low back pain in consideration of intracept, scs, or NS consultation. medrol dose pack for acute on chronic low back pain. continue HEP as tolerated. f/u to review MRI
== END 2024-06-11 10:29 | disposition home or self-care (01) ==
LOC: PM 10:29
PROVIDERS: PCP Family Medicine; Visit Provider Nurse Practitioner
DX: M54.51 Vertebrogenic low back pain (principal)
CPT/HCPCS: G0463

== ENCOUNTER 2024-06-17 12:45 | Outpatient (OUT) | payer MEDICAID, SELFPAY ==
--- NOTE | 2024-06-17 12:47 | MR_ITS ---
[address] [address] Patient Name: VIKKI YEH MRN: [id number] date: 1970 Sex: F Assigned Patient Location: MRI Current Patient Location: MRI Accession/Order Number: [id number] Exam Date: 06/17/2024 15:12 Report Date: 06/17/2024 15:22 At the request of: KVNG AQUINO NP Procedure: MR lumbar spine wo con EXAMINATION: MRI LUMBAR SPINE WITHOUT IV CONTRAST CLINICAL HISTORY: Chronic back pain for 3 months COMPARISON: Lumbar spine series 06/24/2023 TECHNIQUE: Multiecho imaging was performed in the sagittal and axial planes without contrast administration. FINDINGS: Vertebral body heights appear maintained. Modic type endplate degenerative changes. No bone marrow edema. Diffuse disc desiccation. Spinal cord terminates in normal position without abnormal cord signal. No paraspinal mass. Visualized retroperitoneum demonstrates no acute process. At L1-L2: No posterior disc pathology. No neural canal or foraminal stenosis. At L2-L3: No posterior disc pathology. No neural canal or foraminal stenosis. At L3-L4: Diffuse broad-based disc bulge is present with ligamentum flavum hypertrophy and facet joint degenerative changes causing mild canal stenosis. No significant neural foraminal stenosis. At L4-L5: Diffuse broad-based disc bulge is present with ligamentum flavum hypertrophy and facet joint degenerative changes causing mild canal and bilateral neural foraminal stenosis. At L5-S1: Diffuse broad-based disc bulge is present with facet joint degenerative changes. No significant canal or neural foraminal stenosis. MR/MR lumbar spine wo con IMPRESSION: Multilevel degenerative disease as described above without severe canal or neural foraminal stenosis. Impression dictated by: Jesse Flores Jr., D.O. 06/17/2024 3:22 PM Dictation Location: [place] [address] Electronically authenticated by: [id number] Y Date: 06/17/2024 15:22
== END 2024-06-17 12:46 | disposition home or self-care (01) ==
LOC: MRI 12:45
PROVIDERS: PCP Family Medicine; Visit Provider Nurse Practitioner
DX: M54.51 Vertebrogenic low back pain (principal); M50.30 Other cervical disc degeneration, unspecified cervical region
CPT/HCPCS: 72148

== ENCOUNTER 2024-06-24 13:29 | Outpatient (OUT) | payer MEDICAID, SELFPAY ==
--- NOTE | 2024-06-24 13:32 | MM_ITS ---
Patient Name: VIKKI YEH MR#: [id number] : 1970 Exam Date: 06/24/2024 Ordering Doctor: NIR SPIVEY . RADIOLOGY REPORT PROCEDURE: MM TOMOSYNTHESIS SCREENING BI COMPARISON: MM TOMOSYNTHESIS SCREENING BI, 06/24/2023. MM TOMOSYNTHESIS SCREENING BI, 05/12/2021. MM TOMOSYNTHESIS SCREENING BI, 05/10/2020. INDICATIONS: Screening Calculator Name NCI Breast Cancer Risk Assessment Tool 5 Year Breast Cancer Risk 1.10% Lifetime Breast Cancer Risk 8.20% Personal Breast Cancer No Personal Ovarian Cancer No Treatments None Family Cancers Grandmother-paternal with stomach cancer at age 69. LOCATION: [facility] BREAST COMPOSITION: There are scattered areas of fibroglandular density. FINDINGS: DIAGNOSTIC CATEGORY 1--NEGATIVE. RIGHT BREAST: No significant suspicious finding. LEFT BREAST: No significant suspicious finding. RECOMMENDATIONS: ROUTINE MAMMOGRAM AND CLINICAL EVALUATION IN 12 MONTHS. PLEASE NOTE: A NORMAL MAMMOGRAM DOES NOT EXCLUDE THE POSSIBILITY OF BREAST CANCER. A CLINICALLY SUSPICIOUS PALPABLE LUMP SHOULD BE BIOPSIED. Dictated by: Jesse Flores DO on 06/24/2024 at 15:21 Approved by: Jesse Flores DO on 06/24/2024 at 15:23
== END 2024-06-24 13:30 | disposition home or self-care (01) ==
LOC: MAMMO 13:29
PROVIDERS: PCP Family Medicine; Visit Provider Nurse Practitioner
DX: Z12.31 Encounter for screening mammogram for malignant neoplasm of breast (principal); Z80.0 Family history of malignant neoplasm of digestive organs
CPT/HCPCS: 77063; 77067

== ENCOUNTER 2024-07-08 15:04 | Outpatient (OUT) | payer MEDICAID, SELFPAY ==
--- NOTE | 2024-07-08 15:27 | P.CN_ITS ---
Consult Note: HPI Data of Consult Patient: known to practice within the last 3 years Requesting Physician: Kenia English NP Primary Care Provider: GO DOYLE Consult Narrative Reason for consult: back pain Narrative: Bridget molina 53 year old presents for evaluation of severe low back pain. longstanding hx of low back pain >12 months secondary to mulitlevel modic changes, DDD, lumbar facet arthropathy, and stenosis. has completed provider guided HEP >6 weeks without benefit. pt reports significant increase in low back pain with forward flexion over the last 3 months. denies falls/injury. pt utilizing tylenol, baclofen, and salon pas with no improvement. pain today 1/10 with sitting 5/10 with forward flexion and standing. overall 50% improvement as a result of recent MDP. Pt did complete her lumbar MRI which revelead multilevel modic changes at L3,4,5 and multilevel stenosis. cc:: CC: Kenia English NP Review of Systems ROS Status of ROS 10 or more systems reviewed and unremark able except as noted in history and below PFSH PFSH Social History Smoking status: Never smoker Meds Home Medications and Allergies Home Medications ?Medication ?Instructions ?Recorded ?Confirmed ?Type ibuprofen 600 mg tablet 600 mg PO Q8H PRN pain #20 t abs 01/13/23 Rx calcium phos,dibas-vitamin D3 PO QDAY 09/10/23 Histor y loratadine 10 mg tablet 10 mg PO DAILY 09/10/2308/13 History rimegepant 75 mg disintegrating mg PRN migraine headac he 09/10/23 History tablet (Nurtec ODT) methylprednisolone 4 mg tablets in 4 mg PO DAILY #21 e a 06/11/24 Rx a dose pack (Medrol (Shubham)) Allergies Allergy/AdvReac Type Severity Reaction Status Date / Time methazolamide (From Allergy Mild Unknown Verified 09/10/23 15:11 Neptazane) acetaminophen (From Percocet) Allergy Unknown unknown Verified 09/10/23 15:11 doxycycline Allergy Unknown Unknown Verified 09/10/23 15:11 oxycodone (From Percocet) Allergy Unknown Unknown Verified 09/10/23 15:11 Exam Constitutional Documenting provider has reviewed patient's vital signs: yes Common normals: no apparent distress, oriented x3, healthy appearing, alert and well nourished General appearance: cooperative HENMT Common normals: normocephalic, hearing grossly normal bilaterally and moist oral mucous membranes Head and scalp: normocephalic Eye Common normals: PERRL Pupil: PERRL Neck & C-Spine Common normals: full ROM General: normal visual inspection Chest Common normals: inspection of chest normal Respiratory Common normals: normal respiratory effort, no retractions and no use of accessory muscles Back & Pelvis Lumbar spine/lower back: ROM limited, pain with ROM and bend over test abnormal; no lumbar spinal tenderness Other: mild to moderate pain with forward flexion at L3/4 Neuro Common normals: oriented x3 Sensorium/orientation: alert Psych Common normals: mental status grossly normal, thought process normal, cooperative, affect normal, speech normal and activity/motor behavior normal Speech: normal speech Thought process: normal thought process Results Imaging Lumbar MRI : Attestation: I have reviewed the pertinent imaging results. Radiologist's impression: FINDINGS: Vertebral body heights appear maintained. Modic type endplate degenerative changes. No bone marrow edema. Diffuse disc desiccation. Spinal cord terminates in normal position without abnormal cord signal. No paraspinal mass. Visualized retroperitoneum demonstrates no acute process. At L1-L2: No posterior disc pathology. No neural canal or foraminal stenosis. At L2-L3: No posterior disc pathology. No neural canal or foraminal stenosis. At L3-L4: Diffuse broad-based disc bulge is present with ligamentum flavum hypertrophy and facet joint degenerative changes causing mild canal stenosis. No significant neural foraminal stenosis. At L4-L5: Diffuse broad-based disc bulge is present with ligamentum flavum hypertrophy and facet joint degenerative changes causing mild canal and bilateral neural foraminal stenosis. At L5-S1: Diffuse broad-based disc bulge is present with facet joint degenerative changes. No significant canal or neural foraminal stenosis. Additional Findings Additional findings: If on a controlled substance or opioids, I have checked an OARRS report on this patient and there are no aberrancies noted in the prescribing history.??If on a controlled substance or opioid a drug screen was completed and reviewed within the last year, and if there has not been a drug screen completed we ordered one today to monitor higher risk, state monitored pain medication use. As part of providing excellent, safe, comprehensive care, the following was completed at our patient's visit: 1. A medication reconciliation and review to ensure accurate knowledge of current/active medications, including asking our patients to inform us about any [id number] medications or herbal remedies/nutritional supplements/alternative remedies. 2. A review to specifically ensure our patients have had annual screening for screening for depression, screening for tobacco use, and screening for unhealthy alcohol use. For concerning screenings had a discussion with the patient, provided patient education, and recommended follow-up with primary care provider when appropriate. If patient noted with a risk of falling, they received education on strength, gait, and balance training to prevent future risk of falling. Portions of this note may have been carried over from the previous visit and updated as appropriate. Please note this office utilizes paper charting in addition to the electronic medical record. A list of current medications, vitals, and PMH is available there as the clinical staff outside of myself do not have access to [employer] charting during the clinic day operations. As part of providing quality comprehensive care the current medications, vitals, and PMH were reviewed in the paper chart. Assessment and Plan Assessment and Plan (1) Vertebrogenic low back pain: (2) Lumbar stenosis with neurogenic claudication: Plan lumbar MRI reviewed with pt, defer L3 and L4 intracept at this time as pain and functional ability well controlled continue baclofen 10mg BID PRN pain/spasms continue tylenol PRN continue HEP as tolerated f/u PRN
== END 2024-07-08 15:05 | disposition home or self-care (01) ==
LOC: PM 15:05
PROVIDERS: PCP Family Medicine; Visit Provider Nurse Practitioner
DX: M54.51 Vertebrogenic low back pain (principal); M48.062 Spinal stenosis, lumbar region with neurogenic claudication
CPT/HCPCS: G0463